=== PATIENT | male | born 1960 | race Caucasian/White ===

== ENCOUNTER 2019-11-01 11:57 | Inpatient (IN) | payer SELFPAY ==
[2019-11-01] VITALS (11 sets, daily range): BP systolic 105–132; BP diastolic 77–112
[~2019-11-01] VITALS: Ht 175.2 cm; Wt 94.8 kg
[2019-11-01] MEDS ORDERED: ASPIRIN 81 MG CHEW (CHILDREN'S ASA) ONE (12:09)
[2019-11-01] MEDS ORDERED: NS (IVPB) 0 ML ONE (12:09)
[2019-11-01] MEDS ORDERED: ENOXAPARIN 100 MG/1 ML (LOVENOX) SYR ONE (12:09)
[2019-11-01] MEDS ORDERED: DILTIAZEM 125 MG/25 ML IV (CARDIZEM) IV ONE (12:10)
[2019-11-01] MEDS ORDERED: DILTIAZEM 25 MG/5 ML INJ (CARDIZEM) VIAL ONE (12:10)
[2019-11-01] MEDS ORDERED: ENOXAPARIN 100 MG/1 ML (LOVENOX) SYR SC ONE (12:15)
[2019-11-01] MEDS ORDERED: DILTIAZEM IV FOR DRIP 125 MG in NS (IVPB) 100 ML IV SCH (12:15)
[2019-11-01] MEDS ORDERED: ASPIRIN 81 MG CHEW (CHILDREN'S ASA) PO ONE (12:15)
[2019-11-01] MEDS ORDERED: DILTIAZEM 25 MG/5 ML INJ (CARDIZEM) VIAL IVP ONE (12:15)
--- NOTE | 2019-11-01 12:16 | ED Respiratory ---
General Chief Complaint: Respiratory Problems Stated Complaint: SOA;DIZZINESS Source: patient Exam Limitations: no limitations History of Present Illness Date Seen by Provider: Nov 01, 2019 Time Seen by Provider: 12:13 Initial Comments To ER with reports of shortness of breath and dizziness. He's had a cough since [place]. He's had shortness of breath all the time worse with exertion since 1 week prior to . No fevers or chills. Was seen at [facility] today for these complaints simply because he is tired of them, not because they're any worse than they have been for the past 1.5 months. I he was noted to have tachycardia with rate of about 1:30, significant pitting edema and tachypnea. He denies any medication use, he takes an aspirin on an as-needed basis for aches and pains. 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 He is a nonsmoker, only occasionally drinks alcohol about one beer every couple weeks. [facility] did do a portable chest x-ray showing a right-sided pleural effusion, (that x- ray has been cloud to us and is viewable on Synapse). Timing/Duration: constant Severity: moderate Associated Symptoms: cough, shortness of breath Allergies and Home Medications Allergies Coded Allergies: No Known Drug Allergies (Unverified , 11/01/19) Patient Home Medication List Home Medication List Reviewed: Yes Review of Systems Review of Systems Constitutional: see HPI, malaise, weakness EENTM: see HPI Respiratory: see HPI, cough Cardiovascular: no symptoms reported Genitourinary: no symptoms reported Musculoskeletal: no symptoms reported Skin: no symptoms reported Psychiatric/Neurological: No Symptoms Reported Hematologic/Lymphatic: No Symptoms Reported Immunological/Allergic: no symptoms reported Past Cvfylpv-Bipnsc-Hxzfkg Hx Patient Social History Recent Foreign Travel: No Contact w/Someone Who Travel: No Physical Exam Vital Signs - First Documented 11/01/19 11:57 Temp 37.2 Pulse 145 Resp 11 B/P (MAP) 130/112 (118) Pulse Ox 96 O2 Delivery Room Air Capillary Refill : Height: '" Weight: lbs. oz. kg; BMI Method: General Appearance: WD/WN, mild distress (tachypnea. Speaks in full sentences.) HEENT: PERRL/EOMI, normal ENT inspection Neck: non-tender, full range of motion, other (no jugular vein distention though he does have a fairly thick neck which would make this difficult to assess) Respiratory: no respiratory distress, no accessory muscle use, other (diminished right base) Cardiovascular: tachycardia (rate of 130 to 150), irregularly irregular Gastrointestinal: normal bowel sounds, non tender, soft Extremities: other (he has 2+ to 3+ pitting edema up to the mid thighs bilatera lly) Neurologic/Psychiatric: alert, normal mood/affect, oriented x 3 Skin: normal color, warm/dry Progress/Results/Core Measures Suspected Sepsis SIRS Temperature: Pulse: Respiratory Rate: Laboratory Tests 11/01/19 12:08: White Blood Count 13.0H Blood Pressure / Mean: Laboratory Tests 11/01/19 12:08: Creatinine 0.82, INR Comment 1.3, Platelet Count 376, Total Bilirubin 2.7H Results/Orders Lab Results Laboratory Tests Test 11/01/19 12:08 11/01/19 13:25 Range/Units White Blood Count 13.0 H 4.3-11.0 10^3/uL Red Blood Count 5.42 4.35-5.85 10^6/uL Hemoglobin 16.2 13.3-17.7 G/DL Hematocrit 49 40-54 % Mean Corpuscular Volume 90 80-99 FL Mean Corpuscular Hemoglobin 30 25-34 PG Mean Corpuscular Hemoglobin Concent 33 32-36 G/DL Red Cell Distribution Width 13.7 10.0-14.5 % Platelet Count 376 130-400 10^3/uL Mean Platelet Volume 10.5 H 7.4-10.4 FL Neutrophils (%) (Auto) 81 H 42-75 % Lymphocytes (%) (Auto) 12 12-44 % Monocytes (%) (Auto) 7 0-12 % Eosinophils (%) (Auto) 1 0-10 % Basophils (%) (Auto) 0 0-10 % Neutrophils # (Auto) 10.5 H 1.8-7.8 X 10^3 Lymphocytes # (Auto) 1.5 1.0-4.0 X 10^3 Monocytes # (Auto) 0.9 0.0-1.0 X 10^3 Eosinophils # (Auto) 0.1 0.0-0.3 10^3/uL Basophils # (Auto) 0.0 0.0-0.1 10^3/uL Prothrombin Time 16.3 H 12.2-14.7 SEC INR Comment 1.3 0.8-1.4 Activated Partial Thromboplast Time 37 H 24-35 SEC Sodium Level 140 135-145 MMOL/L Potassium Level 3.3 L 3.6-5.0 MMOL/L Chloride Level 103 98-107 MMOL/L Carbon Dioxide Level 21 21-32 MMOL/L Anion Gap 16 H 5-14 MMOL/L Blood Urea Nitrogen 13 7-18 MG/DL Creatinine 0.82 0.60-1.30 MG/DL Estimat Glomerular Filtration Rate > 60 BUN/Creatinine Ratio 16 Glucose Level 139 H 70-105 MG/DL Calcium Level 8.9 8.5-10.1 MG/DL Corrected Calcium 9.5 8.5-10.1 MG/DL Magnesium Level 1.6 1.6-2.4 MG/DL Total Bilirubin 2.7 H 0.1-1.0 MG/DL Aspartate Amino Transf (AST/SGOT) 26 5-34 U/L Alanine Aminotransferase (ALT/SGPT) 32 0-55 U/L Alkaline Phosphatase 78 40-136 U/L Myoglobin 55.5 10.0-92.0 NG/ML Troponin I 0.040 H <0.028 NG/ML B-Type Natriuretic Peptide 1255.4 H <100.0 PG/ML Total Protein 6.6 6.4-8.2 GM/DL Albumin 3.3 3.2-4.5 GM/DL Thyroid Stimulating Hormone (TSH) 0.92 0.35-4.94 UIU/ML Free Thyroxine 1.27 0.70-1.48 NG/DL Urine Opiates Screen NEGATIVE NEGATIVE Urine Oxycodone Screen NEGATIVE NEGATIVE Urine Methadone Screen NEGATIVE NEGATIVE Urine Propoxyphene Screen NEGATIVE NEGATIVE Urine Barbiturates Screen NEGATIVE NEGATIVE Ur Tricyclic Antidepressants Screen NEGATIVE NEGATIVE Urine Phencyclidine Screen NEGATIVE NEGATIVE Urine Amphetamines Screen NEGATIVE NEGATIVE Urine Methamphetamines Screen NEGATIVE NEGATIVE Urine Benzodiazepines Screen NEGATIVE NEGATIVE Urine Cocaine Screen NEGATIVE NEGATIVE Urine Cannabinoids Screen NEGATIVE NEGATIVE My Orders Orders - AC AG APRN Cbc With Automated Diff (11/01/19 12:02) Magnesium (11/01/19 12:02) Ekg Tracing (11/01/19 12:02) Comprehensive Metabolic Panel (11/01/19 12:02) Myoglobin Serum (11/01/19 12:02) Protime With Inr (11/01/19 12:02) Partial Thromboplastin Time (11/01/19 12:02) O2 (11/01/19 12:02) Monitor-Rhythm Ecg Trace Only (11/01/19 12:02) Lipid Panel (11/02/19 06:00) Ed Iv/Invasive Line Start (11/01/19 12:02) BNP (11/01/19 12:02) Troponin I (11/01/19 12:02) Thyroid Stimulating Hormone (11/01/19 12:02) Free T4 (Free Thyroxine) (11/01/19 12:02) Drug Screen Stat (Urine) (11/01/19 12:02) Ct Angio Chest W (11/01/19 12:02) Aspirin Chewable Tablet (Baby Aspirin Ch (11/01/19 12:15) Enoxaparin Injection (Lovenox Injection) (11/01/19 12:15) Ns (Ivpb) (Sodium C... W/Diltiazem Iv Fo (11/01/19 12:15) Diltiazem Injection (Cardizem Injection) (11/01/19 12:15) Aspirin Chewable Tablet (Baby Aspirin Ch (11/01/19 12:09) Ns (Ivpb) (Sodium Chloride 0.9% Ivpb Bag (11/01/19 12:09) Enoxaparin Injection (Lovenox Injection) (11/01/19 12:09) Diltiazem Injection (Cardizem Injection) (11/01/19 12:10) Diltiazem Iv For Drip (Cardizem Iv For D (11/01/19 12:10) Echo W Doppler/Color Flow (11/01/19 12:16) Ns (Ivpb) (Sodium Chloride 0.9%) (11/01/19 12:45) Potassium Cl 10meq/50ml Ivpb (Kcl 10 Meq (11/01/19 12:45) Magnesium 1 Gm/100 Ml Ivpb (Magnesium Higgins (11/01/19 12:45) Furosemide Injection (Lasix Injection) (11/01/19 12:45) Iohexol Injection (Omnipaque 350 Mg/Ml 1 (11/01/19 12:45) Received Contrast (Hold Metformin- Contr (11/01/19 12:45) Ns (Ivpb) (Sodium Chloride 0.9% Ivpb Bag (11/01/19 12:45) Piperacillin Sodium/Tazobactam (Zosyn Vi (11/01/19 13:30) Medications Given in ED Current Medications Medications Dose Ordered Sig/Jamie Route Start Time Stop Time Status Last Admin Dose Admin Aspirin 324 mg ONCE ONCE PO 11/01/19 12:15 11/01/19 12:16 DC 11/01/19 12:15 324 MG Diltiazem HCl 10 mg ONCE ONCE IVP 11/01/19 12:15 11/01/19 12:16 DC 11/01/19 12:17 10 MG Enoxaparin Sodium 100 mg ONCE ONCE SC 11/01/19 12:15 11/01/19 12:16 DC 11/01/19 12:18 100 MG Iohexol 100 ml ONCE ONCE IV 11/01/19 12:45 11/01/19 12:46 DC 11/01/19 13:08 85 ML Piperacillin Sod/ Tazobactam Sod 4.5 gm/Sodium Chloride 100 ml @ 200 mls/hr ONCE ONCE IV 11/01/19 13:30 11/01/19 13:59 DC 11/01/19 13:47 200 MLS/HR Vital Signs/I&O 11/01/19 11/01/19 11:57 12:21 Temp 37.2 Pulse 145 116 Resp 11 20 B/P (MAP) 130/112 (118) 153/113 Pulse Ox 96 94 O2 Delivery Room Air Room Air Capillary Refill : Progress Note : Progress Note NAME: STEVEN LANDA [facility] REC#: [id number] PT STATUS: REG ER : 1960 PHYSICIAN: AC AG APRN ADMIT DATE: 11/01/19/ER Draft Date of Exam:11/01/19 CT ANGIO CHEST W PROCEDURE: CT angiography of the chest with contrast. TECHNIQUE: Multiple contiguous axial images were obtained through the chest after uneventful bolus administration of intravenous contrast. 3D reconstructed CTA MIP acquisitions were also performed. Auto Exposure Controls were utilized during the CT exam to meet ALARA standards for radiation dose reduction. All CT scans use one or more of the following dose optimizing techniques: automated exposure control, MA and/or KvP adjustment based on patient size and exam type or iterative reconstruction. INDICATION: Cough with dizziness and shortness of breath. COMPARISON: No prior studies are available for comparison. FINDINGS: Evaluation of pulmonary arterial system demonstrates numerous filling defects within bilateral lobar, segmental and subsegmental branches involving bilateral upper and lower lobes consistent with pulmonary emboli. No saddle embolus is identified. Heart does appear to be enlarged. There is no pericardial fluid. There is a very small left pleural effusion. There is a large right pleural effusion. There is associated extensive infiltrate throughout the right lower lobe which shows significant consolidation. There is also some moderate consolidation in right middle lobe. Lesser area of airspace infiltrate in the lingula seen. Left upper lobe is clear. There are some mildly prominent lymph nodes in the mediastinum which could be reactive. No definite mass is identified. Upper abdomen is unremarkable. IMPRESSION: Findings consistent with bilateral pulmonary emboli, as described. There is extensive infiltrate and consolidation throughout the right lower lobe and right middle lobe with some patchy lingular infiltrate. There is a large right and small left pleural effusion. No definite underlying mass is identified but follow-up after course of therapy is recommended for further evaluation. Dictated on workstation # [id number] Dict: 11/01/19 1316 Trans: 11/01/19 1336 [facility] [id number] Interpreted by: RIGOBERTO HARRISON MD Electronically signed by: Departure Communication (Admissions) Time/Spoke to Admitting Phy: 13:[address] Hightower, will admit, consult Dr. Munoz as well for the pleural effusion. Time/Spoke to Consulting Phy: 13:[address] Fine, recommends continuing the Lovenox dose at 1 mg/kg twice a day, bilateral lower extremity venous ultrasound, 2-D echocardiogram today, continue the Cardizem drip and add amiodarone drip. 1327-currently blood pressure 117/98, heart rate 104, oxygen saturation 98% 2 L. Cardizem drip infusing at 10 mg an hour. He has received Lovenox here. Impression Primary Impression: Acute cor pulmonale Additional Impression: Atrial fibrillation with rapid ventricular response Disposition: ADMITTED INPATIENT Condition: Stable Admissions Decision to Admit Reason: Admit from ER (General) Decision to Admit/Date: Nov 01, 2019 Time/Decision to Admit Time: 13:16 Departure-Patient Inst. Referrals: [facility] (PCP) Primary Care Physician AC AG APRN Nov 01, 2019 12:16
[2019-11-01 12:19] LABS: BASOPHILS % (AUTO) 0 % (0-10); EOSINOPHILS # (AUTO) 0.1 10^3/uL (0.0-0.3); EOSINOPHILS % (AUTO) 1 % (0-10); HEMATOCRIT 49 % (40-54); HEMOGLOBIN 16.2 G/DL (13.3-17.7); LYMPHOCYTES # (AUTO) 1.5 X 10^3 (1.0-4.0); LYMPHOCYTES % (AUTO) 12 % (12-44); MEAN CORPUSCULAR HEMOGLOBIN 30 PG (25-34); MEAN CORPUSCULAR HGB CONC 33 G/DL (32-36); MEAN CORPUSCULAR VOLUME 90 FL (80-99); MEAN PLATELET VOLUME 10.5 FL (7.4-10.4); MONOCYTES # (AUTO) 0.9 X 10^3 (0.0-1.0); MONOCYTES % (AUTO) 7 % (0-12); NEUTROPHILS # (AUTO) 10.5 X 10^3 (1.8-7.8); NEUTROPHILS % (AUTO) 81 % (42-75); PLATELET COUNT 376 10^3/uL (130-400); RED CELL DISTRIBUTION WIDTH 13.7 % (10.0-14.5)
[2019-11-01 12:31] LABS: INR 1.3 (0.8-1.4); PROTHROMBIN TIME PATIENT 16.3 SEC (12.2-14.7)
[2019-11-01 12:39] LABS: ALANINE AMINOTRANSFERASE 32 U/L (0-55); ALBUMIN 3.3 GM/DL (3.2-4.5); ALKALINE PHOSPHATASE 78 U/L (40-136); BILIRUBIN,TOTAL 2.7 MG/DL (0.1-1.0); BUN/CREATININE RATIO 16; CALCIUM 8.9 MG/DL (8.5-10.1); CARBON DIOXIDE 21 MMOL/L (21-32); CHLORIDE 103 MMOL/L (98-107); CREATININE SERUM 0.82 MG/DL (0.60-1.30); GFR ESTIMATED > 60; GLUCOSE 139 MG/DL (70-105); MAGNESIUM 1.6 MG/DL (1.6-2.4); POTASSIUM 3.3 MMOL/L (3.6-5.0); SODIUM 140 MMOL/L (135-145); TOTAL PROTEIN 6.6 GM/DL (6.4-8.2)
[2019-11-01] MEDS ORDERED: FUROSEMIDE 40 MG/4 ML INJ (LASIX) IVP ONE (12:45)
[2019-11-01] MEDS ORDERED: IOHEXOL 350 MG/ML 100 ML (OMNIPAQUE 350) VIAL IV ONE (12:45)
[2019-11-01] MEDS ORDERED: POTASSIUM CL 10MEQ/50ML IVPB 50 ML IV SCH (12:45)
[2019-11-01] MEDS ORDERED: NS 100 ML (IVPB) BAG IV ONE (12:45)
[2019-11-01] MEDS ORDERED: NS (IVPB) 250 ML IV ONE (12:45)
[2019-11-01] MEDS ORDERED: HOLD METFORMIN - RECEIVED CONTRAST 20 ML VIAL IV SCH (12:45)
[2019-11-01 12:59] LABS: FREE T4 (FREE THYROXINE) 1.27 NG/DL (0.70-1.48)
[2019-11-01] MEDS ORDERED: PIPERACILLIN SODIUM/TAZOBACTAM 4.5 GM in NS (IVPB) 100 ML IV ONE (13:30)
--- NOTE | 2019-11-01 13:31 | NUR ---
hold lasix at this time per Ryne Hernández
[2019-11-01] MEDS: MAGNESIUM 1 GM/100 ML IVPB 100 ML IV SCH ×2 (13:32→17:43)
--- NOTE | 2019-11-01 13:37 | Diagnostic Imaging Report ---
PROCEDURE: CT angiography of the chest with contrast. TECHNIQUE: Multiple contiguous axial images were obtained through the chest after uneventful bolus administration of intravenous contrast. 3D reconstructed CTA MIP acquisitions were also performed. Auto Exposure Controls were utilized during the CT exam to meet ALARA standards for radiation dose reduction. All CT scans use one or more of the following dose optimizing techniques: automated exposure control, MA and/or KvP adjustment based on patient size and exam type or iterative reconstruction. INDICATION: Cough with dizziness and shortness of breath. COMPARISON: No prior studies are available for comparison. FINDINGS: Evaluation of pulmonary arterial system demonstrates numerous filling defects within bilateral lobar, segmental and subsegmental branches involving bilateral upper and lower lobes consistent with pulmonary emboli. No saddle embolus is identified. Heart does appear to be enlarged. There is no pericardial fluid. There is a very small left pleural effusion. There is a large right pleural effusion. There is associated extensive infiltrate throughout the right lower lobe which shows significant consolidation. There is also some moderate consolidation in right middle lobe. Lesser area of airspace infiltrate in the lingula seen. Left upper lobe is clear. There are some mildly prominent lymph nodes in the mediastinum which could be reactive. No definite mass is identified. Upper abdomen is unremarkable. IMPRESSION: Findings consistent with bilateral pulmonary emboli, as described. There is extensive infiltrate and consolidation throughout the right lower lobe and right middle lobe with some patchy lingular infiltrate. There is a large right and small left pleural effusion. No definite underlying mass is identified but follow-up after course of therapy is recommended for further evaluation. Dictated by: Dictated on workstation # [id number]
[2019-11-01 13:45] LABS: AMPHETAMINE SCREEN, URINE NEGATIVE (NEGATIVE); BARBITURATE SCREEN URINE NEGATIVE (NEGATIVE); BENZODIAZEPINES SCREEN URINE NEGATIVE (NEGATIVE); CANNABINOID SCREEN, URINE NEGATIVE (NEGATIVE); COCAINE SCREEN URINE NEGATIVE (NEGATIVE); METHADONE STAT NEGATIVE (NEGATIVE); METHAMPHETAMINE SCREEN URINE S NEGATIVE (NEGATIVE); OPIATE SCREEN URINE NEGATIVE (NEGATIVE); OXYCODONE STAT NEGATIVE (NEGATIVE); PROPOXYPHENE STAT NEGATIVE (NEGATIVE); TRICYCLIC ANTIDEPRESSANTS SCRE NEGATIVE (NEGATIVE)
--- NOTE | 2019-11-01 14:01 | NUR ---
Babatunde in room with pt at this time
--- NOTE | 2019-11-01 15:16 | History & Physical-Hospitalist ---
History of Present Illness HPI/Chief Complaint Chief complaint: Shortness of breath with fatigue History of present illness: This is a 59-year-old male who has not seen a doctor for 5 years but saw [facility] Kaden Lawler when he was last seen who reports he's been in excellent health until Halloween of this year when he began having a cough and shortness of breath and wheezing and severe fatigue. He denied any significant other issues such as weight loss or weight gain but he does report lower extremity edema. He went to the ER was found to have hypoxia cytosis anasarca pleural effusion with bilateral pulmonary emboli and infiltrate with new onset atrial fibrillation with rapid ventricular response with elevated troponin and BNP so he was placed on Lovenox administered to the ICU for close monitoring with cardiology and general surgery consultation. He reports that he had a right lower extremity melanoma at 37 years old status post resection at [facility] but has had no other surgeries or trauma to the left leg where the ultrasound confirmed the acute left lower extremity DVT. 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 He lives alone. Source: patient, RN/MD Exam Limitations: clinical condition Date Seen 11/01/19 Time Seen by a Provider: 15:30 Attending Physician Justyna Hightower DO [facility] Referring Physician Date of Admission Nov 01, 2019 at 13:40 Home Medications & Allergies Home Medications Reviewed patient Home Medication Reconciliation performed by pharmacy medication reconciliations aircraft engine technician and/or nursing. Patients Allergies have been reviewed. 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 in [employer]) Alcohol Use: Denies Use Recreational Drug Use: No Smoking Status: Never a Smoker 2nd Hand Smoke Exposure: No Recent Foreign Travel: No Contact w/other who traveled: No Recent Hopitalizations: No Recent Infectious Disease Expo: No Past Medical History right lower leg melanoma resection 1995 from [facility] Cardiac: Hypertension Cancer: Skin Did You Recieve Any Treatments: Yes What Type of Treatment Did You: Surgical Intervention History of Blood Disorders: No Review of Systems Constitutional: see HPI, dizziness, malaise, weakness Respiratory: cough, dyspnea on exertion, short of breath, wheezing Cardiovascular: chest pain Psychiatric/Neurological: Anxiety All Other Systems Reviewed Negative Unless Noted: Yes Physical Exam Physical Exam Vital Signs Vital Signs - First Documented 11/01/19 11/01/19 11:57 14:00 Temp 37.2 Pulse 145 Resp 11 B/P (MAP) 130/112 (118) Pulse Ox 96 O2 Delivery Room Air O2 Flow Rate 2.00 Capillary Refill : Less Than 3 Seconds Height, Weight, BMI Height: '" Weight: lbs. oz. kg; 34.00 BMI Method: General Appearance: WD/WN, Anxious, Chronically ill, Mild Distress Eyes: Right Eye Normal Inspection, Right Eye PERRL HEENT: PERRL/EOMI, Normal ENT Inspection, Pharynx Normal, Moist Mucous Membranes Neck: Full Range of Motion, Normal Inspection, Non Tender Respiratory: Chest Non Tender, No Respiratory Distress, Accessory Muscle Use, Decreased Breath Sounds, Wheezing Cardiovascular: No Gallop, No JVD, No Murmur, Normal Peripheral Pulses, Irregularly Irregular Gastrointestinal: Normal Bowel Sounds, No Organomegaly, No Pulsatile Mass, Non Tender, Soft Back: Normal Inspection, No CVA Tenderness, No Vertebral Tenderness Extremity: Normal Capillary Refill, Normal Inspection, Normal Range of Motion, Non Tender, No Calf Tenderness, Pedal Edema Neurologic/Psychiatric: Alert, Oriented x3, No Motor/Sensory Deficits, Normal 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 Assessment/Plan Admission Diagnosis Assessment: Bilateral pulmonary emboli Left lower extremity DVT acute New onset atrial fibrillation with rapid ventricular response History of melanoma 1996 status post resection right lower leg at [facility] at 37 years old Hypertension Elevated troponin likely Type II NSTEMI Elevated BNP checking echocardiogram Right-sided pleural effusion consulting general surgery for possible t horacentesis Right-sided pneumonia Hypoxia Tachycardia Low albumin Hypokalemia Plan: Lovenox Supportive care IV antibiotics Oxygen Cardizem drip Cardiology consult General surgery consult Monitor closely Admission Status: Inpatient Order (span 2 midnights) Reason for Inpatient Admission: Bilateral pulmonary emboli with infiltrate and hypoxemia and tachycardia and elevated troponin Diagnosis/Problems Diagnosis/Problems (1) Bilateral pulmonary embolism (2) Acute cor pulmonale Status: Acute (3) Atrial fibrillation with rapid ventricular response Status: Acute (4) Acute CHF Status: Acute Qualifiers: Heart failure type: unspecified Qualified Codes: I50.9 - Heart failure, unspecified (5) History of melanoma (6) Left leg DVT (7) Elevated troponin (8) Elevated brain natriuretic peptide (BNP) level (9) Anxiety (10) Abnormal albumin JUSTYNA HIGHTOWER DO Nov 01, 2019 15:16
[2019-11-01 15:26] LABS: ABG BASE EXCESS -0.5 MMOL/L (-2.5-2.5); ABG OXYGEN SATURATION 98 % (94-100); ABG PCO2 29 MMHG (35-45); ABG PO2 84 MMHG (79-93); ABG TCO2 23.4 MMOL/L (21.0-31.0)
[2019-11-01 15:28] LABS: ALLENS TEST YES-POS; INSPIRED O2 2; PATIENT TEMP 36.4; VENTILATOR NO
[2019-11-01] MEDS ORDERED: VITA400C60 PO (15:43)
[2019-11-01] MEDS ORDERED: ASPI325T32 PO (15:43)
[2019-11-01] MEDS ORDERED: MULT-851 PO (15:43)
[2019-11-01] MEDS ORDERED: IBUP-30 PO (15:43)
[2019-11-01] MEDS ORDERED: CYAN-41 PO (15:43)
--- NOTE | 2019-11-01 15:44 | NUR ---
PATIENT DOES NOT TAKE ANY PRESCRIPTION MEDICATION. HE LISTS HIS OTC MEDS. OTC: ASPIRIN 325MG PRN IBU 200MG PRN VITAMIN E DAILY VITAMIN B12 DAILY MTV DAILY
--- NOTE | 2019-11-01 15:48 | Diagnostic Imaging Report ---
PROCEDURE: US Venous Lower Ext Jose. TECHNIQUE: Multiple real-time grayscale images were obtained over the lower extremities in various projections, bilaterally. Additional duplex Doppler and color Doppler images were also obtained. INDICATION: Pulmonary emboli, deep venous thrombosis, and shortness of breath COMPARISON: None available. FINDINGS: Internal echoes, lack of flow, and lack of compression are noted within the left popliteal vein. Similar findings are identified extending into the deep venous structures of the left calf region, including the left peroneal vein. Otherwise, normal flow, compression, and augmentation within the visualized deep venous structures of the bilateral lower extremities. IMPRESSION: Occlusive thrombus within the left popliteal vein extending into the deep venous structures of the left calf region. No evidence of deep venous thrombosis within the right lower extremity. Report given to Ryne Hernández APRN, at 5:04 p.m. 11/01/2018/onel Dictated by: Dictated on workstation # [id number]
--- NOTE | 2019-11-01 15:48 | Consultation-Cardiology ---
HPI-Cardiology Cardiology Consultation: Date of Consultation 11/01/19 Date of Admission Attending Physician Justyna Hightower DO Admitting Physician [place] Consulting Physician Vincent FINE MD HPI: Time Seen by a Provider: 15:00 Chief Complaint: Shortness of breath, cough This is a 59-year-old gentleman who presents to the ER with shortness of breath, cough and occasional dizziness. He is been having cough before Thanks[place] and has been getting worse. He complains of hemoptysis as well. He denies active smoking. He does drink alcohol occasionally. He denies any pertinent family history. Also complains of tachycardia and palpitations. Significant shortness of breath resulted in him coming to the ER. Review of Systems-Cardiology Review of Systems Constitutional: As described under HPI; No As described under HPI, No no symptoms reported, No chills, No fever, No lightheadedness Eyes: No As described under HPI, No no symptoms reported, No blindness, No blurred vision, No contact lenses, No drainage, No decreased acuity, No foreign body sensation, No pain, No vision change Ears/Nose/Throat: No As described under HPI, No no symptoms reported, No chronic hearing loss, No ear discharge, No ear pain, No nasal drainage, No ulcerations Respiratory: No no symptoms reported; As described under HPI; No As described under HPI; cough, orthopnea; No shortness of breath, No SOB with excertion Cardiovascular: No no symptoms reported; As described under HPI; No As described under HPI, No chest pain; edema, irregular heart rate; No lightheadedness; palpitations Gastrointestinal: No no symptoms reported, No As described under HPI, No abdomen distended, No abdominal pain, No blood streaked bowels, No constipation, No diarrhea, No nausea, No vomiting, No stool coloration changes Genitourinary: No As described under HPI, No burning, No dysuria, No discharge, No frequency, No flank pain, No hematuria, No urgency Skin: No rash, No skin related problems, No ulcerations Psychiatric/Neurological: No anxiety, No depression, No seizure, No focal weakness, No syncope Hematologic: No bleeding abnormalities DWM-Ptcfds-Sbupiz Hx Patient Social History Alcohol Use: Occasionally Uses Recreational Drug Use: No 2nd Hand Smoke Exposure: No Recent Foreign Travel: No Recent Infectious Disease Expo: No Hospitalization with Isolation: Denies Immunizations Up To Date Date of Influenza Vaccine: Nov 16, 1986 Past Medical History PMH As described under Assessment. Allergies and Home Medications Allergies Coded Allergies: No Known Drug Allergies (Unverified , 11/01/19) Patient Home Medication List Home Medication List Reviewed: Yes Physical Exam-Cardiology Physical Exam Vital Signs/I&O 11/01/19 11/01/19 11/01/19 11/01/19 11:57 12:21 14:00 14:11 Temp 37.2 37.2 Pulse 145 116 79 Resp 11 20 20 B/P (MAP) 130/112 (118) 153/113 120/90 (126) Pulse Ox 96 94 98 98 O2 Delivery Room Air Room Air Nasal Cannula Room Air O2 Flow Rate 2.00 11/01/19 11/01/19 14:50 15:24 Pulse 89 O2 Delivery Nasal Cannula O2 Flow Rate 2.00 Capillary Refill : Less Than 3 Seconds Constitutional: appears stated age, apparent distress HEENT: No PERRL, No normal ENT inspection, No TMs normal, No pharynx normal, No scleral icterus (R), No scleral icterus (L), No pale conjunctivae (R), No pale conjunctivae (L), No photophobia, No TM abnormal (R), No TM abnormal (L), No pharyngeal erythema, No tonsillar exudate, No other, No discharge, No EOMI, No hearing is well preserved, No hard of hearing, No oral hygience is good, No ulceration, No xanthelasmas are seen Neck: No non-tender, No full range of motion, No supple, No normal inspection, No carotid bruit, No limited range of motion, No lymphadenopathy (R), No lymphadenopathy (L), No tender lateral, No tender midline, No thyromegaly, No other, No carotid pulses are 2 + bilaterally, No with good upstrokes Respiratory: accessory muscle use, chest is bilaterally symmetric, other (decreased air entry bilaterally) Cardiovascular: irregularly irregular, tachycardia, S1 and S2 Gastrointestinal: soft, audible bowel sounds; No spleenomegaly Rectal: deferred Extremities: normal range of motion, non-tender, normal inspection; No clubbing, No cyanosis; no lower extremity edema bilateral; No significant edema Neurologic/Psychiatric: no motor/sensory deficits, alert, normal mood/affect, oriented x 3, power is 5/5 both on sides Skin: normal color, warm/dry; No rash, No ulcerations Data Review Labs Laboratory Tests 11/01/19 12:08: White Blood Count 13.0H, Red Blood Count 5.42, Hemoglobin 16.2, Hematocrit 49, Mean Corpuscular Volume 90, Mean Corpuscular Hemoglobin 30, Mean Corpuscular Hemoglobin Concent 33, Red Cell Distribution Width 13.7, Platelet Count 376, Mean Platelet Volume 10.5H, Neutrophils (%) (Auto) 81H, Lymphocytes (%) (Auto) 12, Monocytes (%) (Auto) 7, Eosinophils (%) (Auto) 1, Basophils (%) (Auto) 0, Neutrophils # (Auto) 10.5H, Lymphocytes # (Auto) 1.5, Monocytes # (Auto) 0.9, Eosinophils # (Auto) 0.1, Basophils # (Auto) 0.0, Prothrombin Time 16.3H, INR Comment 1.3, Activated Partial Thromboplast Time 37H, Sodium Level 140, Potassium Level 3.3L, Chloride Level 103, Carbon Dioxide Level 21, Anion Gap 16H , Blood Urea Nitrogen 13, Creatinine 0.82, Estimat Glomerular Filtration Rate > 60, BUN/Creatinine Ratio 16, Glucose Level 139H, Calcium Level 8.9, Corrected Calcium 9.5, Magnesium Level 1.6, Total Bilirubin 2.7H, Aspartate Amino Transf (AST/SGOT) 26, Alanine Aminotransferase (ALT/SGPT) 32, Alkaline Phosphatase 78, Myoglobin 55.5, Troponin I 0.040H, B-Type Natriuretic Peptide 1255.4H, Total Protein 6.6, Albumin 3.3, Thyroid Stimulating Hormone (TSH) 0.92, Free Thyroxine 1.27 11/01/19 13:25: Urine Opiates Screen NEGATIVE, Urine Oxycodone Screen NEGATIVE, Urine Methadone Screen NEGATIVE, Urine Propoxyphene Screen NEGATIVE, Urine Barbiturates Screen NEGATIVE, Ur Tricyclic Antidepressants Screen NEGATIVE, Urine Phencyclidine Screen NEGATIVE, Urine Amphetamines Screen NEGATIVE, Urine Methamphetamines Screen NEGATIVE, Urine Benzodiazepines Screen NEGATIVE, Urine Cocaine Screen NEGATIVE, Urine Cannabinoids Screen NEGATIVE 11/01/19 14:50: Lactic Acid Level 1.94 11/01/19 15:15: Blood Gas Puncture Site R RADIAL, Blood Gas Patient Temperature 36.4, Arterial Blood pH 7.50H, Arterial Blood Partial Pressure CO2 29L, Arterial Blood Partial Pressure O2 84, Arterial Blood HCO3 23, Arterial Blood Total CO2 23.4, Arterial Blood Oxygen Saturation 98, Arterial Blood Base Excess -0.5, Benjamin Test YES-POS, Blood Gas Ventilator Setting NO, Blood Gas Inspired Oxygen 2 Microbiology 11/01/19 Influenza Types A,B Antigen (JENNIFER) - Final, Complete ECG Impression ECG Initial ECG Impression: Atrial Fibrillation w/RVR A/P-Cardiology Assessment/Admission Diagnosis Bilateral PE, Severe right-sided pneumonia, Non-STEMI, Atrial fibrillation with rapid ventricular rate, Plan Bilateral PE, start PE dose enoxaparin. Plan to change to oral anticoagulation in the next 24 hours. Rule out DVT with venous ultrasounds. Severe right-sided pneumonia, broad-spectrum antibiotics. Defer to the primary team. Non-STEMI, could be type II myocardial infarction secondary to severe systemic illness including bilateral PE and severe right-sided pneumonia. Atrial fibrillation with rapid ventricular rate, anticoagulation and rate control. IV amiodarone as well. Unlikely to convert till resolution of severe systemic illness. Critically ill patient with numerous pulmonary and cardiac active medical issues as above. Thank you for your consultation. Please call me if you have any questions. Bruce Fine MD, FACP, FACC, FSCAI, FHRS, CCDS Interventional Cardiology Cardiac Electrophysiology Vascular Medicine and Endovascular Interventions Clinical Quality Measures DVT/VTE Risk/Contraindication: Risk Factor Score Per Nursin RFS Level Per Nursing on Admit: 4+=Very High Vincent FINE MD Nov 01, 2019 15:48
[2019-11-01] MEDS ORDERED: RT-ALBUTEROL/IPRATROPIUM 3 ML (DUONEB) VIAL INH PRN (16:00)
[2019-11-01] MEDS ORDERED: CATHETER FLUSH 10 ML SYR IV PRN (16:30)
--- NOTE | 2019-11-01 16:31 | Consultation - Surgery ---
DARCIEARBEN,MED STUDENT 11/01/19 1631: History of Present Illness History of Present Illness Patient Consulted On(sis/time) 11/01/19 16:28 Date Seen by Provider: Nov 01, 2019 Time Seen by Provider: 16:15 History of Present Illness HPI per IM: This is a 59-year-old male who has not seen a doctor for 5 years but saw [facility] Kaden Lawler when he was last seen who reports he's been in excellent health until of this year when he began having a cough and shortness of breath and wheezing and severe fatigue. He denied any significant other issues such as weight loss or weight gain but he does report lower extremity edema. He went to the ER was found to have hypoxia cytosis anasarca pleural effusion with bilateral pulmonary emboli and infiltrate with new onset atrial fibrillation with rapid ventricular response with elevated troponin and BNP so he was placed on Lovenox administered to the ICU for close monitoring with cardiology and general surgery consultation. He reports that he had a right lower extremity melanoma at 37 years old status post resection at [facility] but has had no other surgeries or trauma to the left leg where the ultrasound confirmed the acute left lower extremity DVT. 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 He lives alone. Patient examined at bedside this afternoon. He states he first began feeling short of breath around , and it has progressively gotten worse since then He states it feels like he cannot get air into his lungs. He also reports a cough since , and that he has been coughing up phlegm. He states hes been very fatigued and has had weight loss, but is unsure of how much. Allergies and Home Medications Allergies Coded Allergies: No Known Drug Allergies (Unverified , 11/01/19) Home Medications Aspirin 325 Mg Tablet.dr, 325 MG PO DAILY PRN for PAIN-MILD (1-4), (Reported) Cyanocobalamin (Vitamin B-12) 1,000 Mcg Tablet, 1,000 MCG PO DAILY, (Reported) Ibuprofen 200 Mg Tablet, 200 MG PO Q6H PRN for PAIN-MILD (1-4), (Reported) Multivits-Minerals/FA/Lycopene 1 Each Tablet, 1 TAB PO DAILY, (Reported) Vitamin E Acetate 400 Unit Capsule, 400 UNIT PO DAILY, (Reported) Past Hionvbo-Pniifb-Bocsfm Hx Patient Social History Alcohol Use: Denies Use Recreational Drug Use: No Smoking Status: Never a Smoker 2nd Hand Smoke Exposure: No Recent Foreign Travel: No Contact w/Someone Who Travel: No Recent Infectious Disease Expo: No Recent Hopitalizations: No Immunizations Up To Date Date of Influenza Vaccine: Nov 16, 1986 Surgeries History of Surgeries: Yes (skin cancer) Cardiovascular History of Cardiac Disorders: Yes Cardiac Disorders: Hypertension Neurological History of Neurological Disord: No Genitourinary History of Genitourinary Disor: No Gastrointestinal History of Gastrointestinal Di: No Musculoskeletal History of Musculoskeletal Dis: No Endocrine History of Endocrine Disorders: No HEENT History of HEENT Disorders: No Cancer History of Cancer: Yes Cancer: Skin Psychosocial History of Psychiatric Problem: No Integumentary History of Skin or Integumenta: Yes (skin cancer) Blood Transfusions History of Blood Disorders: No Family Medical History Significant Family History: Hypertension (Father) Review of Systems-General Constitutional: chills; No fever; weight loss EENTM: No blurred vision, No double vision, No eye pain Respiratory: cough, phlegm, short of breath, wheezing Cardiovascular: No chest pain; edema, palpitations Gastrointestinal: No abdominal pain, No constipation, No diarrhea Genitourinary: No dysuria, No frequency, No hematuria Musculoskeletal: No joint pain, No joint swelling Skin: No change in color; hx of skin cancer Psychiatric/Neurological: Denies Numbness, Denies Tingling Other Hematologic: no abnormal bleeding or bruising Physical Exam-General Problems Physical Exam Vital Signs Vital Signs - First Documented 11/01/19 11/01/19 11:57 14:00 Temp 37.2 Pulse 145 Resp 11 B/P (MAP) 130/112 (118) Pulse Ox 96 O2 Delivery Room Air O2 Flow Rate 2.00 Capillary Refill : Less Than 3 Seconds General Appearance: WD/WN, mild distress Eyes: Bilateral Eye PERRL, Bilateral Eye EOMI HEENT: No scleral icterus (R), No scleral icterus (L), No pharyngeal erythema Neck: non-tender, supple Respiratory: decreased breath sounds (right lower and middle lobes); No crackles Cardiovascular: no murmur, tachycardia, irregularly irregular Peripheral Pulses: 2+ Dorsalis Pedis (R), 2+ Left Dors-Pedis (L), 2+ Radial Pulses (R), 2+ Radial Pulses (L) Gastrointestinal: normal bowel sounds, non tender, soft, distended Extremities: normal capillary refill, pedal edema Neurologic/Psychiatric: alert, normal mood/affect, oriented x 3 Skin: normal color, warm/dry; No diaphoresis Lymphatic: no adenopathy (cervical and supraclavicular) Data Review Labs Laboratory Tests 11/01/19 12:08: White Blood Count 13.0H, Red Blood Count 5.42, Hemoglobin 16.2, Hematocrit 49, Mean Corpuscular Volume 90, Mean Corpuscular Hemoglobin 30, Mean Corpuscular Hemoglobin Concent 33, Red Cell Distribution Width 13.7, Platelet Count 376, Mean Platelet Volume 10.5H, Neutrophils (%) (Auto) 81H, Lymphocytes (%) (Auto) 12, Monocytes (%) (Auto) 7, Eosinophils (%) (Auto) 1, Basophils (%) (Auto) 0, Neutrophils # (Auto) 10.5H, Lymphocytes # (Auto) 1.5, Monocytes # (Auto) 0.9, Eosinophils # (Auto) 0.1, Basophils # (Auto) 0.0, Prothrombin Time 16.3H, INR Comment 1.3, Activated Partial Thromboplast Time 37H, Sodium Level 140, Potassium Level 3.3L, Chloride Level 103, Carbon Dioxide Level 21, Anion Gap 16H , Blood Urea Nitrogen 13, Creatinine 0.82, Estimat Glomerular Filtration Rate > 60, BUN/Creatinine Ratio 16, Glucose Level 139H, Calcium Level 8.9, Corrected Calcium 9.5, Magnesium Level 1.6, Total Bilirubin 2.7H, Aspartate Amino Transf (AST/SGOT) 26, Alanine Aminotransferase (ALT/SGPT) 32, Alkaline Phosphatase 78, Myoglobin 55.5, Troponin I 0.040H, B-Type Natriuretic Peptide 1255.4H, Total Protein 6.6, Albumin 3.3, Thyroid Stimulating Hormone (TSH) 0.92, Free Thyroxine 1.27 11/01/19 13:25: Urine Opiates Screen NEGATIVE, Urine Oxycodone Screen NEGATIVE, Urine Methadone Screen NEGATIVE, Urine Propoxyphene Screen NEGATIVE, Urine Barbiturates Screen NEGATIVE, Ur Tricyclic Antidepressants Screen NEGATIVE, Urine Phencyclidine Screen NEGATIVE, Urine Amphetamines Screen NEGATIVE, Urine Methamphetamines Screen NEGATIVE, Urine Benzodiazepines Screen NEGATIVE, Urine Cocaine Screen NEGATIVE, Urine Cannabinoids Screen NEGATIVE 11/01/19 14:50: Lactic Acid Level 1.94 11/01/19 15:15: Blood Gas Puncture Site R RADIAL, Blood Gas Patient Temperature 36.4, Arterial Blood pH 7.50H, Arterial Blood Partial Pressure CO2 29L, Arterial Blood Partial Pressure O2 84, Arterial Blood HCO3 23, Arterial Blood Total CO2 23.4, Arterial Blood Oxygen Saturation 98, Arterial Blood Base Excess -0.5, Benjamin Test YES-POS, Blood Gas Ventilator Setting NO, Blood Gas Inspired Oxygen 2 Microbiology 11/01/19 Influenza Types A,B Antigen (JENNIFER) - Final, Complete Radiology Date of Exam:11/01/19 CT ANGIO CHEST W PROCEDURE: CT angiography of the chest with contrast. TECHNIQUE: Multiple contiguous axial images were obtained through the chest after uneventful bolus administration of intravenous contrast. 3D reconstructed CTA MIP acquisitions were also performed. Auto Exposure Controls were utilized during the CT exam to meet ALARA standards for radiation dose reduction. All CT scans use one or more of the following dose optimizing techniques: automated exposure control, MA and/or KvP adjustment based on patient size and exam type or iterative reconstruction. INDICATION: Cough with dizziness and shortness of breath. COMPARISON: No prior studies are available for comparison. FINDINGS: Evaluation of pulmonary arterial system demonstrates numerous filling defects within bilateral lobar, segmental and subsegmental branches involving bilateral upper and lower lobes consistent with pulmonary emboli. No saddle embolus is identified. Heart does appear to be enlarged. There is no pericardial fluid. There is a very small left pleural effusion. There is a large right pleural effusion. There is associated extensive infiltrate throughout the right lower lobe which shows significant consolidation. There is also some moderate consolidation in right middle lobe. Lesser area of airspace infiltrate in the lingula seen. Left upper lobe is clear. There are some mildly prominent lymph nodes in the mediastinum which could be reactive. No definite mass is identified. Upper abdomen is unremarkable. IMPRESSION: Findings consistent with bilateral pulmonary emboli, as described. There is extensive infiltrate and consolidation throughout the right lower lobe and right middle lobe with some patchy lingular infiltrate. There is a large right and small left pleural effusion. No definite underlying mass is identified but follow-up after course of therapy is recommended for further evaluation. Dictated by: Dictated on workstation # [id number] Clinical Quality Measures DVT/VTE Risk/Contraindication: Risk Factor Score Per Nursin RFS Level Per Nursing on Admit: 4+=Very High MALA JENKINS DO 11/01/19 1725: History of Present Illness History of Present Illness Time Seen by Provider: 16:42 History of Present Illness Pt seen and examined, states "I just want to be able to breathe better". Feels SOB all the time. Pt denies CP with deep breaths. Allergies and Home Medications Allergies Coded Allergies: No Known Drug Allergies (Unverified , 11/01/19) Home Medications Aspirin 325 Mg Tablet.dr, 325 MG PO DAILY PRN for PAIN-MILD (1-4), (Reported) Cyanocobalamin (Vitamin B-12) 1,000 Mcg Tablet, 1,000 MCG PO DAILY, (Reported) Ibuprofen 200 Mg Tablet, 200 MG PO Q6H PRN for PAIN-MILD (1-4), (Reported) Multivits-Minerals/FA/Lycopene 1 Each Tablet, 1 TAB PO DAILY, (Reported) Vitamin E Acetate 400 Unit Capsule, 400 UNIT PO DAILY, (Reported) Patient Home Medication List Home Medication List Reviewed: Yes Past Extjqoz-Enkxow-Rbeeyk Hx Patient Social History Alcohol Use: Rarely Uses Recreational Drug Use: No Smoking Status: Never a Smoker 2nd Hand Smoke Exposure: No Recent Foreign Travel: No Contact w/Someone Who Travel: No Recent Infectious Disease Expo: No Recent Hopitalizations: No Seasonal Allergies Seasonal Allergies: No Surgeries History of Surgeries: Yes (resection of melanoma right lower leg) Respiratory History of Respiratory Disorde: Yes (SOB past 2 months, no medical diagnosis before now) Cardiovascular History of Cardiac Disorders: Yes Cardiac Disorders: Hypertension Neurological History of Neurological Disord: No Genitourinary History of Genitourinary Disor: No Gastrointestinal History of Gastrointestinal Di: No Musculoskeletal History of Musculoskeletal Dis: No Endocrine History of Endocrine Disorders: No HEENT History of HEENT Disorders: No Loss of Vision: Denies Hearing Impairment: Denies Cancer History of Cancer: Yes Cancer: Melanoma Psychosocial History of Psychiatric Problem: No Integumentary History of Skin or Integumenta: Yes (melenoma, right leg) Blood Transfusions History of Blood Disorders: No Review of Systems-General Musculoskeletal: No back pain, No muscle stiffness, No muscle cramps Skin: No change in hair/nails Psychiatric/Neurological: Denies Anxiety, Denies Depressed Physical Exam-General Problems Physical Exam HEENT: pharynx normal Gastrointestinal: normal bowel sounds, non tender, soft Rectal: deferred Back: CVA tenderness (R); No CVA tenderness (L), No vertebral tenderness Extremities: no calf tenderness, normal capillary refill Lymphatic: no adenopathy (cervical and supraclavicular, axillary or groin) Assessment/Plan Assessment/Plan Assessment/Plan Right Pleural Effusion Right Middle and Lower lobe Pneumonia B/L PE AFib with RVR SOB (because of all the above) Pt has a moderate right pleural effusion seen on chest CT; it is difficult to determine how much this is contributing to his SOB. He is on Lovenox because of the PE and Afib; which would be a relative contraindication to Thoracentesis. The Lovenox can be stopped if it becomes apparent that Thoracentesis would help his condition. Pt is on IV ABX for the pneumonia, he needs pulmonary toilet and breathing treatments per RT. I will follow along. Supervisory-Addendum Brief Verification & Attestation Participated in pt care: history, MDM, physical Personally performed: exam, history, MDM Care discussed with: Medical Student Procedures: n/a Verification and Attestation of Medical Student E/M Service A medical student performed and documented this service in my presence. I reviewed and verified all information documented by the medical student and made modifications to such information, when appropriate. I personally performed the physical exam and medical decision making. Mala Jenkins, Nov 01, 2019,17:32 ARBEN SPRAGUE,MED STUDENT Nov 01, 2019 16:31 MALA JENKINS DO Nov 01, 2019 17:25
[2019-11-01] MEDS: AMIODARONE 450 MG/250 ML D5W EXCEL IV SCH ×2 (16:33)
[2019-11-01] MEDS: DILTIAZEM 125 MG/NS 100 ML IV SCH ×2 (17:29)
[2019-11-01] MEDS: ENOXAPARIN 100 MG/1 ML (LOVENOX) SYR SC SCH (17:49)
[2019-11-01] MEDS: RT-ALBUTEROL/IPRATROPIUM 3 ML (DUONEB) VIAL INH SCH ×2 (18:58→22:51)
[2019-11-01] MEDS: inSUlin ASPART (NovoLOG) 1 UNIT/0.01 ML (CHARGE PER UNIT) SC SCH (21:05)
[2019-11-01] MEDS: PIPERACILLIN/TAZO 4.5 GM/NS 100 ML IV SCH ×2 (21:05)
[2019-11-02] VITALS (24 sets, daily range): BP systolic 100–136; BP diastolic 82–124
[2019-11-02] MEDS: AMIODARONE 450 MG/250 ML D5W EXCEL IV SCH ×4 (00:07→08:23)
[2019-11-02] MEDS: DILTIAZEM 125 MG/NS 100 ML IV SCH ×2 (01:49)
[2019-11-02 03:57] LABS: BASOPHILS % (AUTO) 0 % (0-10); EOSINOPHILS # (AUTO) 0.1 10^3/uL (0.0-0.3); EOSINOPHILS % (AUTO) 1 % (0-10); HEMATOCRIT 46 % (40-54); HEMOGLOBIN 14.8 G/DL (13.3-17.7); LYMPHOCYTES # (AUTO) 1.2 X 10^3 (1.0-4.0); LYMPHOCYTES % (AUTO) 11 % (12-44); MEAN CORPUSCULAR HEMOGLOBIN 30 PG (25-34); MEAN CORPUSCULAR HGB CONC 33 G/DL (32-36); MEAN CORPUSCULAR VOLUME 91 FL (80-99); MONOCYTES # (AUTO) 0.7 X 10^3 (0.0-1.0); MONOCYTES % (AUTO) 7 % (0-12); NEUTROPHILS % (AUTO) 82 % (42-75); PLATELET COUNT 374 10^3/uL (130-400); RED CELL DISTRIBUTION WIDTH 13.6 % (10.0-14.5)
[2019-11-02] MEDS: RT-ALBUTEROL/IPRATROPIUM 3 ML (DUONEB) VIAL INH SCH ×6 (04:15→21:38)
[2019-11-02 04:22] LABS: ALANINE AMINOTRANSFERASE 32 U/L (0-55); ALKALINE PHOSPHATASE 82 U/L (40-136); BILIRUBIN,TOTAL 1.8 MG/DL (0.1-1.0); BUN/CREATININE RATIO 20; CALCIUM 8.7 MG/DL (8.5-10.1); CARBON DIOXIDE 17 MMOL/L (21-32); CHLORIDE 107 MMOL/L (98-107); CHOLESTEROL 109 MG/DL (< 200); CREATININE SERUM 0.86 MG/DL (0.60-1.30); GFR ESTIMATED > 60; GLUCOSE 169 MG/DL (70-105); HDL CHOLESTEROL 17 MG/DL (40-60); MAGNESIUM 1.9 MG/DL (1.6-2.4); PHOSPHORUS 3.8 MG/DL (2.3-4.7); POTASSIUM 3.6 MMOL/L (3.6-5.0); SODIUM 139 MMOL/L (135-145); TOTAL PROTEIN 6.4 GM/DL (6.4-8.2); TRIGLYCERIDES 79 MG/DL (<150); VLDL CHOLESTEROL 16 MG/DL (5-40)
[2019-11-02] MEDS: ENOXAPARIN 100 MG/1 ML (LOVENOX) SYR SC SCH ×2 (04:27→17:31)
[2019-11-02] MEDS: PIPERACILLIN/TAZO 4.5 GM/NS 100 ML IV SCH ×6 (04:28→20:43)
[2019-11-02] MEDS: MAGNESIUM 1 GM/100 ML IVPB 100 ML IV SCH (06:33)
[2019-11-02] MEDS: POTASSIUM CL 10MEQ/50ML IVPB 50 ML IV SCH (06:33)
[2019-11-02] MEDS: KCL 20 MEQ TAB (K-DUR) PO SCH (06:34)
[2019-11-02] MEDS: inSUlin ASPART (NovoLOG) 1 UNIT/0.01 ML (CHARGE PER UNIT) SC SCH ×4 (06:34→20:43)
--- NOTE | 2019-11-02 07:43 | Diagnostic Imaging Report ---
INDICATION: Pulmonary embolus. TECHNIQUE: Single view chest 3:34 AM. CORRELATION STUDY: 11/01/2019 FINDINGS: Heart size remains enlarged. The pulmonary vasculature is slightly increased from prior study. Rather extensive infiltrate and consolidation throughout the right lung base is present. Suspect for small patchy area of infiltrate of the lingula and left lung base. Moderate right and small left pleural effusion. IMPRESSION: 1. Cardiac enlargement, stable vasculature slightly increased. 2. Extensive consolidation and likely effusion at the right lung base and to a lesser degree left lung base persists. Stable to perhaps minimally increased on the right. Dictated by: Dictated on workstation # [id number]
[2019-11-02] MEDS: PANTOPRAZOLE 40 MG (PROTONIX) VIAL IV SCH (08:13)
--- NOTE | 2019-11-02 10:59 | Progress Note - Hospitalist ---
Subjective HPI/CC On Admission Date Seen by Provider: Nov 02, 2019 Time Seen by Provider: 10:45 Chief complaint: Shortness of breath with fatigue History of present illness: This is a 59-year-old male who has not seen a doctor for 5 years but saw [facility] Kaden Lawler when he was last seen who reports he's been in excellent health until of this year when he began having a cough and shortness of breath and wheezing and severe fatigue. He denied any significant other issues such as weight loss or weight gain but he does report lower extremity edema. He went to the ER was found to have hypoxia cytosis anasarca pleural effusion with bilateral pulmonary emboli and infiltrate with new onset atrial fibrillation with rapid ventricular response with elevated troponin and BNP so he was placed on Lovenox administered to the ICU for close monitoring with cardiology and general surgery consultation. He reports that he had a right lower extremity melanoma at 37 years old status post resection at [facility] but has had no other surgeries or trauma to the left leg where the ultrasound confirmed the acute left lower extremity DVT. 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 He lives alone. Subjective/Events-last exam Patient doing better Still dyspneic but he has "breathed hard" since ABG reviewed Oxygen maintained Lovenox tolerated Abx maintained Reviewed labs Conferred with rn medical surgical of Systems General: Fatigue Pulmonary: Dyspnea Focused Exam Lactate Level 11/01/19 14:50: Lactic Acid Level 1.94 Objective Exam Vital Signs Vital Signs Date Time Temp Pulse Resp B/P (MAP) Pulse Ox O2 Delivery O2 Flow Rate FiO2 11/02/19 16:00 92 35 113/95 (101) 97 Nasal Cannula 2.00 11/02/19 15:30 36.2 Capillary Refill : Less Than 3 Seconds General Appearance: WD/WN, Anxious, Chronically ill, Mild Distress Respiratory: No Respiratory Distress, Accessory Muscle Use, Crackles, Decreased Breath Sounds, Wheezing Cardiovascular: Regular Rate, Rhythm Neurologic/Psychiatric: Alert, Oriented x3, No Motor/Sensory Deficits, Normal Mood/Affect Results/Procedures Lab Laboratory Tests 11/02/19 03:37 Patient resulted labs reviewed. Assessment/Plan Assessment and Plan Assess & Plan/Chief Complaint Assessment: Bilateral pulmonary emboli Left lower extremity DVT acute New onset atrial fibrillation with rapid ventricular response maintained on Cardizem drip History of melanoma 1996 status post resection right lower leg at [facility] at 37 years old Hypertension Elevated troponin likely Type II NSTEMI Elevated BNP checking echocardiogram Right-sided pleural effusion consulting general surgery for possible thoracentesis Right-sided pneumonia Hypoxia Tachycardia Low albumin Hypokalemia Plan: Lovenox therapeutic dosing Supportive care IV antibiotics Oxygen Cardizem drip Cardiology consult General surgery consult Monitor closely Diagnosis/Problems Diagnosis/Problems (1) Bilateral pulmonary embolism (2) Acute cor pulmonale Status: Acute (3) Atrial fibrillation with rapid ventricular response Status: Acute (4) Acute CHF Status: Acute Qualifiers: Heart failure type: unspecified Qualified Codes: I50.9 - Heart failure, unspecified (5) History of melanoma (6) Left leg DVT (7) Elevated troponin (8) Elevated brain natriuretic peptide (BNP) level (9) Anxiety (10) Abnormal albumin Clinical Quality Measures DVT/VTE Risk/Contraindication: Risk Factor Score Per Nursin RFS Level Per Nursing on Admit: 4+=Very High PATY MENDOZA DO Nov 02, 2019 10:59
[2019-11-02] MEDS ORDERED: FUROSEMIDE 40 MG/4 ML INJ (LASIX) IVP ONE (13:15)
[2019-11-02] MEDS: SACUBITRIL/VALSARTAN 24/26 MG (ENTRESTO) TABLET PO SCH ×2 (13:27→20:43)
--- NOTE | 2019-11-02 14:18 | Progress Note - Surgery ---
Subjective Time Seen by a Provider: 12:03 Subjective/Events-last exam Pt seen and examined, sitting up in bed eating lunch. Does not appear to be in any distress, pulse Ox is 97% on 2L. Pt states he thinks he is breathing better. Review of Systems Pulmonary: Dyspnea; No Cough, No Pleuritic Chest Pain Cardiovascular: Palpitations; No: Chest Pain Gastrointestinal: No: Nausea, Vomiting, Abdominal Pain Focused Exam Lactate Level 11/01/19 14:50: Lactic Acid Level 1.94 Objective Exam Vital Signs Date Time Temp Pulse Resp B/P (MAP) Pulse Ox O2 Delivery O2 Flow Rate FiO2 11/02/19 13:00 98 21 126/92 (103) 89 Nasal Cannula 2.00 11/02/19 12:00 96 32 108/83 (91) 90 Nasal Cannula 2.00 11/02/19 11:30 36.5 11/02/19 11:14 98 Nasal Cannula 2.00 11/02/19 11:00 101 44 118/93 (101) 98 Nasal Cannula 2.00 11/02/19 10:32 97 Nasal Cannula 1.00 11/02/19 10:00 82 35 112/99 (103) 94 Nasal Cannula 2.00 11/02/19 09:00 91 36 119/100 (106) 97 Nasal Cannula 2.00 11/02/19 08:00 95 33 131/124 (126) 98 Nasal Cannula 2.00 11/02/19 08:00 98 Nasal Cannula 2.00 11/02/19 07:24 96 Nasal Cannula 2.00 11/02/19 07:16 36.8 11/02/19 07:00 83 11/02/19 07:00 85 30 115/83 (94) 99 Nasal Cannula 2.00 11/02/19 06:00 82 29 107/94 (98) 96 Nasal Cannula 2.00 11/02/19 05:00 87 31 119/91 (100) 99 Nasal Cannula 2.00 11/02/19 04:00 87 31 100/87 (91) 97 Nasal Cannula 2.00 11/02/19 04:00 98 Nasal Cannula 2.00 11/02/19 03:00 87 17 114/82 (93) 96 Nasal Cannula 2.00 11/02/19 02:00 77 31 110/90 (97) 94 Nasal Cannula 2.00 11/02/19 01:49 86 104/91 11/02/19 01:00 82 11/02/19 01:00 84 25 103/92 (96) 90 Nasal Cannula 2.00 11/02/19 00:00 98 Nasal Cannula 2.00 11/02/19 00:00 81 18 119/82 (94) 94 Nasal Cannula 2.00 11/01/19 23:00 73 34 111/96 (101) 94 Nasal Cannula 2.00 11/01/19 22:51 92 Nasal Cannula 1.00 11/01/19 22:00 80 20 114/85 (95) 96 Nasal Cannula 2.00 11/01/19 21:00 87 30 105/77 (86) 96 Nasal Cannula 2.00 11/01/19 20:00 74 34 106/96 (99) 96 Nasal Cannula 2.00 11/01/19 20:00 98 Nasal Cannula 2.00 11/01/19 19:00 87 11/01/19 19:00 79 35 112/92 (99) 96 Nasal Cannula 2.00 11/01/19 19:00 36.6 11/01/19 18:58 83 Room Air 11/01/19 18:00 71 107/87 (94) 94 Nasal Cannula 2.00 11/01/19 17:29 82 11/01/19 17:00 97 24 132/108 (116) 96 Nasal Cannula 2.00 11/01/19 16:24 37.2 145 96 11/01/19 16:00 92 17 120/94 (103) 95 Nasal Cannula 2.00 11/01/19 16:00 98 Nasal Cannula 2.00 11/01/19 15:30 89 24 120/94 (103) 98 Nasal Cannula 11/01/19 15:24 Nasal Cannula 2.00 11/01/19 15:20 36.4 85 13 132/94 (107) 97 Nasal Cannula 2.00 11/01/19 14:50 89 l I & O 11/02/19 07:00 Intake Total 1300 ml Output Total 700 ml Balance 600 ml Capillary Refill : Less Than 3 Seconds General Appearance: WD/WN, Anxious, Chronically ill, Mild Distress HEENT: PERRL/EOMI, Moist Mucous Membranes Respiratory: Chest Non Tender, No Respiratory Distress, Accessory Muscle Use, Decreased Breath Sounds (right), Wheezing Cardiovascular: No Murmur, Normal Peripheral Pulses, Irregularly Irregular Peripheral Pulses: 2+ Dorsalis Pedis (R), 2+ Left Dors-Pedis (L), 2+ Radial Pulses (R), 2+ Radial Pulses (L) Gastrointestinal: normal bowel sounds, non tender, soft Extremity: No Calf Tenderness, Pedal Edema Neurologic/Psychiatric: Alert, Oriented x3 Skin: Normal Color, Warm/Dry Results Lab Laboratory Tests 11/01/19 14:50: Lactic Acid Level 1.94 11/01/19 15:15: Blood Gas Puncture Site R RADIAL, Blood Gas Patient Temperature 36.4, Arterial Blood pH 7.50H, Arterial Blood Partial Pressure CO2 29L, Arterial Blood Partial Pressure O2 84, Arterial Blood HCO3 23, Arterial Blood Total CO2 23.4, Arterial Blood Oxygen Saturation 98, Arterial Blood Base Excess -0.5, Benjamin Test YES-POS, Blood Gas Ventilator Setting NO, Blood Gas Inspired Oxygen 2 11/01/19 20:46: Glucometer 182H 11/02/19 03:37: White Blood Count 11.0, Red Blood Count 5.02, Hemoglobin 14.8, Hematocrit 46, Mean Corpuscular Volume 91, Mean Corpuscular Hemoglobin 30, Mean Corpuscular Hemoglobin Concent 33, Red Cell Distribution Width 13.6, Platelet Count 374, Mean Platelet Volume 11.0H, Neutrophils (%) (Auto) 82H, Lymphocytes (%) (Auto) 11L, Monocytes (%) (Auto) 7, Eosinophils (%) (Auto) 1, Basophils (%) (Auto) 0, Neutrophils # (Auto) 9.0H, Lymphocytes # (Auto) 1.2, Monocytes # (Auto) 0.7, Eosinophils # (Auto) 0.1, Basophils # (Auto) 0.0, Sodium Level 139, Potassium Level 3.6, Chloride Level 107, Carbon Dioxide Level 17L, Anion Gap 15H, Blood Urea Nitrogen 17, Creatinine 0.86, Estimat Glomerular Filtration Rate > 60, BUN/Creatinine Ratio 20, Glucose Level 169H, Calcium Level 8.7, Corrected Calcium 9.5, Phosphorus Level 3.8, Magnesium Level 1.9, Total Bilirubin 1.8H, Aspartate Amino Transf (AST/SGOT) 39H, Alanine Aminotransferase (ALT/SGPT) 32, Alkaline Phosphatase 82, Total Protein 6.4, Albumin 3.0L, Triglycerides Level 79, Cholesterol Level 109, LDL Cholesterol Direct 94, VLDL Cholesterol 16, HDL Cholesterol 17L 11/02/19 11:31: Glucometer 166H Microbiology 11/01/19 Influenza Types A,B Antigen (JENNIFER) - Final, Complete Assessment/Plan Assessment/Plan Assessment/Plan Right Pleural Effusion Right Middle and Lower lobe Pneumonia B/L PE AFib with RVR SOB (because of all the above) Pt has a moderate right pleural effusion seen on chest CT; it is difficult to determine how much this is contributing to his SOB. He is on Lovenox because of the PE and Afib; which would be a relative contraindication to Thoracentesis. The Lovenox can be stopped if it becomes apparent that Thoracentesis would help his condition. Pt is on IV ABX for the pneumonia, he needs pulmonary toilet and breathing treatments per RT. At this point his breathing is fine, would hold off on Thoracentesis. Clinical Quality Measures DVT/VTE Risk/Contraindication: Risk Factor Score Per Nursin RFS Level Per Nursing on Admit: 4+=Very High MALA REMY DO Nov 02, 2019 14:18
--- NOTE | 2019-11-02 15:47 | Cardiology Progress Note ---
Cardiology SOAP Progress Note Subjective: Some improvement in shortness of breath. Objective: I&O/Vital Signs 11/02/19 11/02/19 11/02/19 11/02/19 04:00 04:00 05:00 06:00 Pulse 87 87 82 Resp 31 31 29 B/P (MAP) 100/87 (91) 119/91 (100) 107/94 (98) Pulse Ox 98 97 99 96 O2 Delivery Nasal Cannula Nasal Cannula Nasal Cannula Nasal Cannula O2 Flow Rate 2.00 2.00 2.00 2.00 11/02/19 11/02/19 11/02/19 11/02/19 07:00 07:00 07:16 07:24 Temp 36.8 Pulse 85 83 Resp 30 B/P (MAP) 115/83 (94) Pulse Ox 99 96 O2 Delivery Nasal Cannula Nasal Cannula O2 Flow Rate 2.00 2.00 11/02/19 11/02/19 11/02/19 11/02/19 08:00 08:00 09:00 10:00 Pulse 95 91 82 Resp 33 36 35 B/P (MAP) 131/124 (126) 119/100 (106) 112/99 (103) Pulse Ox 98 98 97 94 O2 Delivery Nasal Cannula Nasal Cannula Nasal Cannula Nasal Cannula O2 Flow Rate 2.00 2.00 2.00 2.00 11/02/19 11/02/19 11/02/19 11/02/19 10:32 11:00 11:14 11:30 Temp 36.5 Pulse 101 Resp 44 B/P (MAP) 118/93 (101) Pulse Ox 97 98 98 O2 Delivery Nasal Cannula Nasal Cannula Nasal Cannula O2 Flow Rate 1.00 2.00 2.00 11/02/19 11/02/19 11/02/19 11/02/19 12:00 13:00 13:00 14:00 Pulse 96 98 97 98 Resp 32 21 30 B/P (MAP) 108/83 (91) 126/92 (103) 119/96 (104) Pulse Ox 90 89 96 O2 Delivery Nasal Cannula Nasal Cannula Nasal Cannula O2 Flow Rate 2.00 2.00 2.00 11/02/19 11/02/19 14:53 15:00 Pulse 82 Resp 39 B/P (MAP) 132/103 (113) Pulse Ox 94 94 O2 Delivery Nasal Cannula Nasal Cannula O2 Flow Rate 1.00 2.00 11/02/19 00:00 Intake Total 700 ml Output Total 250 ml Balance 450 ml Constitutional: appears stated age, apparent distress Respiratory: accessory muscle use, chest is bilaterally symmetric, other (decreased air entry bilaterally) Cardiovascular: irregularly irregular, tachycardia, S1 and S2 Gastrointestional: soft, audible bowel sounds; No spleenomegaly Extremities: normal range of motion, non-tender, normal inspection; No clubb ing, No cyanosis; no lower extremity edema bilateral; No significant edema Neurologic/Psychiatric: no motor/sensory deficits, alert, normal mood/affect, oriented x 3, power is 5/5 both on sides Skin: normal color, warm/dry; No rash, No ulcerations Results/Procedures: Labs Laboratory Tests 11/01/19 20:46: Glucometer 182H 11/02/19 03:37: White Blood Count 11.0, Red Blood Count 5.02, Hemoglobin 14.8, Hematocrit 46, Mean Corpuscular Volume 91, Mean Corpuscular Hemoglobin 30, Mean Corpuscular Hemoglobin Concent 33, Red Cell Distribution Width 13.6, Platelet Count 374, Mean Platelet Volume 11.0H, Neutrophils (%) (Auto) 82H, Lymphocytes (%) (Auto) 11L, Monocytes (%) (Auto) 7, Eosinophils (%) (Auto) 1, Basophils (%) (Auto) 0, Neutrophils # (Auto) 9.0H, Lymphocytes # (Auto) 1.2, Monocytes # (Auto) 0.7, Eosinophils # (Auto) 0.1, Basophils # (Auto) 0.0, Sodium Level 139, Potassium Level 3.6, Chloride Level 107, Carbon Dioxide Level 17L, Anion Gap 15H, Blood Urea Nitrogen 17, Creatinine 0.86, Estimat Glomerular Filtration Rate > 60, BUN/Creatinine Ratio 20, Glucose Level 169H, Calcium Level 8.7, Corrected Calcium 9.5, Phosphorus Level 3.8, Magnesium Level 1.9, Total Bilirubin 1.8H, Aspartate Amino Transf (AST/SGOT) 39H, Alanine Aminotransferase (ALT/SGPT) 32, Alkaline Phosphatase 82, Total Protein 6.4, Albumin 3.0L, Triglycerides Level 79, Cholesterol Level 109, LDL Cholesterol Direct 94, VLDL Cholesterol 16, HDL Cholesterol 17L 11/02/19 11:31: Glucometer 166H 11/02/19 15:29: Glucometer 146H Microbiology 11/01/19 Influenza Types A,B Antigen (JENNIFER) - Final, Complete A/P: Assessment/Dx: Bilateral PE, Severe right-sided pneumonia, Non-STEMI, Atrial fibrillation with rapid ventricular rate, Severe cardiomyopathy Plan: Bilateral PE, start PE dose enoxaparin. Plan to change to oral anticoagulation in the next 24 hours. Positive DVT. Severe right-sided pneumonia, broad-spectrum antibiotics. Defer to the primary team. Non-STEMI, could be type II myocardial infarction secondary to severe systemic illness including bilateral PE and severe right-sided pneumonia. Atrial fibrillation with rapid ventricular rate, anticoagulation and rate control. IV amiodarone as well. Unlikely to convert till resolution of severe systemic illness. Change Cardizem to Lopressor. Severe cardiomyopathy, new onset. Will require coronary angiography when stable. We'll start treating for severe acute congestive heart failure and cardiomyopathy with IV Lasix. Start Entresto and Lopressor. LifeVest for primary prevention of sudden cardiac . Critically ill patient with numerous pulmonary and cardiac active medical issues as above. Thank you for your consultation. Please call me if you have any questions. Bruce Fine MD, FACP, FACC, FSCAI, FHRS, CCDS Interventional Cardiology Cardiac Electrophysiology Vascular Medicine and Endovascular Interventions Focused Exam Lactate Level 11/01/19 14:50: Lactic Acid Level 1.94 Vincent FINE MD Nov 02, 2019 15:47
[2019-11-02] MEDS: FUROSEMIDE 40 MG/4 ML INJ (LASIX) IVP SCH (17:00)
[2019-11-03] VITALS (16 sets, daily range): BP systolic 100–169; BP diastolic 68–102
[2019-11-03] MEDS: RT-ALBUTEROL/IPRATROPIUM 3 ML (DUONEB) VIAL INH SCH ×6 (01:35→22:22)
[2019-11-03 03:53] LABS: BUN/CREATININE RATIO 16; CALCIUM 8.3 MG/DL (8.5-10.1); CARBON DIOXIDE 22 MMOL/L (21-32); CHLORIDE 105 MMOL/L (98-107); CREATININE SERUM 0.82 MG/DL (0.60-1.30); GFR ESTIMATED > 60; GLUCOSE 123 MG/DL (70-105); MAGNESIUM 1.5 MG/DL (1.6-2.4); PHOSPHORUS 3.3 MG/DL (2.3-4.7); POTASSIUM 3.1 MMOL/L (3.6-5.0); SODIUM 140 MMOL/L (135-145)
[2019-11-03] MEDS: POTASSIUM CL 10MEQ/50ML IVPB 50 ML IV SCH ×5 (04:53→13:27)
[2019-11-03] MEDS: MAGNESIUM 1 GM/100 ML IVPB 100 ML IV SCH ×3 (04:54→06:53)
[2019-11-03] MEDS: inSUlin ASPART (NovoLOG) 1 UNIT/0.01 ML (CHARGE PER UNIT) SC SCH ×4 (04:55→20:35)
[2019-11-03] MEDS: KCL 20 MEQ TAB (K-DUR) PO SCH (04:55)
[2019-11-03] MEDS: PIPERACILLIN/TAZO 4.5 GM/NS 100 ML IV SCH ×6 (05:36→20:46)
[2019-11-03] MEDS: FUROSEMIDE 40 MG/4 ML INJ (LASIX) IVP SCH ×2 (05:40→17:08)
[2019-11-03] MEDS: ENOXAPARIN 100 MG/1 ML (LOVENOX) SYR SC SCH (05:40)
--- NOTE | 2019-11-03 06:55 | Pulmonary Consultation ---
History of Present Illness History of Present Illness Date of Admission Allergies and Home Medications Allergies Coded Allergies: No Known Drug Allergies (Unverified , 11/01/19) Home Medications Aspirin 325 Mg Tablet.dr, 325 MG PO DAILY PRN for PAIN-MILD (1-4), (Reported) Cyanocobalamin (Vitamin B-12) 1,000 Mcg Tablet, 1,000 MCG PO DAILY, (Reported) Ibuprofen 200 Mg Tablet, 200 MG PO Q6H PRN for PAIN-MILD (1-4), (Reported) Multivits-Minerals/FA/Lycopene 1 Each Tablet, 1 TAB PO DAILY, (Reported) Vitamin E Acetate 400 Unit Capsule, 400 UNIT PO DAILY, (Reported) Past Qipeamq-Dfvzuq-Gvephk Hx Past Med/Social Hx: Reviewed Nursing Past Med/Soc Hx, Reviewed and Corrections made Patient Social History Alcohol Use: Rarely Uses Recreational Drug Use: No Smoking Status: Never a Smoker 2nd Hand Smoke Exposure: No Recent Foreign Travel: No Contact w/Someone Who Travel: No Recent Infectious Disease Expo: No Recent Hopitalizations: No Immunizations Up To Date Date of Influenza Vaccine: Nov 16, 1986 Seasonal Allergies Seasonal Allergies: No Past Medical History Surgeries: Yes (resection of melanoma right lower leg) Respiratory: Yes (SOB past 2 months, no medical diagnosis before now) Cardiac: Yes Hypertension Neurological: No Genitourinary: No Gastrointestinal: No Musculoskeletal: No Endocrine: No HEENT: No Loss of Vision: Denies Hearing Impairment: Denies Cancer: Yes Melanoma Did You Recieve Any Treatments: Yes What Type of Treatment Did You: Surgical Intervention Psychosocial: No Integumentary: Yes (melenoma, right leg) Blood Disorders: No Family Medical History Hypertension (Father) Sepsis Event Evaluation Height, Weight, BMI Height: '" Weight: lbs. oz. kg; 34.00 BMI Method: Exam Exam Vital Signs Date Time Temp Pulse Resp B/P (MAP) Pulse Ox O2 Delivery O2 Flow Rate FiO2 11/03/19 06:00 98 24 123/96 (105) 97 Nasal Cannula 2.00 11/03/19 05:00 99 20 127/102 (110) 95 Nasal Cannula 2.00 11/03/19 04:00 88 21 123/93 (103) 94 Nasal Cannula 2.00 11/03/19 04:00 97 Nasal Cannula 2.00 11/03/19 03:00 85 18 121/93 (102) 95 Nasal Cannula 2.00 11/03/19 02:00 84 28 117/81 (93) 90 Nasal Cannula 2.00 11/03/19 01:35 94 Nasal Cannula 1.00 11/03/19 01:00 95 11/03/19 01:00 80 30 118/84 (95) 93 Nasal Cannula 2.00 11/03/19 00:00 89 25 117/97 (104) 96 Nasal Cannula 2.00 11/03/19 00:00 94 Nasal Cannula 2.00 11/02/19 23:00 92 18 129/101 (110) 95 Nasal Cannula 2.00 11/02/19 22:00 98 24 121/92 (102) 91 Nasal Cannula 2.00 11/02/19 21:38 95 Nasal Cannula 1.00 11/02/19 21:00 90 21 136/103 (114) 94 Nasal Cannula 2.00 11/02/19 20:00 Nasal Cannula 2.00 11/02/19 20:00 84 30 120/90 (100) 92 Nasal Cannula 2.00 11/02/19 19:00 99 21 132/111 (118) 98 Nasal Cannula 2.00 11/02/19 19:00 99 11/02/19 18:56 94 Nasal Cannula 1.00 11/02/19 18:00 87 40 115/82 (93) 94 Nasal Cannula 2.00 11/02/19 17:00 99 53 124/98 (107) 96 Nasal Cannula 2.00 11/02/19 16:00 92 35 113/95 (101) 97 Nasal Cannula 2.00 11/02/19 15:57 98 Nasal Cannula 2.00 11/02/19 15:30 36.2 11/02/19 15:00 82 39 132/103 (113) 94 Nasal Cannula 2.00 11/02/19 14:53 94 Nasal Cannula 1.00 11/02/19 14:00 98 30 119/96 (104) 96 Nasal Cannula 2.00 11/02/19 13:00 97 11/02/19 13:00 98 21 126/92 (103) 89 Nasal Cannula 2.00 11/02/19 12:00 96 32 108/83 (91) 90 Nasal Cannula 2.00 11/02/19 11:30 36.5 11/02/19 11:14 98 Nasal Cannula 2.00 11/02/19 11:00 101 44 118/93 (101) 98 Nasal Cannula 2.00 11/02/19 10:32 97 Nasal Cannula 1.00 11/02/19 10:00 82 35 112/99 (103) 94 Nasal Cannula 2.00 11/02/19 09:00 91 36 119/100 (106) 97 Nasal Cannula 2.00 11/02/19 08:00 95 33 131/124 (126) 98 Nasal Cannula 2.00 11/02/19 08:00 98 Nasal Cannula 2.00 11/02/19 07:24 96 Nasal Cannula 2.00 11/02/19 07:16 36.8 11/02/19 07:00 83 11/02/19 07:00 85 30 115/83 (94) 99 Nasal Cannula 2.00 I & O 11/03/19 07:00 Intake Total 2420 ml Output Total 4000 ml Balance -1580 ml Height & Weight Height: '" Weight: lbs. oz. kg; 34.00 BMI Method: General Appearance: WD/WN, Anxious, Chronically ill, Mild Distress HEENT: PERRL/EOMI, Moist Mucous Membranes Respiratory: No Respiratory Distress, Accessory Muscle Use, Crackles, Decreased Breath Sounds, Wheezing Cardiovascular: Regular Rate, Rhythm Capillary Refill: Less Than 3 Seconds Peripheral Pulses: 2+ Dorsalis Pedis (R), 2+ Left Dors-Pedis (L), 2+ Radial Pulses (R), 2+ Radial Pulses (L) Gastrointestinal: normal bowel sounds, non tender, soft Extremity: No Calf Tenderness, Pedal Edema Neurologic/Psychiatric: Alert, Oriented x3, No Motor/Sensory Deficits, Normal Mood/Affect Skin: Normal Color, Warm/Dry Results Lab Laboratory Tests 11/01/19 12:08 11/02/19 03:37 11/03/19 03:13 Assessment/Plan Assessment/Plan Acute bilateral PE with right pleural effusion -I agree with holding off on thoracentesis at this time -Continue to monitor pleural effusion -Continue anticoagulation -Currently on Lovenox - consider switching to PO anticoagulation Cardiomyopathy with EF of 20% -Cardiology following LL Ext DVT New onset Afib -- now controlled -Cardizem gtt - switched to PO yesterday Hx of melanoma 1995 HTN HENRIETTA RYAN DO Nov 03, 2019 06:55
--- NOTE | 2019-11-03 07:01 | Progress Note - Surgery ---
Subjective Date Seen by a Provider: Nov 03, 2019 Time Seen by a Provider: 05:58 (I saw pt at 09:28) Subjective/Events-last exam Patient examined this morning in bed. He states he continues to feel better. His breathing feels like it has improved a great deal, and he states he is able to breathe in enough force to blow his nose. Oxygen saturations range from 92% to 97% while I am speaking with him. He is on 2L via nasal cannula. Review of Systems General: No Chills, No Night Sweats HEENT: No Visual Changes; Sinus Congestion Pulmonary: Dyspnea (improved from yesterday), Cough (improved from yesterday) Cardiovascular: Edema; No: Chest Pain Gastrointestinal: No: Nausea, Vomiting, Abdominal Pain, Diarrhea, Constipation Genitourinary: No Dysuria; Frequency; No Hematuria Focused Exam Lactate Level 11/01/19 14:50: Lactic Acid Level 1.94 Objective Exam Vital Signs Date Time Temp Pulse Resp B/P (MAP) Pulse Ox O2 Delivery O2 Flow Rate FiO2 11/03/19 06:00 98 24 123/96 (105) 97 Nasal Cannula 2.00 11/03/19 05:00 99 20 127/102 (110) 95 Nasal Cannula 2.00 11/03/19 04:00 88 21 123/93 (103) 94 Nasal Cannula 2.00 11/03/19 04:00 97 Nasal Cannula 2.00 11/03/19 03:00 85 18 121/93 (102) 95 Nasal Cannula 2.00 11/03/19 02:00 84 28 117/81 (93) 90 Nasal Cannula 2.00 11/03/19 01:35 94 Nasal Cannula 1.00 11/03/19 01:00 95 11/03/19 01:00 80 30 118/84 (95) 93 Nasal Cannula 2.00 11/03/19 00:00 89 25 117/97 (104) 96 Nasal Cannula 2.00 11/03/19 00:00 94 Nasal Cannula 2.00 11/02/19 23:00 92 18 129/101 (110) 95 Nasal Cannula 2.00 11/02/19 22:00 98 24 121/92 (102) 91 Nasal Cannula 2.00 11/02/19 21:38 95 Nasal Cannula 1.00 11/02/19 21:00 90 21 136/103 (114) 94 Nasal Cannula 2.00 11/02/19 20:00 Nasal Cannula 2.00 11/02/19 20:00 84 30 120/90 (100) 92 Nasal Cannula 2.00 11/02/19 19:00 99 21 132/111 (118) 98 Nasal Cannula 2.00 11/02/19 19:00 99 11/02/19 18:56 94 Nasal Cannula 1.00 11/02/19 18:00 87 40 115/82 (93) 94 Nasal Cannula 2.00 11/02/19 17:00 99 53 124/98 (107) 96 Nasal Cannula 2.00 11/02/19 16:00 92 35 113/95 (101) 97 Nasal Cannula 2.00 11/02/19 15:57 98 Nasal Cannula 2.00 11/02/19 15:30 36.2 11/02/19 15:00 82 39 132/103 (113) 94 Nasal Cannula 2.00 11/02/19 14:53 94 Nasal Cannula 1.00 11/02/19 14:00 98 30 119/96 (104) 96 Nasal Cannula 2.00 11/02/19 13:00 97 11/02/19 13:00 98 21 126/92 (103) 89 Nasal Cannula 2.00 11/02/19 12:00 96 32 108/83 (91) 90 Nasal Cannula 2.00 11/02/19 11:30 36.5 11/02/19 11:14 98 Nasal Cannula 2.00 11/02/19 11:00 101 44 118/93 (101) 98 Nasal Cannula 2.00 11/02/19 10:32 97 Nasal Cannula 1.00 11/02/19 10:00 82 35 112/99 (103) 94 Nasal Cannula 2.00 11/02/19 09:00 91 36 119/100 (106) 97 Nasal Cannula 2.00 11/02/19 08:00 95 33 131/124 (126) 98 Nasal Cannula 2.00 11/02/19 08:00 98 Nasal Cannula 2.00 11/02/19 07:24 96 Nasal Cannula 2.00 11/02/19 07:16 36.8 11/02/19 07:00 83 11/02/19 07:00 85 30 115/83 (94) 99 Nasal Cannula 2.00 I & O 11/03/19 07:00 Intake Total 2420 ml Output Total 4000 ml Balance -1580 ml Capillary Refill : Less Than 3 Seconds General Appearance: WD/WN HEENT: PERRL/EOMI, Pharynx Normal, Moist Mucous Membranes; No Scleral Icterus (L), No Scleral Icterus (R) Neck: Non Tender, Supple Respiratory: No Respiratory Distress, Crackles (right lower lung), Decreased Breath Sounds (right lower and middle lung) Cardiovascular: No Murmur, Irregularly Irregular Peripheral Pulses: 2+ Dorsalis Pedis (R), 2+ Left Dors-Pedis (L), 2+ Radial Pulses (R), 2+ Radial Pulses (L) Gastrointestinal: normal bowel sounds, non tender, soft Extremity: No Calf Tenderness, Pedal Edema Neurologic/Psychiatric: Alert, Oriented x3, No Motor/Sensory Deficits, Normal Mood/Affect Skin: Normal Color, Warm/Dry Results Lab Laboratory Tests 11/02/19 11:31: Glucometer 166H 11/02/19 15:29: Glucometer 146H 11/02/19 20:42: Glucometer 124H 11/03/19 03:13: Sodium Level 140, Potassium Level 3.1L, Chloride Level 105, Carbon Dioxide Level 22, Anion Gap 13, Blood Urea Nitrogen 13, Creatinine 0.82, Estimat Glomerular Filtration Rate > 60, BUN/Creatinine Ratio 16, Glucose Level 123H, Calcium Level 8.3L, Phosphorus Level 3.3, Magnesium Level 1.5L Microbiology 11/01/19 MRSA Screen - Final, Complete MRSA not isolated 11/01/19 Blood Culture - Preliminary, Resulted No growth Assessment/Plan Assessment/Plan Assessment/Plan Right Pleural Effusion Right Middle and Lower lobe Pneumonia B/L PE AFib with RVR SOB (because of all the above) Pt has a moderate right pleural effusion seen on chest CT; it is difficult to determine how much this is contributing to his SOB. He is on Lovenox because of the PE and Afib; which would be a relative contraindication to Thoracentesis. The Lovenox can be stopped if it becomes apparent that Thoracentesis would help his condition. Pt is on IV ABX or the pneumonia, he needs pulmonary toilet and breathing treatments per RT. At this point his breathing is fine, would hold off on Thoracentesis. Verification and Attestation of Medical Student E/M Service A medical student performed and documented this service in my presence. I reviewed and verified all information documented by the medical student and made modifications to such information, when appropriate. I personally performed the physical exam and medical decision making. Rocky Jenkins, Nov 03, 2019,19:56 Clinical Quality Measures DVT/VTE Risk/Contraindication: Risk Factor Score Per Nursin RFS Level Per Nursing on Admit: 4+=Very High ARBEN SPRAGUE,MED STUDENT Nov 03, 2019 07:01 ROCKY JENKINS DO Nov 03, 2019 19:56
--- NOTE | 2019-11-03 07:31 | Diagnostic Imaging Report ---
INDICATION: Dyspnea. COMPARISON: 11/02/2019 FINDINGS: Single frontal radiograph view of the chest was obtained and demonstrates persistent severe cardiomegaly. Pulmonary vasculature however is within normal limits. Lungs continue show large right-sided pleural effusion with associated right basilar airspace disease. Left lung is relatively clear. Overall, aeration is stable. There is no pneumothorax. Osseous structures are unchanged. IMPRESSION: 1. Stable exam of the chest showing severe cardiomegaly with moderate right effusion and associated right basilar atelectasis and/or infiltrate. Dictated by: Dictated on workstation # [id number]
[2019-11-03] MEDS: SACUBITRIL/VALSARTAN 24/26 MG (ENTRESTO) TABLET PO SCH ×2 (08:44→20:46)
[2019-11-03] MEDS: PANTOPRAZOLE 40 MG (PROTONIX) VIAL IV SCH (08:44)
[2019-11-03] MEDS ORDERED: KCL 20 MEQ TAB (K-DUR) PO ONE (09:00)
--- NOTE | 2019-11-03 09:39 | NUR ---
RT WAS WITH OTHER ICU PATIENTS AND BY THE TIME RT GOT TO PATIENTS ROOM IT WAS TIME FOR 1000; SO 0600 SVN BT WAS NON-ADMINISTERED
--- NOTE | 2019-11-03 11:02 | NUR ---
Pt is Confucianism. Anointed Today by Fr Abarca. provided Communion.
--- NOTE | 2019-11-03 12:18 | Occupational Therapy Eval ---
OT Evaluation-General/PLF Medical Diagnosis Admission Date Nov 01, 2019 at 13:40 Medical Diagnosis: Right pleural effusion/pneumonia Onset Date: Nov 01, 2019 Therapy Diagnosis Therapy Diagnosis: Weakness Precautions Precautions/Isolations: Fall Prevention, Standard Precautions Safety Interventions: None Weight Bear Status Weight Bearing Restriction: Weight Bearing/Tolerated Referral Physician: Dr. Hightower Referral Reason: Activity Tolerance, Self Care, Evaluation/Treatment, Strengthening/ROM Medical History Additional Medical History Resection of melanoma of right LE Current History Pt. states that he has been feeling "not well" for several months now. Went to walk in clinic and it was found that he had pneumonia, and was in A-fib. Reviewed History: Yes Social History Home: Single Level Current Living Status: Alone Entry Into Home: Stairs With Railing Steps Into Home: 3 ADL-Prior Level of Function SCALE: Activities may be completed with or without assistive devices. 5-Yzosfebxxr-jatcsdd completes the activity by him/herself with no assistance from a helper. 5-Set-up or Clean-up Assistance-helper sets up or cleans up; patient completes activity. [place] assists only prior to or following the activity. 4-Supervision or Touching Assistance-helper provides verbal cues and/or touching/steadying and/or contact guard assistance as patient completes activity. Assistance may be provided throughout the activity or intermittently. 3-Partial/Moderate Assistance-helper does LESS THAN HALF the effort. [place] lifts, holds or supports trunk or limbs, but provides less than half the effort. 2-Substantial/Maximal Assistance-helper does MORE THAN HALF the effort. [place] lifts or holds trunk or limbs and provides more than half the effort. 5-Vcsswftcv-fmrjbq does ALL the effort. Patient does none of the effort to complete the activity. Or, the assistance of 2 or more helpers is required for the patient to complete the activity. If activity was not attempted, code reason: 7-Patient Refused. 9-Not Applicable-not attempted and the patient did not perform the activity before the current illness, exacerbation or injury. 10-Not Attempted due to Environmental Limitations-(lack of equipment, weather restraints, etc.). 88-Not Attempted due to Medical Conditions or Safety Concerns. ADL PLOF Comments Pt. states that previous to this hospitalization, he was independent with all ADL skills. Does not have a car, so has friends that take him to grocery shop, and to work. 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 Does not use any equipment for mobility or oxygen. Self Care: Independent Functional Cognition: Independent OT Current Status Subjective No pain reported. Appearance Pt. in bed in ICU unit. Multiple lines and monitors. Agrees to work with therapy. Mental Status/Objective Patient Orientation: Person, Place, Time, Situation Attachments: IV, Telemetry Current Upper Extremity ROM WFL ADL-Treatment On/Off Footwear (QC): 6 (Slipper socks.) Pt. participated in partial co-treatment with PT/OT due to fatigue and line placement. OT addressed UE movement/placement with transfers, as well as ADL skills. PT addressed mobility. Pt. transferred supine-sit with SBA, and assist for line management. Pt. not wearing oxygen, and sats monitored to stay at approximately 93%. Pt. sat on side of bed and took deep breaths. Pt. stood with SBA and no equipment. Able to stand with good balance approximately 5 minutes. Due to multiple lines and monitors, pt. not able to ambulate at this time. Transferred to chair and all needs met. Education OT Patient Education: Correct positioning, Modified ADL techniques, Progress toward Goal/Update tx plan, Purpose of tx/functional activities, Reviewed p recautions, Rehab process, Transfer techniques Teaching Recipient: Patient Teaching Methods: Demonstration, Discussion Response to Teaching: Verbalize Understanding, Return Demonstration OT Desktop Publishing Associate Goals Desktop Publishing Associate Goals Time Frame: Nov 10, 2019 Eating (QC): 6 Oral Hygiene (QC): 6 Toileting Hygiene (QC): 6 Shower/Bathe Self (QC): 6 Upper Body Dressing (QC): 6 Lower Body Dressing (QC): 6 On/Off Footwear (QC): 6 Additional Goals: 1-Demonstrate ADL Tasks, 2-Verbalize Understanding, 3- ImproveStrength/Jagruti 1=Demonstrate adherence to instructed precautions during ADL tasks. 2=Patient will verbalize/demonstrate understanding of assistive devices/modifications for ADL. 3=Patient will improve strength/tolerance for activity to enable patient to perform ADL's. OT Education/Plan Problem List/Assessment Assessment: Decreased Activ Tolerance, Impaired I ADL's, Impaired Self-Care Skills Due to weakness and SOA, pt. would benefit from skilled OT to continue addressing strength and independence for daily tasks. Discharge Recommendations Plan/Recommendations: Continue POC Therapy Discharge Recommendati: Home & Family Treatment Plan/Plan of Care Treatment,Training & Education: Yes Patient would benefit from OT for education, treatment and training to promote independence in ADL's, mobility, safety and/or upper extremity function for ADL's. Plan of Care: ADL Retraining, Functional Mobility, UE Funct Exercise/Act Treatment Duration: Nov 10, 2019 Frequency: 5 times per week Estimated Hrs Per Day: .25 hour per day Agreement: Yes Rehab Potential: Good Time/GCodes Start Time: 11:15 Stop Time: 11:35 Total Time Billed (hr/min): 20 Billed Treatment Time 1, TY NORRIS OT Nov 03, 2019 12:18
--- NOTE | 2019-11-03 12:20 | NUR ---
THIS NURSE RECEIVED VERBALS ORDERS FROM DR MOSELEY. WRITTEN DOWN AND REPEATED BACK.
--- NOTE | 2019-11-03 13:27 | Physical Therapy Evaluation ---
PT Evaluation-General Medical Diagnosis Admission Date Nov 01, 2019 at 13:40 Medical Diagnosis: Right pleural effusion/pneumonia Onset Date: Nov 01, 2019 Therapy Diagnosis Therapy Diagnosis: abn gait Precautions Precautions/Isolations: Fall Prevention, Standard Precautions Referral Physician: Dr. Hightower Reason for Referral: Evaluation/Treatment Medical History Pertinent Medical History: Atrial Fib, HTN Additional Medical History CHF Current History admitted with B PE Reviewed History: Yes Social History Home: Single Level Current Living Status: Alone Entry Into Home: Stairs With Railing PT Steps Into Home: 3 Prior Prior Level of Function SCALE: Activities may be completed with or without assistive devices. 7-Mghytlokdm-yhvzjxr completes the activity by him/herself with no assistance from a helper. 5-Set-up or Clean-up Assistance-helper sets up or cleans up; patient completes activity. [place] assists only prior to or following the activity. 4-Supervision or Touching Assistance-helper provides verbal cues and/or touching/steadying and/or contact guard assistance as patient completes activity. Assistance may be provided throughout the activity or intermittently. 3-Partial/Moderate Assistance-helper does LESS THAN HALF the effort. [place] lifts, holds or supports trunk or limbs, but provides less than half the effort. 2-Substantial/Maximal Assistance-helper does MORE THAN HALF the effort. [place] lifts or holds trunk or limbs and provides more than half the effort. 9-Eoatguolp-qiflcf does ALL the effort. Patient does none of the effort to complete the activity. Or, the assistance of 2 or more helpers is required for the patient to complete the activity. If activity was not attempted, code reason: 7-Patient Refused. 9-Not Applicable-not attempted and the patient did not perform the activity before the current illness, exacerbation or injury. 10-Not Attempted due to Environmental Limitations-(lack of equipment, weather restraints, etc.). 88-Not Attempted due to Medical Conditions or Safety Concerns. 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 No complaints of pain, Pt/Family Goals His goal is to begin moving more Objective Patient Orientation: Person, Place, Time, Situation Attachments: IV mulitple monitors ROM/Strength ROM Lower Extremities WNL Strength Lower Extremities WFL Integumentary/Posture Integumentary intact Bowel Incontinence: No Bladder Incontinence: No Posture normal and symmetrical Neuromuscular (Tone, Coordination, Reflexes) intact and functional Sensory Vision: Functional Hearing: Functional Hand Dominance: Right Sensation Right Lower Extremit: Intact Sensation Left Lower Extremity: Intact Transfers Lying to Sitting/Side of Bed(Q: 5 Sit to Stand (QC): 4 (SBA for safety; 1 LOB with initial standing with ability to self recover. ) Chair/Hnw-pv-Tjlgc Xfer(QC): 4 (SBA without AD. ) Pt transferred to the chair with SBA. Assist only to manage attachments. Gait Comments/Gait Description Pt attached to many monitors that limits gait this visit. However, he is able to stand, take a few steps to the chair and sit all with SBA. Balance Sitting Static: Good Sitting Dynamic: Good Standing Static: Good Standing Dynamic: Good Treatment Up to chair post treatmnent with needs met. Assessment/Needs Pt presents with acute hospital stay, mobility is limited due to attachments. He will benefit from short term PT treatment to progress gait to longer distances without assist. Rehab Potential: Good PT Refrigeration Supervisor Goals Refrigeration Supervisor Goals PT Nursing Home Goals Time Frame: Nov 11, 2019 Sit to Lying (QC): 6 Lying-Sitting on Side/Bed(QC): 6 Sit to Stand (QC): 6 Walk 150 ft (QC): 6 PT Plan Problem List Problem List: Activity Tolerance, Functional Strength, Safety, Balance, Gait, Transfer Treatment/Plan Treatment Plan: Continue Plan of Care Treatment Plan: Bed Mobility, Education, Functional Activity Jagruti, Functional Strength, Gait, Safety, Therapeutic Exercise, Transfers Treatment Duration: Nov 11, 2019 Frequency: 6 times per week Estimated Hrs Per Day: .25 hour per day Safety Risks/Education Patient Education: Safety Issues Teaching Recipient: Patient Teaching Methods: Discussion Response to Teaching: Verbalize Understanding Time/GCodes Time In: 1125 Time Out: 1140 Total Billed Treatment Time: 15 Total Billed Treatment visit EVM 15 KAE PENN PT Nov 03, 2019 13:27
--- NOTE | 2019-11-03 13:34 | Progress Note - Hospitalist ---
LEDY SINCLAIR,MED STUDENT 11/03/19 1334: Subjective HPI/CC On Admission Date Seen by Provider: Nov 03, 2019 Time Seen by Provider: 07:51 Chief complaint: Shortness of breath with fatigue History of present illness: This is a 59-year-old male who has not seen a doctor for 5 years but saw [facility] when he was last seen who reports he's been in excellent health until Halloween of this year when he began having a cough and shortness of breath and wheezing and severe fatigue. He denied any significant other issues such as weight loss or weight gain but he does report lower extremity edema. He went to the ER was found to have hypoxia cytosis anasarca pleural effusion with bilateral pulmonary emboli and infiltrate with new onset atrial fibrillation with rapid ventricular response with elevated troponin and BNP so he was placed on Lovenox administered to the ICU for close monitoring with cardiology and general surgery consultation. He reports that he had a right lower extremity melanoma at 37 years old status post resection at [facility] but has had no other surgeries or trauma to the left leg where the ultrasound confirmed the acute left lower extremity DVT. 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 He lives alone. Subjective/Events-last exam Pt states his SOB is markedly improved. Denies leg pain, fever, chills, headache, chest pain, abdominal pain. Denies syncope/lightheadedness but is on bed restriction d/t DVT. Accompanied by brother and friend in room. No complaints at this time. States he wishes he didnt let his health get away from him but cannot quantify what precipitated his decline. Focused Exam Lactate Level 11/01/19 14:50: Lactic Acid Level 1.94 Objective Exam Vital Signs Vital Signs Date Time Temp Pulse Resp B/P (MAP) Pulse Ox O2 Delivery O2 Flow Rate FiO2 11/03/19 13:00 92 35 91 Nasal Cannula 2.00 11/03/19 12:00 36.0 Capillary Refill : Less Than 3 Seconds General Appearance: No Apparent Distress, WD/WN HEENT: Pharynx Normal, Moist Mucous Membranes Neck: Non Tender, Supple Respiratory: Chest Non Tender, No Accessory Muscle Use, No Respiratory Distress, Crackles, Decreased Breath Sounds Cardiovascular: No Gallop, No Murmur, Irregularly Irregular Gastrointestinal: Non Tender, Soft Extremity: No Calf Tenderness, Pedal Edema (+4 pitting), Swelling Neurologic/Psychiatric: Alert, Oriented x3 Skin: Normal Color, Warm/Dry Results/Procedures Lab Laboratory Tests 11/03/19 03:13 Patient resulted labs reviewed. Assessment/Plan Assessment and Plan Assess & Plan/Chief Complaint Assessment: Bilateral pulmonary emboli Acute cor pulmonale Atrial fibrillation Hx melanoma 1995 HTN Right sided PNA, pleural effusion Hypokalemia elevated BNP Metabolic acidosis Plan: Lovenox Cont. IV Abx Cardio adding enoxaparin, changing cardizem drip to lopressor Surg/pulm rec. holding thoracentesis while on anticoag. Pt SOB has improved markedly so this is reasonable plan Oncology consulted due to precipitous manifestation of hypercoagulable state Clinical Quality Measures DVT/VTE Risk/Contraindication: Risk Factor Score Per Nursin RFS Level Per Nursing on Admit: 4+=Very High JUSTYNA MENDOZA DO 11/03/19 1617: Subjective Subjective/Events-last exam Ejection fraction 20% on echo. Transfer into cardiac stepdown unit today. Edema is still present. Holding thoracentesis right now since he is on therapeutic Lovenox. BNP 608. ABG reviewed. Lopressor maintained. On oral anticoagulation and oral Amiodarone now. Review of Systems Pulmonary: Dyspnea Objective Exam General Appearance: No Apparent Distress, WD/WN, Anxious, Chronically ill Respiratory: Chest Non Tender, No Accessory Muscle Use, No Respiratory Distress, Crackles, Decreased Breath Sounds, Wheezing Cardiovascular: Regular Rate, Rhythm, No Edema, No Gallop, No JVD, No Murmur, Normal Peripheral Pulses, Tachycardia Assessment/Plan Assessment and Plan Assess & Plan/Chief Complaint Plan: Transfer to Cardiac step-down IV Lasix Amiodarone Anticoagulation Dr. Winston consult Diagnosis/Problems Diagnosis/Problems (1) Bilateral pulmonary embolism (2) Acute CHF Status: Acute Qualifiers: Qualified Codes: I50.9 - Heart failure, unspecified (3) Atrial fibrillation with rapid ventricular response Status: Acute (4) Acute cor pulmonale Status: Acute (5) Anxiety (6) Abnormal albumin (7) Elevated troponin (8) History of melanoma (9) Left leg DVT (10) Elevated brain natriuretic peptide (BNP) level Supervisory-Addendum Brief Verification & Attestation Participated in pt care: history, MDM, physical Personally performed: exam, history, MDM, supervision of care Care discussed with: Medical Student Procedures: n/a Results interpretation: Verified all documentation Verification and Attestation of Medical Student E/M Service A medical student performed and documented this service in my presence. I reviewed and verified all information documented by the medical student and made modifications to such information, when appropriate. I personally performed the physical exam and medical decision making. Justyna Mendoza, Nov 03, 2019,20:43 LEDY SINCLAIR,MED STUDENT Nov 03, 2019 13:34 JUSTYNA MENDOZA DO Nov 03, 2019 16:17
--- NOTE | 2019-11-03 15:27 | NUR ---
JANIE/KACEY visited with patient for the need of a Life Vest. 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 JANIE/KACEY explained to the patient that a copy of his [place]elos[place] stub needed to be obtained by the Life Vest company to qualify for susan. JANIE/KACEY contacted Jojo from Financial services and she stated the patient did not want to apply for Medicaid but a partial application had at least been started. JANIE/KACEY will continue to follow to help set up the Life Vest for the patient. No other needs at this time.
--- NOTE | 2019-11-03 16:48 | Cardiology Progress Note ---
Cardiology SOAP Progress Note Subjective: Significantly improved shortness of breath. Objective: I&O/Vital Signs 11/03/19 11/03/19 11/03/19 11/03/19 05:00 06:00 07:00 07:00 Pulse 99 98 96 89 Resp 20 24 14 B/P (MAP) 127/102 (110) 123/96 (105) 121/91 (101) Pulse Ox 95 97 92 O2 Delivery Nasal Cannula Nasal Cannula Nasal Cannula O2 Flow Rate 2.00 2.00 2.00 11/03/19 11/03/19 11/03/19 11/03/19 08:00 08:00 08:00 09:00 Temp 36.0 Pulse 98 98 Resp 35 24 B/P (MAP) 136/100 (112) 120/90 (100) Pulse Ox 94 93 93 O2 Delivery Nasal Cannula Room Air Nasal Cannula O2 Flow Rate 2.00 2.00 11/03/19 11/03/19 11/03/19 11/03/19 09:36 10:00 12:00 12:00 Pulse 116 112 Resp 31 39 B/P (MAP) 118/85 (96) 108/85 (93) Pulse Ox 94 93 94 94 O2 Delivery Nasal Cannula Nasal Cannula Nasal Cannula Room Air O2 Flow Rate 1.00 2.00 2.00 11/03/19 11/03/19 11/03/19 11/03/19 12:00 12:30 13:00 14:00 Temp 36.0 Pulse 109 92 103 Resp 35 39 B/P (MAP) 106/89 (95) Pulse Ox 91 92 O2 Delivery Nasal Cannula Nasal Cannula O2 Flow Rate 2.00 2.00 11/03/19 11/03/19 14:55 16:00 Temp 36.0 Pulse 60 Resp 21 B/P (MAP) 106/76 (86) Pulse Ox 94 97 O2 Delivery Room Air Room Air 11/03/19 00:00 Intake Total 1350 ml Output Total 3100 ml Balance -1750 ml Constitutional: appears stated age, AAO x 3 Respiratory: chest is bilaterally symmetric, other (decreased air entry bilaterally) Cardiovascular: irregularly irregular, tachycardia, S1 and S2 Gastrointestional: soft, audible bowel sounds; No spleenomegaly Extremities: normal range of motion, non-tender, normal inspection; No clubbing, No cyanosis; no lower extremity edema bilateral; No significant edema Neurologic/Psychiatric: no motor/sensory deficits, alert, normal mood/affect, oriented x 3, power is 5/5 both on sides Skin: normal color, warm/dry; No rash, No ulcerations Results/Procedures: Labs Laboratory Tests 11/02/19 20:42: Glucometer 124H 11/03/19 03:13: Sodium Level 140, Potassium Level 3.1L, Chloride Level 105, Carbon Dioxide Level 22, Anion Gap 13, Blood Urea Nitrogen 13, Creatinine 0.82, Estimat Glomerular Filtration Rate > 60, BUN/Creatinine Ratio 16, Glucose Level 123H, Calcium Level 8.3L, Phosphorus Level 3.3, Magnesium Level 1.5L 11/03/19 11:09: Glucometer 144H 11/03/19 15:36: Glucometer 139H 11/03/19 16:37: Microbiology 11/01/19 MRSA Screen - Final, Complete MRSA not isolated 11/01/19 Blood Culture - Preliminary, Resulted No growth A/P: Assessment/Dx: Bilateral PE, Severe right-sided pneumonia, Non-STEMI, Atrial fibrillation with rapid ventricular rate, Severe cardiomyopathy Plan: Bilateral PE, start PE dose enoxaparin. Plan to change to oral anticoagulation after re-angiography. Positive DVT. Severe right-sided pneumonia, broad-spectrum antibiotics. Defer to the primary team. Non-STEMI, could be type II myocardial infarction secondary to severe systemic illness including bilateral PE and severe right-sided pneumonia. Atrial fibrillation with rapid ventricular rate, anticoagulation and rate control. IV amiodarone as well. Unlikely to convert till resolution of severe systemic illness. Change Cardizem to Lopressor. Severe cardiomyopathy, new onset. Coronary angiography tomorrow. We'll start treating for severe acute congestive heart failure and cardiomyopathy with IV Lasix. On Entresto and Lopressor. LifeVest for primary prevention of sudden cardiac . Thank you for your consultation. Please call me if you have any questions. Bruce Fine MD, FACP, FACC, FSCAI, FHRS, CCDS Interventional Cardiology Cardiac Electrophysiology Vascular Medicine and Endovascular Interventions Focused Exam Lactate Level 11/01/19 14:50: Lactic Acid Level 1.94 Vincent FINE MD Nov 03, 2019 16:48
[2019-11-03 17:04] LABS: BUN/CREATININE RATIO 13; CALCIUM 8.3 MG/DL (8.5-10.1); CARBON DIOXIDE 27 MMOL/L (21-32); CHLORIDE 103 MMOL/L (98-107); CREATININE SERUM 1.03 MG/DL (0.60-1.30); GFR ESTIMATED > 60; GLUCOSE 112 MG/DL (70-105); MAGNESIUM 1.6 MG/DL (1.6-2.4); PHOSPHORUS 2.1 MG/DL (2.3-4.7); POTASSIUM 3.5 MMOL/L (3.6-5.0); SODIUM 142 MMOL/L (135-145)
--- NOTE | 2019-11-03 18:43 | Consultation ---
History of Present Illness History of Present Illness Patient Consulted On(sis/time) 11/03/19 18:38 Date Seen by Provider: Nov 03, 2019 Time Seen by Provider: 18:38 History of Present Illness Mr. Montesinos is a 59 yo male with h/o a resected right lower leg melanoma >20 years ago. He was admitted on 11/01/19 with DVT and bilateral PEs, an extensive right sided pneumonia, and a fib with RVR with symptoms of heart failure. He started to develop symptoms around the end of August, manifested as dizziness and shortness of breath, particularly with exertion. The symptoms gradually worsened over the last couple months until his friends told him to go the doctor for evaluation. He denied any fevers, chills or night sweats. He also denied any leg swelling or pain. He has no known history of clotting disorder or malignancy in his family. His parents are 91 and 89 with only hypertension and possibly some other unrelated illnesses. Allergies and Home Medications Allergies Coded Allergies: No Known Drug Allergies (Unverified , 11/01/19) Home Medications Aspirin 325 Mg Tablet.dr, 325 MG PO DAILY PRN for PAIN-MILD (1-4), (Reported) Cyanocobalamin (Vitamin B-12) 1,000 Mcg Tablet, 1,000 MCG PO DAILY, (Reported) Ibuprofen 200 Mg Tablet, 200 MG PO Q6H PRN for PAIN-MILD (1-4), (Reported) Multivits-Minerals/FA/Lycopene 1 Each Tablet, 1 TAB PO DAILY, (Reported) Vitamin E Acetate 400 Unit Capsule, 400 UNIT PO DAILY, (Reported) Patient Home Medication List Home Medication List Reviewed: Yes Past Zpnoycz-[id number]-Tvfipg Hx Past Med/Social Hx: Reviewed Nursing Past Med/Soc Hx, Reviewed and Corrections made Patient Social History Alcohol Use: Rarely Uses Recreational Drug Use: No Smoking Status: Never a Smoker 2nd Hand Smoke Exposure: No Recent Foreign Travel: No Contact w/Someone Who Travel: No Recent Infectious Disease Expo: No Recent Hopitalizations: No Immunizations Up To Date Date of Influenza Vaccine: Nov 16, 1986 Seasonal Allergies Seasonal Allergies: No Past Medical History Surgeries: Yes (resection of melanoma right lower leg) Respiratory: Yes (SOB past 2 months, no medical diagnosis before now) Cardiac: Yes Hypertension Neurological: No Genitourinary: No Gastrointestinal: No Musculoskeletal: No Endocrine: No HEENT: No Loss of Vision: Denies Hearing Impairment: Denies Cancer: Yes Melanoma Did You Recieve Any Treatments: Yes What Type of Treatment Did You: Surgical Intervention Psychosocial: No Integumentary: Yes (melenoma, right leg) Blood Disorders: No Family Medical History Hypertension (Father) Review of Systems-General Constitutional: no symptoms reported EENTM: no symptoms reported Respiratory: short of breath Cardiovascular: no symptoms reported Gastrointestinal: no symptoms reported Genitourinary: no symptoms reported Musculoskeletal: no symptoms reported Skin: no symptoms reported Psychiatric/Neurological: Other (dizziness) Physical Exam-General Problems Physical Exam Vital Signs Vital Signs - First Documented 11/01/19 11/01/19 11:57 14:00 Temp 37.2 Pulse 145 Resp 11 B/P (MAP) 130/112 (118) Pulse Ox 96 O2 Delivery Room Air O2 Flow Rate 2.00 Capillary Refill : Less Than 3 Seconds General Appearance: WD/WN, no apparent distress Eyes: Bilateral Eye Normal Inspection, Bilateral Eye EOMI HEENT: normal ENT inspection Neck: normal inspection Respiratory: chest non-tender, no respiratory distress, no accessory muscle use, decreased breath sounds (RLL), crackles (RLL) Cardiovascular: tachycardia, irregularly irregular Gastrointestinal: normal bowel sounds, non tender, soft Extremities: normal range of motion, non-tender, normal inspection Neurologic/Psychiatric: no motor/sensory deficits, alert, normal mood/affect, oriented x 3 Skin: normal color, warm/dry Lymphatic: no adenopathy Assessment/Plan Assessment/Plan Admission Diagnosis/Plan 59 yo male with remote h/o melanoma admitted with extensive bilateral PEs and pneumonia. Although there do not seem to be rigorous studies, some show that infection increases rate of VTE by twofold. Therefore, it is not unreasonable to believe that a patient who had pneumonia for over a month could develop extensive PEs from an undiscovered DVT. I would classify this event as a provoked event. In terms of other thrombophilic workup, classically involving inherited thrombophilias like Factor V Leiden and prothrombin gene mutation, they are usually unnecessary for a variety of reasons. A patient > 45 yo without a family history of hypercoagulability and with a first time provoked event has a fairly low pretest probability of testing positive. In addition, most inherited thrombophilias (e.g. Factor V Leiden, especially heterozygous) may predict initial episodes but rarely recurrent episodes of VTE. It is often reasonable to give a one time 3-month treatment of anticoagulation even in the presence of these inherited diseases. Therefore, there is often little benefit to ordering a complete hypercoagulable workup. Tests for thrombophilia that I may consider reasonable are: 1) Antiphospholipid antibody syndrome. Because it would change the type of anticoagulation recommended (warfarin) and because it take at least 3 months to diagnose. Aside from antibody testing, however, tests cannot be considered accurate in the setting of an acute clot on anticoagulation. 2) Age appropriate cancer screening (prostate and colon cancer and CT chest for smokers). 3) Workup for melanoma given his history. I have ordered lupus anticoagulant testing for the AM. For age appropriate cancer screening, that may be deferred to primary care outpatient. In regards to melanoma screening, when I addressed the matter, patient became extremely upset and insisted that thrombosis had nothing to do with his h/o melanoma. Despite explaining that malignancy increases risk for thrombosis, he did not wish to discuss further. I will defer to the inpatient primary team to decide whether or not to complete workup for recurrent melanoma (full body skin exam and completion CT abd/pelvis). After patient is discharged with anticoagulation (DOAC, LMWH, or warfarin), please set up an appointment to see me in clinic in 3 months. Thank you for allowing me to participate in the care of Mr. Montesinos. Clinical Quality Measures DVT/VTE Risk/Contraindication: Risk Factor Score Per Nursin RFS Level Per Nursing on Admit: 4+=Very High MARILU HOFFMANN MD Nov 03, 2019 18:43
--- NOTE | 2019-11-03 20:00 | NUR ---
DISCUSSED THE NEED FOR PATIENT TO SIGN CONSENT FOR HEART CATH AND TO COMPLETE LIFE VEST PAPERWORK WITH PATIENT. PATIENT VERY SHORT AND RUDE WITH HIS RESPONSES AND STATES THAT HE HAS BEEN "TOO BUSY" TO LOOK AT THE LIFE VEST PAPERWORK AT BEDSIDE. ASKED PATIENT IF HE COULD SIGN CONSENT AT THIS TIME. PATIENT STATES "FINE! GET ME A PEN NOW!". WITNESSED PATIENT SIGN HEART CONSENT, PERFORMED PHYSICAL ASSESSMENT, AND ASKED IF PATIENT HAD ANY OTHER NEEDS AT THIS TIME. PATIENT DENIED ADDITIONAL NEEDS. UPON LEAVING THE ROOM, ACKNOWLEDGED TO PATIENT THAT IT IS UNDERSTANDABLE THAT HE HAS HAD A DIFFICULT DAY BUT THAT THIS NURSE INTENDS TO TREAT HIM WITH KINDNESS AND RESPECT AND WOULD APPRECIATE THE SAME. REMINDED PATIENT THAT "PLEASE AND THANK YOU GO A LONG WAY".
[2019-11-03] MEDS ORDERED: NON-FORMULARY MEDICATION 1 EA EA PO SCH (21:00)
--- NOTE | 2019-11-03 23:00 | NUR ---
CALLED DR. MOSELEY AND INFORMED HIM THAT PATIENT'S BLOOD PRESSURE WAS RUNNING 100'S/68'S AND HEART RATE 58-60. RECEIVED ORDER TO CONTINUE TO HOLD EVENING DOSE OF METOPROLOL.
[2019-11-04] VITALS (12 sets, daily range): BP systolic 94–146; BP diastolic 69–94
[2019-11-04] MEDS: RT-ALBUTEROL/IPRATROPIUM 3 ML (DUONEB) VIAL INH SCH ×6 (02:13→21:39)
[2019-11-04] MEDS: PIPERACILLIN/TAZO 4.5 GM/NS 100 ML IV SCH ×6 (03:57→21:51)
[2019-11-04 04:12] LABS: BASOPHILS % (AUTO) 0 % (0-10); EOSINOPHILS # (AUTO) 0.3 10^3/uL (0.0-0.3); EOSINOPHILS % (AUTO) 2 % (0-10); HEMATOCRIT 48 % (40-54); HEMOGLOBIN 15.7 G/DL (13.3-17.7); LYMPHOCYTES # (AUTO) 1.6 X 10^3 (1.0-4.0); LYMPHOCYTES % (AUTO) 14 % (12-44); MEAN CORPUSCULAR HEMOGLOBIN 30 PG (25-34); MEAN CORPUSCULAR HGB CONC 33 G/DL (32-36); MEAN CORPUSCULAR VOLUME 90 FL (80-99); MEAN PLATELET VOLUME 10.3 FL (7.4-10.4); MONOCYTES # (AUTO) 0.9 X 10^3 (0.0-1.0); MONOCYTES % (AUTO) 8 % (0-12); NEUTROPHILS % (AUTO) 76 % (42-75); PLATELET COUNT 367 10^3/uL (130-400); RED CELL DISTRIBUTION WIDTH 13.9 % (10.0-14.5); WHITE BLOOD COUNT 11.8 10^3/uL (4.3-11.0)
[2019-11-04 04:35] LABS: ALANINE AMINOTRANSFERASE 58 U/L (0-55); ALBUMIN 2.8 GM/DL (3.2-4.5); ALKALINE PHOSPHATASE 71 U/L (40-136); BILIRUBIN,TOTAL 1.6 MG/DL (0.1-1.0); BUN/CREATININE RATIO 16; CALCIUM 8.4 MG/DL (8.5-10.1); CARBON DIOXIDE 24 MMOL/L (21-32); CHLORIDE 103 MMOL/L (98-107); CREATININE SERUM 0.92 MG/DL (0.60-1.30); GFR ESTIMATED > 60; GLUCOSE 123 MG/DL (70-105); POTASSIUM 3.3 MMOL/L (3.6-5.0); SODIUM 141 MMOL/L (135-145); TOTAL PROTEIN 6.1 GM/DL (6.4-8.2)
[2019-11-04] MEDS: inSUlin ASPART (NovoLOG) 1 UNIT/0.01 ML (CHARGE PER UNIT) SC SCH ×4 (04:44→21:34)
[2019-11-04] MEDS ORDERED: HEParin 1000 UNIT/ML (10ML VIAL) FOR BOLUS ONE (06:45)
[2019-11-04] MEDS ORDERED: NS IV 1000 ML 2,000 ML ONE (06:46)
[2019-11-04] MEDS ORDERED: LIDOCAINE 1% INJ 20 ML 20 ML VIAL ONE (06:46)
--- NOTE | 2019-11-04 07:06 | Progress Note - Surgery ---
ARBEN SPRAGUE,MED STUDENT 11/04/19 0706: Subjective Date Seen by a Provider: Nov 04, 2019 Time Seen by a Provider: 06:23 Subjective/Events-last exam Patient seen and examined in bed this morning. He states his breathing is improving each day, and he has been able to walk around his room without feeling short of breath. He states he has his angiography today at noon and is very nervous about it. Review of Systems General: No Chills, No Night Sweats, No Fatigue HEENT: No Head Aches, No Visual Changes; Sinus Congestion Pulmonary: No Dyspnea; Cough Cardiovascular: Edema; No: Chest Pain, Palpitations Gastrointestinal: No: Nausea, Vomiting, Abdominal Pain, Diarrhea, Constipation Neurological: Other (Anxiety); No: Weakness Focused Exam Lactate Level 11/01/19 14:50: Lactic Acid Level 1.94 Objective Exam Vital Signs Date Time Temp Pulse Resp B/P (MAP) Pulse Ox O2 Delivery O2 Flow Rate FiO2 11/04/19 04:00 36.5 99 22 146/88 (107) 94 Room Air 11/04/19 04:00 94 Room Air 11/04/19 02:11 93 Room Air 11/04/19 01:00 101 11/04/19 00:00 96 Room Air 11/03/19 23:59 36.5 61 20 100/68 (79) 96 Room Air 11/03/19 22:22 92 Room Air 11/03/19 20:00 36.6 58 17 106/73 (84) 97 Room Air 11/03/19 20:00 95 Room Air 11/03/19 19:00 101 11/03/19 16:00 36.0 60 21 106/76 (86) 97 Room Air 11/03/19 16:00 95 Room Air 11/03/19 14:55 94 Room Air 11/03/19 14:00 103 39 106/89 (95) 92 Nasal Cannula 2.00 11/03/19 13:00 92 35 91 Nasal Cannula 2.00 11/03/19 12:30 109 11/03/19 12:00 36.0 11/03/19 12:00 94 Room Air 11/03/19 12:00 112 39 108/85 (93) 94 Nasal Cannula 2.00 11/03/19 10:00 116 31 118/85 (96) 93 Nasal Cannula 2.00 11/03/19 09:36 94 Nasal Cannula 1.00 11/03/19 09:00 98 24 120/90 (100) 93 Nasal Cannula 2.00 11/03/19 08:00 36.0 11/03/19 08:00 93 Room Air 11/03/19 08:00 98 35 136/100 (112) 94 Nasal Cannula 2.00 I & O 11/04/19 07:00 Intake Total 1075 ml Output Total 2150 ml Balance -1075 ml Capillary Refill : Less Than 3 Seconds General Appearance: No Apparent Distress, WD/WN, Anxious HEENT: PERRL/EOMI, Moist Mucous Membranes; No Pharyngeal Erythema, No Scleral Icterus (L), No Scleral Icterus (R) Neck: Non Tender, Supple; No Lymphadenopathy (L), No Lymphadenopathy (R) Respiratory: Chest Non Tender, No Accessory Muscle Use, No Respiratory Distr ess, Crackles (right lower), Decreased Breath Sounds (right lower) Cardiovascular: Regular Rate, Rhythm, No Murmur, Irregularly Irregular, Tachycardia Peripheral Pulses: 2+ Dorsalis Pedis (R), 2+ Left Dors-Pedis (L), 2+ Radial Pulses (R), 2+ Radial Pulses (L) Gastrointestinal: normal bowel sounds, non tender, soft; No distended Extremity: No Calf Tenderness, Pedal Edema Neurologic/Psychiatric: Alert, Oriented x3, No Motor/Sensory Deficits, Depressed Affect Skin: Normal Color, Warm/Dry Results Lab Laboratory Tests 11/03/19 11:09: Glucometer 144H 11/03/19 15:36: Glucometer 139H 11/03/19 16:37: Sodium Level 142, Potassium Level 3.5L, Chloride Level 103, Carbon Dioxide Level 27, Anion Gap 12, Blood Urea Nitrogen 13, Creatinine 1.03, Estimat Glomerular Filtration Rate > 60, BUN/Creatinine Ratio 13, Glucose Level 112H, Calcium Level 8.3L, Phosphorus Level 2.1L, Magnesium Level 1.6 11/03/19 20:27: Glucometer 133H 11/04/19 03:58: White Blood Count 11.8H, Red Blood Count 5.31, Hemoglobin 15.7, Hematocrit 48, Mean Corpuscular Volume 90, Mean Corpuscular Hemoglobin 30, Mean Corpuscular Hemoglobin Concent 33, Red Cell Distribution Width 13.9, Platelet Count 367, Mean Platelet Volume 10.3, Neutrophils (%) (Auto) 76H, Lymphocytes (%) (Auto) 14, Monocytes (%) (Auto) 8, Eosinophils (%) (Auto) 2, Basophils (%) (Auto) 0, Neutrophils # (Auto) 9.0H, Lymphocytes # (Auto) 1.6, Monocytes # (Auto) 0.9, Eosinophils # (Auto) 0.3, Basophils # (Auto) 0.0, Sodium Level 141, Potassium Level 3.3L, Chloride Level 103, Carbon Dioxide Level 24, Anion Gap 14, Blood Urea Nitrogen 15, Creatinine 0.92, Estimat Glomerular Filtration Rate > 60, BUN/Creatinine Ratio 16, Glucose Level 123H, Calcium Level 8.4L, Corrected Calcium 9.4, Total Bilirubin 1.6H, Aspartate Amino Transf (AST/SGOT) 42H, Alanine Aminotransferase (ALT/SGPT) 58H, Alkaline Phosphatase 71, Total Protein 6.1L, Albumin 2.8L Microbiology 11/01/19 MRSA Screen - Final, Complete MRSA not isolated 11/01/19 Blood Culture - Preliminary, Resulted No growth Assessment/Plan Assessment/Plan Assessment/Plan Right Pleural Effusion Right Middle and Lower lobe Pneumonia B/L PE AFib with RVR SOB (because of all the above) Pt has a moderate right pleural effusion seen on chest CT; it is difficult to determine how much this is contributing to his SOB. He is on Lovenox because of the PE and Afib; which would be a relative contraindication to Thoracentesis. The Lovenox can be stopped if it becomes apparent that Thoracentesis would help his condition. Pt is on IV ABX or the pneumonia, he needs pulmonary toilet and breathing treatments per RT. At this point his breathing is fine, would hold off on Thoracentesis. Verification and Attestation of Medical Student E/M Service A medical student performed and documented this service in my presence. I reviewed and verified all information documented by the medical student and made modifications to such information, when appropriate. I personally performed the physical exam and medical decision making. Rocky Jenkins, Nov 03, 2019,19:56 Clinical Quality Measures DVT/VTE Risk/Contraindication: Risk Factor Score Per Nursin RFS Level Per Nursing on Admit: 4+=Very High ROCKY JENKINS DO 1/01/19 2217: Subjective Time Seen by a Provider: 11:16 Subjective/Events-last exam Pt seen and examined, just before his cath. Breathing is ok. Review of Systems Pulmonary: No Dyspnea; Cough; No Pleuritic Chest Pain Cardiovascular: Palpitations; No: Chest Pain Gastrointestinal: No: Nausea, Vomiting, Abdominal Pain Objective Exam General Appearance: No Apparent Distress, Anxious HEENT: Moist Mucous Membranes; No Scleral Icterus (L), No Scleral Icterus (R) Respiratory: Chest Non Tender, No Accessory Muscle Use, No Respiratory Distress, Crackles (right lower), Decreased Breath Sounds (right lower) Gastrointestinal: non tender, soft; No distended Assessment/Plan Assessment/Plan Assessment/Plan Right Pleural Effusion B/L PE Hold off on thoracentesis for now. Supervisory-Addendum Brief Verification & Attestation Participated in pt care: history, MDM, physical Personally performed: exam, history, MDM Care discussed with: Medical Student Procedures: n/a Verification and Attestation of Medical Student E/M Service A medical student performed and documented this service in my presence. I reviewed and verified all information documented by the medical student and made modifications to such information, when appropriate. I personally performed the physical exam and medical decision making. Rocky Jenkins, Nov 04, 2019,22:17 ARBEN SPRAGUE,MED STUDENT Nov 04, 2019 07:06 ROCKY JENKINS DO Nov 04, 2019 22:17
[2019-11-04] MEDS: FUROSEMIDE 40 MG/4 ML INJ (LASIX) IVP SCH ×2 (07:54→17:31)
[2019-11-04 08:06] LABS: INR 1.3 (0.8-1.4); PROTHROMBIN TIME PATIENT 16.5 SEC (12.2-14.7)
[2019-11-04] MEDS ORDERED: NS IV 500 ML 500 ML IV ONE (08:15)
--- NOTE | 2019-11-04 08:39 | Physician Query Clarification ---
PQ-Further Specificity Admission/Discharge Admission Date: Nov 01, 2019 at 13:40 Discharge Date: The medical record reflects the following clinical scenario: History/Risk Factors: HTN, CHF, PE, pneumonia, DVT, cardiomyopathy Clinical Findings: EF 20%, BNP 1255.4 Treatment: 40 mg IVP Lasix Question: Can you further specify acute CHF per the clinical indicators above? Please document a response in the Progress Notes or Discharge Summary. 1. Acute systolic CHF 2. Acute CHF can not be further specified 3. Other, with explanation of the clinical findings. 4. Clinically undetermined, no explanation for the clinical findings. PHYSICIAN RESPONSE Can you specify per above: 1 Please remember a lack of response to the above will prompt a phone page by CDI /Coding staff. In responding to this query, please exercise your independent professional judgment. The purpose of this communication is to more accurately reflect the complexity of your patients condition. The fact that a question is asked does not imply that any particular answer is desired or expected. Thank you for your timely response to this clarification. Requestors name: Quinten THIS PHYSICIAN QUERY FORM IS A PERMANENT PART OF THE MEDICAL RECORD QUINTEN SCHULZ Nov 04, 2019 08:39 Vincent MOSELEY MD Nov 04, 2019 10:43
[2019-11-04] MEDS: PANTOPRAZOLE 40 MG (PROTONIX) TAB PO SCH (09:00)
[2019-11-04] MEDS: POTASSIUM CL 10MEQ/50ML IVPB 50 ML IV SCH ×8 (09:09→20:40)
--- NOTE | 2019-11-04 09:19 | Pulmonary Progress Note ---
Subjective Time Seen by a Provider: 10:11 Subjective/Events-last exam PT is doing better. Sepsis Event Evaluation Height, Weight, BMI Height: '" Weight: lbs. oz. kg; 34.00 BMI Method: Focused Exam Lactate Level 11/01/19 14:50: Lactic Acid Level 1.94 Exam Exam Vital Signs Date Time Temp Pulse Resp B/P (MAP) Pulse Ox O2 Delivery O2 Flow Rate FiO2 11/04/19 07:00 99 11/04/19 04:00 36.5 99 22 146/88 (107) 94 Room Air 11/04/19 04:00 94 Room Air 11/04/19 02:11 93 Room Air 11/04/19 01:00 101 11/04/19 00:00 96 Room Air 11/03/19 23:59 36.5 61 20 100/68 (79) 96 Room Air 11/03/19 22:22 92 Room Air 11/03/19 20:00 36.6 58 17 106/73 (84) 97 Room Air 11/03/19 20:00 95 Room Air 11/03/19 19:00 101 11/03/19 16:00 36.0 60 21 106/76 (86) 97 Room Air 11/03/19 16:00 95 Room Air 11/03/19 14:55 94 Room Air 11/03/19 14:00 103 39 106/89 (95) 92 Nasal Cannula 2.00 11/03/19 13:00 92 35 91 Nasal Cannula 2.00 11/03/19 12:30 109 11/03/19 12:00 36.0 11/03/19 12:00 94 Room Air 11/03/19 12:00 112 39 108/85 (93) 94 Nasal Cannula 2.00 11/03/19 10:00 116 31 118/85 (96) 93 Nasal Cannula 2.00 11/03/19 09:36 94 Nasal Cannula 1.00 I & O 11/04/19 07:00 Intake Total 1075 ml Output Total 2150 ml Balance -1075 ml Height & Weight Height: '" Weight: lbs. oz. kg; 34.00 BMI Method: General Appearance: No Apparent Distress, WD/WN, Anxious HEENT: PERRL/EOMI, Moist Mucous Membranes; No Pharyngeal Erythema, No Scleral Icterus (L), No Scleral Icterus (R) Neck: Non Tender, Supple; No Lymphadenopathy (L), No Lymphadenopathy (R) Respiratory: Chest Non Tender, No Accessory Muscle Use, No Respiratory Distress, Crackles (right lower), Decreased Breath Sounds (right lower) Cardiovascular: Regular Rate, Rhythm, No Murmur, Irregularly Irregular, Tachycardia Capillary Refill: Less Than 3 Seconds Peripheral Pulses: 2+ Dorsalis Pedis (R), 2+ Left Dors-Pedis (L), 2+ Radial Pulses (R), 2+ Radial Pulses (L) Gastrointestinal: normal bowel sounds, non tender, soft; No distended Extremity: No Calf Tenderness, Pedal Edema Neurologic/Psychiatric: Alert, Oriented x3, No Motor/Sensory Deficits, Depressed Affect Skin: Normal Color, Warm/Dry Results Lab Laboratory Tests 11/03/19 03:13 11/03/19 16:37 11/04/19 03:58 Assessment/Plan Assessment/Plan Acute bilateral provoked PE with right pleural effusion -I agree with holding off on thoracentesis at this time -Continue to monitor pleural effusion -Continue anticoagulation - currently on hold for cardiac cath -Start PO anticoagulation when ok with cardiology Cardiomyopathy with EF of 20% -Cardiology following LL Ext DVT Afib Hx of melanoma 1995 HTN HENRIETTA RYAN DO Nov 04, 2019 09:19
--- NOTE | 2019-11-04 09:20 | Progress Note - Hospitalist ---
LEDY SINCLAIR,MED STUDENT 11/04/19 0919: Subjective HPI/CC On Admission Date Seen by Provider: Nov 04, 2019 Time Seen by Provider: 07:08 Chief complaint: Shortness of breath with fatigue History of present illness: This is a 59-year-old male who has not seen a doctor for 5 years but saw [facility] Kaden Lawler when he was last seen who reports he's been in excellent health until Halloween of this year when he began having a cough and shortness of breath and wheezing and severe fatigue. He denied any significant other issues such as weight loss or weight gain but he does report lower extremity edema. He went to the ER was found to have hypoxia cytosis anasarca pleural effusion with bilateral pulmonary emboli and infiltrate with new onset atrial fibrillation with rapid ventricular response with elevated troponin and BNP so he was placed on Lovenox administered to the ICU for close monitoring with cardiology and general surgery consultation. He reports that he had a right lower extremity melanoma at 37 years old status post resection at [facility] but has had no other surgeries or trauma to the left leg where the ultrasound confirmed the acute left lower extremity DVT. 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 He lives alone. 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 but denies any other exposures Denies chest pain, headache, abdominal pain, const/diarrhea Not accompanied by family in room No other complaints Focused Exam Lactate Level 11/01/19 14:50: Lactic Acid Level 1.94 Objective Exam Vital Signs Vital Signs Date Time Temp Pulse Resp B/P (MAP) Pulse Ox O2 Delivery O2 Flow Rate FiO2 11/04/19 07:00 99 11/04/19 04:00 36.5 22 146/88 (107) 94 Room Air 11/03/19 14:00 2.00 Capillary Refill : Less Than 3 Seconds General Appearance: No Apparent Distress, WD/WN HEENT: Pharynx Normal, Moist Mucous Membranes Neck: Non Tender, Supple Respiratory: Chest Non Tender, No Accessory Muscle Use, No Respiratory Distress, Crackles, Decreased Breath Sounds Cardiovascular: No Gallop, No Murmur, Irregularly Irregular, Tachycardia Gastrointestinal: Non Tender, Soft Extremity: No Calf Tenderness, Pedal Edema (+4 pitting ), Slow Capillary Refill Neurologic/Psychiatric: Alert, Oriented x3 Skin: Normal Color, Warm/Dry Results/Procedures Lab Laboratory Tests 11/03/19 16:37 11/04/19 03:58 Patient resulted labs reviewed. Assessment/Plan Assessment and Plan Assess & Plan/Chief Complaint Assessment: Bilateral pulmonary emboli Acute cor pulmonale Atrial fibrillation Hx melanoma 1995 HTN Right sided PNA, pleural effusion Hypokalemia elevated BNP Metabolic acidosis Plan: Cardiac cath at noon today Lovenox Cont. IV Abx Cardio adding enoxaparin, changing cardizem drip to lopressor Surg/pulm rec. holding thoracentesis while on anticoag. Pt SOB has improved markedly so this is reasonable plan Oncology consulted due to precipitous manifestation of hypercoagulable state Clinical Quality Measures DVT/VTE Risk/Contraindication: Risk Factor Score Per Nursin RFS Level Per Nursing on Admit: 4+=Very High JUSTYNA MENDOZA DO 11/04/19 1503: Subjective Subjective/Events-last exam Cardiac cath scheduled for today at noon Bowel moved times 2 today Walked around the unit Improved breathing Oxygen improved requirement Ejection fraction 20% Reviewed labs Potassium 3.3 supplementing and he is complaining about the burning IV Review of Systems Pulmonary: Dyspnea Objective Exam General Appearance: No Apparent Distress, WD/WN, Chronically ill Respiratory: Crackles, Wheezing Cardiovascular: Regular Rate, Rhythm, No Edema, No Gallop, No JVD, No Murmur, Normal Peripheral Pulses Neurologic/Psychiatric: Alert, Oriented x3, No Motor/Sensory Deficits, Normal Mood/Affect Assessment/Plan Assessment and Plan Assess & Plan/Chief Complaint Cardiac cath today Entresto Oxygen wean Appreciate Dr. Winston Diagnosis/Problems Diagnosis/Problems (1) Bilateral pulmonary embolism (2) Acute CHF Status: Acute Qualifiers: Qualified Codes: I50.9 - Heart failure, unspecified (3) Atrial fibrillation with rapid ventricular response Status: Acute (4) Acute cor pulmonale Status: Acute (5) Anxiety (6) Abnormal albumin (7) Elevated troponin (8) History of melanoma (9) Left leg DVT (10) Elevated brain natriuretic peptide (BNP) level Supervisory-Addendum Brief Verification & Attestation Participated in pt care: history, MDM, physical Personally performed: exam, history, MDM, supervision of care Care discussed with: Medical Student Procedures: n/a Results interpretation: Verified all documentation Verification and Attestation of Medical Student E/M Service A medical student performed and documented this service in my presence. I reviewed and verified all information documented by the medical student and made modifications to such information, when appropriate. I personally performed the physical exam and medical decision making. Justyna Mendoza, Nov 04, 2019,21:11 LEDY SINCLAIR,MED STUDENT Nov 04, 2019 09:19 JUSTYNA MENDOZA DO Nov 04, 2019 15:03
--- NOTE | 2019-11-04 09:58 | Physical Therapy Daily Note ---
PT Daily Note-Current Subjective Patient sitting EOB with no c/o. Agrees to PT. Per patient, he has been up in his room independently without difficulty. Mental Status Patient Orientation: Normal For Age Attachments: IV Transfers SCALE: Activities may be completed with or without assistive devices. 4-Vcaitszneh-jmeqlzh completes the activity by him/herself with no assistance from a helper. 5-Set-up or Clean-up Assistance-helper sets up or cleans up; patient completes activity. Layton assists only prior to or following the activity. 4-Supervision or Touching Assistance-helper provides verbal cues and/or touching/steadying and/or contact guard assistance as patient completes activity. Assistance may be provided throughout the activity or intermittently. 3-Partial/Moderate Assistance-helper does LESS THAN HALF the effort. Layton lifts, holds or supports trunk or limbs, but provides less than half the effort. 2-Substantial/Maximal Assistance-helper does MORE THAN HALF the effort. Layton lifts or holds trunk or limbs and provides more than half the effort. 2-Jpqugzdwd-gstvxn does ALL the effort. Patient does none of the effort to complete the activity. Or, the assistance of 2 or more helpers is required for the patient to complete the activity. If activity was not attempted, code reason: 7-Patient Refused. 9-Not Applicable-not attempted and the patient did not perform the activity before the current illness, exacerbation or injury. 10-Not Attempted due to Environmental Limitations-(lack of equipment, weather restraints, etc.). 88-Not Attempted due to Medical Conditions or Safety Concerns. Sit to Stand (QC): 6 Gait Training Does the Patient Walk?: Yes Distance: 500' Walk 10 feet (QC): 6 Walk 50 ft with 2 Turns(QC): 6 Walk 150 ft (QC): 6 Gait Assistive Device: None safe and functional with no deviation Assessment Patient is currently at independent PLOF with all gross motor skills and does no require skilled therapy intervention PT Jail Goals Saddle Tree Stitcher Goals PT Saddle Tree Stitcher Goals Time Frame: Nov 11, 2019 Sit to Lying (QC): 6 Lying-Sitting on Side/Bed(QC): 6 Sit to Stand (QC): 6 Walk 150 ft (QC): 6 PT Plan Treatment/Plan Treatment Plan: Discontinue PT, goals met Treatment Plan: Bed Mobility, Education, Functional Activity Jagruti, Functional Strength, Gait, Safety, Therapeutic Exercise, Transfers Treatment Duration: Nov 11, 2019 Frequency: 6 times per week Estimated Hrs Per Day: .25 hour per day Time/GCodes Time In: 830 Time Out: 841 Total Billed Treatment Time: 11 Total Billed Treatment 1 visit FA 11 min BROOK PATRICK PT Nov 04, 2019 09:58
[2019-11-04] MEDS ORDERED: MIDAZOLAM 5 MG/5 ML (VERSED) VIAL ONE (10:43)
[2019-11-04] MEDS ORDERED: fentaNYL INJECTION 100 MCG/2 ML AMP ONE (10:43)
[2019-11-04] MEDS ORDERED: NS IV 1000 ML 1,000 ML ONE (11:05)
--- NOTE | 2019-11-04 11:56 | Cardiology Progress Note ---
Cardiology SOAP Progress Note Subjective: Significantly improved shortness of breath. Objective: I&O/Vital Signs 11/03/19 11/04/19 11/04/19 11/04/19 23:59 00:00 01:00 02:11 Temp 36.5 Pulse 61 101 Resp 20 B/P (MAP) 100/68 (79) Pulse Ox 96 96 93 O2 Delivery Room Air Room Air Room Air 11/04/19 11/04/19 11/04/19 11/04/19 04:00 04:00 07:00 09:40 Temp 36.5 36.5 Pulse 99 99 85 Resp 22 B/P (MAP) 146/88 (107) Pulse Ox 94 94 93 O2 Delivery Room Air Room Air FiO2 21 11/04/19 09:40 Pulse Ox 93 O2 Delivery Room Air 11/04/19 00:00 Intake Total 775 ml Output Total 750 ml Balance 25 ml Constitutional: appears stated age, AAO x 3 Respiratory: chest is bilaterally symmetric, other (decreased air entry bilaterally) Cardiovascular: irregularly irregular, tachycardia, S1 and S2 Gastrointestional: soft, audible bowel sounds; No spleenomegaly Extremities: normal range of motion, non-tender, normal inspection; No clubbing, No cyanosis; no lower extremity edema bilateral; No significant edema Neurologic/Psychiatric: no motor/sensory deficits, alert, normal mood/affect, oriented x 3, power is 5/5 both on sides Skin: normal color, warm/dry; No rash, No ulcerations Results/Procedures: Labs Laboratory Tests 11/03/19 15:36: Glucometer 139H 11/03/19 16:37: Sodium Level 142, Potassium Level 3.5L, Chloride Level 103, Carbon Dioxide Level 27, Anion Gap 12, Blood Urea Nitrogen 13, Creatinine 1.03, Estimat Glomerular Filtration Rate > 60, BUN/Creatinine Ratio 13, Glucose Level 112H, Calcium Level 8.3L, Phosphorus Level 2.1L, Magnesium Level 1.6 11/03/19 20:27: Glucometer 133H 11/04/19 03:58: Sodium Level 141, Potassium Level 3.3L, Chloride Level 103, Carbon Dioxide Level 24, Anion Gap 14, Blood Urea Nitrogen 15, Creatinine 0.92, Estimat Glomerular Filtration Rate > 60, BUN/Creatinine Ratio 16, Glucose Level 123H, Calcium Level 8.4L, White Blood Count 11.8H, Red Blood Count 5.31, Hemoglobin 15.7, Hematocrit 48, Mean Corpuscular Volume 90, Mean Corpuscular Hemoglobin 30, Mean Corpuscular Hemoglobin Concent 33, Red Cell Distribution Width 13.9, Platelet Count 367, Mean Platelet Volume 10.3, Neutrophils (%) (Auto) 76H, Lymphocytes (%) (Auto) 14, Monocytes (%) (Auto) 8, Eosinophils (%) (Auto) 2, Basophils (%) (Auto) 0, Neutrophils # (Auto) 9.0H, Lymphocytes # (Auto) 1.6, Monocytes # (Auto) 0.9, Eosinophils # (Auto) 0.3, Basophils # (Auto) 0.0, Corrected Calcium 9.4, Total Bilirubin 1.6H, Aspartate Amino Transf (AST/SGOT) 42H, Alanine Aminotransferase (ALT/SGPT) 58H, Alkaline Phosphatase 71, Total Protein 6.1L, Albumin 2.8L 11/04/19 07:45: Prothrombin Time 16.5H, INR Comment 1.3 Microbiology 11/01/19 MRSA Screen - Final, Complete MRSA not isolated 11/01/19 Blood Culture - Preliminary, Resulted No growth A/P: Assessment/Dx: Bilateral PE, Severe right-sided pneumonia, Non-STEMI, Atrial fibrillation with rapid ventricular rate, Severe cardiomyopathy Plan: Bilateral PE, start PE dose enoxaparin. Plan to change to oral anticoagulation after coronary angiography. Positive DVT. Severe right-sided pneumonia, broad-spectrum antibiotics. Defer to the primary team. Non-STEMI, could be type II myocardial infarction secondary to severe systemic illness including bilateral PE and severe right-sided pneumonia. Atrial fibrillation with rapid ventricular rate, anticoagulation and rate control. IV amiodarone as well. Unlikely to convert till resolution of severe systemic illness. Change Cardizem to Lopressor. Severe cardiomyopathy, new onset. Coronary angiography 11/04/2019. treat for severe acute congestive heart failure and cardiomyopathy with IV Lasix. On Entresto and Lopressor. LifeVest for primary prevention of sudden cardiac . Thank you for your consultation. Please call me if you have any questions. Bruce Fine MD, FACP, FACC, FSCAI, FHRS, CCDS Interventional Cardiology Cardiac Electrophysiology Vascular Medicine and Endovascular Interventions Focused Exam Lactate Level 11/01/19 14:50: Lactic Acid Level 1.94 Vincent FINE MD Nov 04, 2019 11:56
--- NOTE | 2019-11-04 11:56 | Coronary Angiography Report ---
Coronary Angiography Report DATE OF PROCEDURE: 11/04/19 INDICATION: New onset cardiomyopathy, positive cardiac enzymes, congestive heart failure. PREOPERATIVE DIAGNOSIS: New onset cardiomyopathy, positive cardiac enzymes, c ongestive heart failure. POSTOPERATIVE DIAGNOSIS: Patent epicardial coronary arteries. HISTORY: This is a 59-year-old gentleman that has bilateral pulmonary embolism, pneumonia, atrial fibrillation with RVR. New-onset cardiomyopathy with an EF of 20-25 percent. Therefore, the patient was scheduled for coronary angiography. PROCEDURES PERFORMED: 1.Coronary angiography. 2.Left heart catheterization. COMPLICATIONS: None. SPECIMENS: None. ESTIMATED BLOOD LOSS: 10 mL ANESTHESIA: Conscious sedation ANTICOAGULATION: None. CONTRAST: 64 mL. FLUOROSCOPY: 4.3 minutes. FLOUROSCOPY DOSE: 735 mgy. PROCEDURE DETAILS: The patient is a 59 male and was brought to the labor specialist after informed consent was taken. All the risks and complications were explained in detail; this included the risk of bleeding, vascular damage, stroke, WA and even . The patient was draped and prepped in the usual sterile fashion. Access was gained in the right femoral artery with a 6 Burmese sheath. Coronary angiography and left heart catheterization was performed with a JR4 and JL4 catheter. FINDINGS: 1.Left main: Patent. 2.LAD: Patent. 3.Left circumflex artery: Patent. 4.RCA: Patent. 5.Left heart catheterization: Aortic pressure 97/67 mmHg, LV pressure 103/2 mmHg. LVEDP 14 mmHg. Significantly reduced LV systolic function with global hypokinesis. No gradient across the aortic valve. CONCLUSIONS: 1. Nonischemic dilated cardiomyopathy. 2. Continue aggressive medical therapy for congestive heart failure and cardiomyopathy. 3. LifeVest for sudden cardiac prevention. Bruce Fine MD, FACP, FACC, [facility] Interventional Cardiology Vincent FINE MD Nov 04, 2019 11:56
--- NOTE | 2019-11-04 11:56 | Cardiac Procedure Note-CS/ASA ---
Pre-Procedure Note Pre-Op Procedure Note H&P Reviewed The H&P was reviewed, patient examined and no changes noted. Date H&P Reviewed: Nov 04, 2019 Time H&P Reviewed: 10:00 Conscious Sedation Pre-Proced Time 10:00 ASA Score 3 For ASA 3 and 4: Consider anesthesia and medical clearance. Also, for patients with a history of failed moderate sedation consider anesthesia. Airway Lungs Heart ASA score ASA 1: a normal healthy patient ASA 2: a patient with a mild systemic disease (mid diabetes, controlled hypertension, obesity ASA 3: a patient with a severe systemic disease that limits activity (angina, COPD, prior Myocardial infarction) ASA 4: a patient with an incapacitating disease that is a constant threat to life (CHF, renal failure) ASA 5: a moribund patient not expected to survive 24 hrs. (ruptured aneurysm) ASA 6: a declared brain- patient whose organs are being harvested. For emergent operations, add the letter E after the classification Mallampati Classification Grade 1 Sedation Plan Analgesia, Amnesia, Plan communicated to team members, Discussed options with patient/fam, Discussed risks with patient/fam The patient is an appropriate candidate to undergo the planned procedure, sedation, and anesthesia. The patient immediately re-assessed prior to indication. Vincent MOSELEY MD Nov 04, 2019 11:56
[2019-11-04] MEDS ORDERED: PATIENT MAY USE OWN MEDS, ALL PO SCH (12:00)
--- NOTE | 2019-11-04 13:54 | Occ Therapy Progress Note ---
Therapy Progress Note Pt attempted to be seen at 1105 and 1309. Pt's nurse states therapy hold for rest of day as pt is recovering from heart cath. OT to treat following day. ARLET CORDERO OTR Nov 04, 2019 13:54
--- NOTE | 2019-11-04 13:59 | NUR ---
CM/SS attempted to get a hold of Boo from the [employer]. A voice mail was left in regards to the status. CM/SS waiting for a call back. CM/SS went to talk to patient and the nurse was in the room and patient recovering from Heart Catheter today.
[2019-11-04] MEDS: NS IV 1000 ML 1,000 ML IV SCH ×2 (14:00→22:04)
[2019-11-04] MEDS: SACUBITRIL/VALSARTAN 24/26 MG (ENTRESTO) TABLET PO SCH ×2 (14:45→21:51)
[2019-11-04] MEDS ORDERED: POTASSIUM CL 10MEQ/50ML IVPB 50 ML IV SCH (16:00)
[2019-11-04] MEDS ORDERED: POTASSIUM CL 10MEQ/50ML IVPB 50 ML IV ONE (17:25)
[2019-11-04] MEDS ORDERED: POTASSIUM CL 10MEQ/50ML IVPB 150 ML IV ONE (18:25)
[2019-11-05] VITALS: BP 102/70
[2019-11-05] MEDS: RT-ALBUTEROL/IPRATROPIUM 3 ML (DUONEB) VIAL INH SCH ×2 (03:38→09:18)
[2019-11-05 03:56] LABS: BASOPHILS % (AUTO) 0 % (0-10); EOSINOPHILS # (AUTO) 0.3 10^3/uL (0.0-0.3); EOSINOPHILS % (AUTO) 3 % (0-10); HEMATOCRIT 49 % (40-54); HEMOGLOBIN 15.9 G/DL (13.3-17.7); LYMPHOCYTES # (AUTO) 2.2 X 10^3 (1.0-4.0); LYMPHOCYTES % (AUTO) 20 % (12-44); MEAN CORPUSCULAR HEMOGLOBIN 29 PG (25-34); MEAN CORPUSCULAR HGB CONC 32 G/DL (32-36); MEAN CORPUSCULAR VOLUME 91 FL (80-99); MEAN PLATELET VOLUME 10.1 FL (7.4-10.4); MONOCYTES # (AUTO) 0.7 X 10^3 (0.0-1.0); MONOCYTES % (AUTO) 6 % (0-12); NEUTROPHILS # (AUTO) 7.8 X 10^3 (1.8-7.8); NEUTROPHILS % (AUTO) 71 % (42-75); PLATELET COUNT 443 10^3/uL (130-400); RED CELL DISTRIBUTION WIDTH 14.1 % (10.0-14.5); WHITE BLOOD COUNT 11.1 10^3/uL (4.3-11.0)
[2019-11-05 04:00] VITALS: BP 113/78
[2019-11-05 04:11] LABS: ALANINE AMINOTRANSFERASE 55 U/L (0-55); ALKALINE PHOSPHATASE 82 U/L (40-136); BILIRUBIN,TOTAL 1.5 MG/DL (0.1-1.0); BUN/CREATININE RATIO 15; CALCIUM 8.5 MG/DL (8.5-10.1); CARBON DIOXIDE 25 MMOL/L (21-32); CHLORIDE 102 MMOL/L (98-107); CREATININE SERUM 1.01 MG/DL (0.60-1.30); GFR ESTIMATED > 60; GLUCOSE 118 MG/DL (70-105); POTASSIUM 3.7 MMOL/L (3.6-5.0); SODIUM 142 MMOL/L (135-145); TOTAL PROTEIN 6.3 GM/DL (6.4-8.2)
[2019-11-05] MEDS: PIPERACILLIN/TAZO 4.5 GM/NS 100 ML IV SCH ×6 (04:37→20:13)
[2019-11-05] MEDS: inSUlin ASPART (NovoLOG) 1 UNIT/0.01 ML (CHARGE PER UNIT) SC SCH ×4 (05:09→20:12)
[2019-11-05] MEDS: FUROSEMIDE 40 MG/4 ML INJ (LASIX) IVP SCH ×2 (06:43→17:49)
[2019-11-05] MEDS ORDERED: POTASSIUM CL 10MEQ/50ML IVPB 300 ML IV ONE (06:54)
[2019-11-05] MEDS: POTASSIUM CL 10MEQ/50ML IVPB 50 ML IV SCH ×4 (06:59→10:16)
--- NOTE | 2019-11-05 06:59 | Pulmonary Progress Note ---
Subjective Time Seen by a Provider: 06:58 Subjective/Events-last exam No complications noted. Sepsis Event Evaluation Height, Weight, BMI Height: '" Weight: lbs. oz. kg; 34.00 BMI Method: Exam Exam Vital Signs Date Time Temp Pulse Resp B/P (MAP) Pulse Ox O2 Delivery O2 Flow Rate FiO2 11/05/19 04:00 36.4 98 18 113/78 (90) 92 Room Air 11/05/19 03:35 90 Room Air 11/05/19 01:00 91 11/05/19 00:00 36.3 90 16 102/70 (81) 94 Room Air 11/04/19 21:36 97 Room Air 11/04/19 20:00 97 Room Air 11/04/19 20:00 36.3 108 18 94/69 (77) 98 Room Air 11/04/19 19:00 109 11/04/19 18:01 36.5 103 18 107/79 (88) 94 Room Air 11/04/19 16:00 97 Room Air 11/04/19 16:00 116 25 118/87 (97) 95 Room Air 11/04/19 15:00 105 32 114/87 (96) Room Air 11/04/19 14:00 95 110/82 (91) Room Air 11/04/19 13:30 96 20 107/94 (98) Room Air 11/04/19 13:00 102 32 116/69 (85) Room Air 11/04/19 12:45 96 15 103/89 (94) Room Air 11/04/19 12:30 101 21 109/90 (96) Room Air 11/04/19 12:24 119 11/04/19 12:15 101 14 108/89 (95) Room Air 11/04/19 12:00 97 Room Air 11/04/19 09:40 93 Room Air 11/04/19 09:40 36.5 85 93 21 11/04/19 08:00 97 Room Air 11/04/19 07:00 99 l I & O 11/05/19 07:00 Intake Total 440 ml Output Total 2100 ml Balance -1660 ml Height & Weight Height: '" Weight: lbs. oz. kg; 34.00 BMI Method: General Appearance: No Apparent Distress, Anxious HEENT: Moist Mucous Membranes; No Scleral Icterus (L), No Scleral Icterus (R) Neck: Non Tender, Supple; No Lymphadenopathy (L), No Lymphadenopathy (R) Respiratory: Chest Non Tender, No Accessory Muscle Use, No Respiratory Distress, Crackles (right lower), Decreased Breath Sounds (right lower) Cardiovascular: Regular Rate, Rhythm, No Edema, No Gallop, No JVD, No Murmur, Normal Peripheral Pulses Capillary Refill: Less Than 3 Seconds Peripheral Pulses: 2+ Dorsalis Pedis (R), 2+ Left Dors-Pedis (L), 2+ Radial Pulses (R), 2+ Radial Pulses (L) Gastrointestinal: non tender, soft; No distended Extremity: No Calf Tenderness, Pedal Edema Neurologic/Psychiatric: Alert, Oriented x3, No Motor/Sensory Deficits, Normal Mood/Affect Skin: Normal Color, Warm/Dry Results Lab Laboratory Tests 11/03/19 16:37 11/04/19 03:58 11/05/19 03:25 Assessment/Plan Assessment/Plan Acute bilateral provoked PE with right pleural effusion -I agree with holding off on thoracentesis at this time -Continue to monitor pleural effusion -Continue anticoagulation - currently on hold for cardiac cath -Start PO anticoagulation when ok with cardiology Cardiomyopathy with EF of 20% -Cardiology following LL Ext DVT Afib Hx of melanoma 1995 HTN HENRIETTA RYAN DO Nov 05, 2019 06:58
[2019-11-05] MEDS: NS IV 1000 ML 1,000 ML IV SCH (07:39)
[2019-11-05 08:00] VITALS: BP 101/66
[2019-11-05] MEDS: PANTOPRAZOLE 40 MG (PROTONIX) TAB PO SCH (09:32)
[2019-11-05] MEDS: SACUBITRIL/VALSARTAN 24/26 MG (ENTRESTO) TABLET PO SCH ×2 (09:32→20:31)
[2019-11-05 12:00] VITALS: BP 116/78
[2019-11-05] MEDS ORDERED: POTASSIUM CL 10MEQ/50ML IVPB 50 ML IV SCH (12:00)
--- NOTE | 2019-11-05 12:08 | Progress Note - Hospitalist ---
Subjective HPI/CC On Admission Date Seen by Provider: Nov 05, 2019 Time Seen by Provider: 11:30 Subjective/Events-last exam Patient much improved Cardiac cath was negative for coronary stenosis as cause for cardiomyopathy EF 20% Edema of the legs improved so will initiate wide SONNY wraps to help with that BM x 2 this morning Zosyn maintained for PNA Lovenox therapeutic dose maintained without bleeding DC likely Thursday depending on Lifevest and rest of clinical status issues Transferring to [facility] and I reviewed all meds and orders RN has no concerns Review of Systems Pulmonary: Dyspnea, Cough Cardiovascular: Edema Objective Exam Vital Signs Vital Signs Date Time Temp Pulse Resp B/P (MAP) Pulse Ox O2 Delivery O2 Flow Rate FiO2 11/05/19 09:18 93 Room Air 11/05/19 08:00 36.6 68 18 101/66 (78) 11/04/19 09:40 21 11/03/19 14:00 2.00 Capillary Refill : Less Than 3 Seconds General Appearance: No Apparent Distress, WD/WN, Chronically ill Respiratory: Chest Non Tender, Lungs Clear, Normal Breath Sounds, No Accessory Muscle Use, No Respiratory Distress, Crackles (subtle much improved) Cardiovascular: Regular Rate, Rhythm, No Edema, No Gallop, No JVD, No Murmur, Normal Peripheral Pulses Extremity: Pedal Edema Neurologic/Psychiatric: Alert, Oriented x3, No Motor/Sensory Deficits, Normal Mood/Affect Results/Procedures Lab Laboratory Tests 11/05/19 03:25 Patient resulted labs reviewed. Assessment/Plan Assessment and Plan Assess & Plan/Chief Complaint Assessment: Bilateral pulmonary emboli Left lower extremity DVT acute New onset atrial fibrillation with rapid ventricular response s/p Cardizem drip History of melanoma 1996 status post resection right lower leg at [facility] at 37 years old Hypertension Elevated troponin due to Type II NSTEMI Elevated BNP Cardiomyopathy EF 20% with normal cath no ischemic cause Right-sided pleural effusion Right-sided pneumonia on Zosyn Hypoxia Tachycardia Low albumin Hypokalemia Edema Plan: Lovenox therapeutic dosing Supportive care IV antibiotics Oxygen wean Lifevest at DC Cardiology consult General surgery consult Monitor closely Entresto Oxygen wean Appreciate Dr. Winston Diagnosis/Problems Diagnosis/Problems (1) Bilateral pulmonary embolism (2) Acute CHF Status: Acute Qualifiers: Heart failure type: unspecified Qualified Codes: I50.9 - Heart failure, unspecified (3) Atrial fibrillation with rapid ventricular response Status: Acute (4) Acute cor pulmonale Status: Acute (5) Anxiety (6) Abnormal albumin (7) Elevated troponin (8) History of melanoma (9) Left leg DVT (10) Elevated brain natriuretic peptide (BNP) level (11) Cardiomyopathy (12) S/P cardiac cath Clinical Quality Measures DVT/VTE Risk/Contraindication: Risk Factor Score Per Nursin RFS Level Per Nursing on Admit: 4+=Very High PATY MENDOZA DO Nov 05, 2019 12:08
--- NOTE | 2019-11-05 12:43 | Progress Note ---
Subjective Date Seen by a Provider: Nov 05, 2019 Time Seen by a Provider: 12:00 Subjective/Events-last exam doing well otherwise. appears very frustrated. states no SOB. CXR unchanged with no increase right pleural effusion. Objective Exam Vital Signs Date Time Temp Pulse Resp B/P (MAP) Pulse Ox O2 Delivery O2 Flow Rate FiO2 11/05/19 09:18 93 Room Air 11/05/19 09:00 94 Room Air 11/05/19 08:00 36.6 68 18 101/66 (78) 94 11/05/19 07:00 118 11/05/19 04:00 36.4 98 18 113/78 (90) 92 Room Air 11/05/19 03:35 90 Room Air 11/05/19 01:00 91 11/05/19 00:00 36.3 90 16 102/70 (81) 94 Room Air 11/04/19 21:36 97 Room Air 11/04/19 20:00 97 Room Air 11/04/19 20:00 36.3 108 18 94/69 (77) 98 Room Air 11/04/19 19:00 109 11/04/19 18:01 36.5 103 18 107/79 (88) 94 Room Air 11/04/19 16:00 97 Room Air 11/04/19 16:00 116 25 118/87 (97) 95 Room Air 11/04/19 15:00 105 32 114/87 (96) Room Air 11/04/19 14:00 95 110/82 (91) Room Air 11/04/19 13:30 96 20 107/94 (98) Room Air 11/04/19 13:00 102 32 116/69 (85) Room Air 11/04/19 12:45 96 15 103/89 (94) Room Air I & O 11/05/19 07:00 Intake Total 440 ml Output Total 2350 ml Balance -1910 ml Capillary Refill : Less Than 3 Seconds General Appearance: No Apparent Distress HEENT: PERRL/EOMI Neck: Full Range of Motion Respiratory: Decreased Breath Sounds Cardiovascular: Regular Rate, Rhythm Gastrointestinal: normal bowel sounds, non tender, soft Extremity: Normal Capillary Refill Neurologic/Psychiatric: Alert, Oriented x3 Skin: Normal Color Lymphatic: No Adenopathy Results Lab Laboratory Tests 11/04/19 13:56: Glucometer 102 11/04/19 16:36: Glucometer 125H 11/05/19 03:25: White Blood Count 11.1H, Red Blood Count 5.43, Hemoglobin 15.9, Hematocrit 49, Mean Corpuscular Volume 91, Mean Corpuscular Hemoglobin 29, Mean Corpuscular Hemoglobin Concent 32, Red Cell Distribution Width 14.1, Platelet Count 443H, Mean Platelet Volume 10.1, Neutrophils (%) (Auto) 71, Lymphocytes (%) (Auto) 20, Monocytes (%) (Auto) 6, Eosinophils (%) (Auto) 3, Basophils (%) (Auto) 0, Neutrophils # (Auto) 7.8, Lymphocytes # (Auto) 2.2, Monocytes # (Auto) 0.7, Eosinophils # (Auto) 0.3, Basophils # (Auto) 0.0, Sodium Level 142, Potassium Level 3.7, Chloride Level 102, Carbon Dioxide Level 25, Anion Gap 15H, Blood Urea Nitrogen 15, Creatinine 1.01, Estimat Glomerular Filtration Rate > 60, BUN/Creatinine Ratio 15, Glucose Level 118H, Calcium Level 8.5, Corrected Calcium 9.3, Total Bilirubin 1.5H, Aspartate Amino Transf (AST/SGOT) 48H, Alanine Aminotransferase (ALT/SGPT) 55, Alkaline Phosphatase 82, Total Protein 6.3L, Albumin 3.0L 11/05/19 11:21: Glucometer 111H Microbiology 11/01/19 MRSA Screen - Final, Complete MRSA not isolated 11/01/19 Blood Culture - Preliminary, Resulted No growth Assessment/Plan Assessment/Plan Assess & Plan/Chief Complaint CHF and right pleural eff. states asx. no change on CXR. will recommend continued medical management for now. Clinical Quality Measures DVT/VTE Risk/Contraindication: Risk Factor Score Per Nursin RFS Level Per Nursing on Admit: 4+=Very High JOVANNY FAITH MD Nov 05, 2019 12:43
--- NOTE | 2019-11-05 13:02 | Physical Therapy Evaluation ---
PT Evaluation-General Medical Diagnosis Admission Date Nov 01, 2019 at 13:40 Medical Diagnosis: Right pleural effusion/pneumonia Onset Date: Nov 01, 2019 Therapy Diagnosis Therapy Diagnosis: UNSTEADY GAIT Precautions Precautions/Isolations: Standard Precautions Weight Bear Status Full Weight Bearing Full Weight Bearing Referral Physician: Dr. Hightower Reason for Referral: Evaluation/Treatment Medical History Pertinent Medical History: Atrial Fib, HTN Reviewed History: Yes Social History Home: Single Level Current Living Status: Alone Entry Into Home: Stairs With Railing PT Steps Into Home: 3 Prior Prior Level of Function SCALE: Activities may be completed with or without assistive devices. 8-Zhgxznikwk-witpzvz completes the activity by him/herself with no assistance from a helper. 5-Set-up or Clean-up Assistance-helper sets up or cleans up; patient completes activity. [place] assists only prior to or following the activity. 4-Supervision or Touching Assistance-helper provides verbal cues and/or touching/steadying and/or contact guard assistance as patient completes activity. Assistance may be provided throughout the activity or intermittently. 3-Partial/Moderate Assistance-helper does LESS THAN HALF the effort. [place] lifts, holds or supports trunk or limbs, but provides less than half the effort. 2-Substantial/Maximal Assistance-helper does MORE THAN HALF the effort. [place] lifts or holds trunk or limbs and provides more than half the effort. 7-Thbuepqsj-eejcxm does ALL the effort. Patient does none of the effort to complete the activity. Or, the assistance of 2 or more helpers is required for the patient to complete the activity. If activity was not attempted, code reason: 7-Patient Refused. 9-Not Applicable-not attempted and the patient did not perform the activity before the current illness, exacerbation or injury. 10-Not Attempted due to Environmental Limitations-(lack of equipment, weather restraints, etc.). 88-Not Attempted due to Medical Conditions or Safety Concerns. Bed Mobility: 6 Transfers (B,C,W/C): 6 Stairs: 6 Indoor Mobility (Ambulation): Independent Stairs: Independent Prior Devices Use: None PT Evaluation-Current Subjective Pt admitted to the ER on 11/01 with SOB. Found to have (B) pulmonary emboli. Underwent Cardiac Cath procedure 11/04/19. Objective Patient Orientation: Normal For Age ROM/Strength ROM Lower Extremities WFL Strength Lower Extremities WFL Integumentary/Posture Bowel Incontinence: No Bladder Incontinence: No Sensory Vision: Functional Hearing: Functional Hand Dominance: Right Sensation Right Lower Extremit: Intact Sensation Left Lower Extremity: Intact Transfers Roll Left to Right (QC): 6 Sit to Lying (QC): 6 Lying to Sitting/Side of Bed(Q: 6 Sit to Stand (QC): 6 Chair/Rrg-wc-Qnbye Xfer(QC): 6 Toilet Transfer: 6 Pt able to move about the room independent with exception of management of lines when IV is attached. Gait Comments/Gait Description Amb 1000ft I with assist for IV pole only. Pt is stable and does not need assist for gait. Assessment/Needs Rehab Potential: Good PT Custodial Goals Unemployment Benefits Claims Taker Goals PT Custodial Goals Time Frame: Nov 05, 2019 Sit to Lying (QC): 6 Lying-Sitting on Side/Bed(QC): 6 Sit to Stand (QC): 6 Walk 150 ft (QC): 6 PT Plan Treatment/Plan Treatment Plan: Discontinue PT, goals met Treatment Plan: Bed Mobility, Education, Functional Activity Jagruti, Functional Strength, Gait, Safety, Therapeutic Exercise, Transfers Treatment Duration: Nov 05, 2019 Frequency: 6 times per week Estimated Hrs Per Day: .25 hour per day Discharge Recommendations Plan Pt demonstrated (I) mobility in the room. He has stable gait and was advised to walk ad alma when he is disconnected from his IV. Until that time, nursing can provide assist for IV pole. Barriers to Progress none Target Placement home Time/GCodes Time In: 1245 Time Out: 1300 Total Billed Treatment Time: 15 Total Billed Treatment visit, sohail low complexity 15 minutes NERISSA POE PT Nov 05, 2019 13:02
[2019-11-05 16:20] VITALS: BP 110/77
--- NOTE | 2019-11-05 16:28 | NUR ---
PT REPORT GIVEN TO JAMMIE RICARDO. PT TRANSPORTED VIA BED TO ROOM 412 WITH BELONGINGS.
--- NOTE | 2019-11-05 16:30 | NUR ---
RECEIVED FROM CARDIAC STEPDOWN, ALERT AND ORIENTED, IV SITE WITHOUT REDNESS OR SWELLING, CALL LIGHT WITHIN REACH, LOWER LEGS EDEMATOUS, RIGHT GROIN HEART CATH SITE WITHOUT BLEEDING OR HEMATOMA, BUTTOCKS RED, ALLEVYN DRESSING APPLIED, DENIES SOB, ON ROOM AIR, O2 SAT 97 PERCENT, PRODUCTIVE COUGH OF BROWNISH SPUTUM.
--- NOTE | 2019-11-05 16:32 | Cardiology Progress Note ---
Cardiology SOAP Progress Note Subjective: Significantly improved shortness of breath. Objective: I&O/Vital Signs 11/05/19 11/05/19 11/05/19 11/05/19 07:00 08:00 09:00 09:18 Temp 36.6 Pulse 118 68 Resp 18 B/P (MAP) 101/66 (78) Pulse Ox 94 94 93 O2 Delivery Room Air Room Air 11/05/19 11/05/19 12:00 13:00 Temp 36.3 Pulse 104 115 Resp 14 B/P (MAP) 116/78 (91) Pulse Ox 96 O2 Delivery Room Air 11/05/19 00:00 Intake Total 440 ml Output Total 2100 ml Balance -1660 ml Constitutional: appears stated age, AAO x 3 Respiratory: chest is bilaterally symmetric, other (decreased air entry b ilaterally) Cardiovascular: irregularly irregular, tachycardia, S1 and S2 Gastrointestional: soft, audible bowel sounds; No spleenomegaly Extremities: normal range of motion, non-tender, normal inspection; No clubbing, No cyanosis; no lower extremity edema bilateral; No significant edema Neurologic/Psychiatric: no motor/sensory deficits, alert, normal mood/affect, oriented x 3, power is 5/5 both on sides Skin: normal color, warm/dry; No rash, No ulcerations Results/Procedures: Labs Laboratory Tests 11/04/19 16:36: Glucometer 125H 11/05/19 03:25: White Blood Count 11.1H, Red Blood Count 5.43, Hemoglobin 15.9, Hematocrit 49, Mean Corpuscular Volume 91, Mean Corpuscular Hemoglobin 29, Mean Corpuscular Hemoglobin Concent 32, Red Cell Distribution Width 14.1, Platelet Count 443H, Mean Platelet Volume 10.1, Neutrophils (%) (Auto) 71, Lymphocytes (%) (Auto) 20, Monocytes (%) (Auto) 6, Eosinophils (%) (Auto) 3, Basophils (%) (Auto) 0, Neutrophils # (Auto) 7.8, Lymphocytes # (Auto) 2.2, Monocytes # (Auto) 0.7, Eosinophils # (Auto) 0.3, Basophils # (Auto) 0.0, Sodium Level 142, Potassium Level 3.7, Chloride Level 102, Carbon Dioxide Level 25, Anion Gap 15H, Blood Urea Nitrogen 15, Creatinine 1.01, Estimat Glomerular Filtration Rate > 60, BUN/Creatinine Ratio 15, Glucose Level 118H, Calcium Level 8.5, Corrected Calcium 9.3, Total Bilirubin 1.5H, Aspartate Amino Transf (AST/SGOT) 48H, Alanine Aminotransferase (ALT/SGPT) 55, Alkaline Phosphatase 82, Total Protein 6.3L, Albumin 3.0L 11/05/19 11:21: Glucometer 111H Microbiology 11/01/19 MRSA Screen - Final, Complete MRSA not isolated 11/01/19 Blood Culture - Preliminary, Resulted No growth A/P: Assessment/Dx: Bilateral PE, Severe right-sided pneumonia, Non-STEMI, Atrial fibrillation with rapid ventricular rate, Severe cardiomyopathy Plan: Bilateral PE, ,Eliquis Positive DVT. Severe right-sided pneumonia, broad-spectrum antibiotics. Defer to the primary team. Non-STEMI, could be type II myocardial infarction secondary to severe systemic illness including bilateral PE and severe right-sided pneumonia. Coronary angiography done 11/04/2019 showed no CAD. Atrial fibrillation with rapid ventricular rate, anticoagulation and rate control. IV amiodarone as well. Unlikely to convert till resolution of severe systemic illness. Change Cardizem to Lopressor. I spoke to him today about transesophageal echocardiogram assisted cardioversion. Patient was very h esitant to undergo cardioversion. Severe dilated nonischemic cardiomyopathy, new onset. Coronary angiography 11/04/2019 showed normal coronaries. treat for severe acute congestive heart failure and cardiomyopathy with IV Lasix. On Entresto and Lopressor. LifeVest for primary prevention of sudden cardiac . Thank you for your consultation. Please call me if you have any questions. Bruce Fine MD, FACP, FACC, FSCAI, FHRS, CCDS Interventional Cardiology Cardiac Electrophysiology Vascular Medicine and Endovascular Interventions Vincent FINE MD Nov 05, 2019 16:32
[2019-11-05] MEDS ORDERED: CATHETER FLUSH 10 ML SYR IV PRN (17:00)
[2019-11-05] MEDS: ENOXAPARIN 100 MG/1 ML (LOVENOX) SYR SC SCH (18:05)
[2019-11-05 20:34] VITALS: BP 101/72
[2019-11-06 00:10] VITALS: BP 113/80
[2019-11-06 04:05] VITALS: BP 102/82
[2019-11-06] MEDS: PIPERACILLIN/TAZO 4.5 GM/NS 100 ML IV SCH ×4 (04:14→12:49)
[2019-11-06 05:14] LABS: BASOPHILS % (AUTO) 0 % (0-10); EOSINOPHILS # (AUTO) 0.4 10^3/uL (0.0-0.3); EOSINOPHILS % (AUTO) 4 % (0-10); HEMATOCRIT 50 % (40-54); HEMOGLOBIN 16.2 G/DL (13.3-17.7); LYMPHOCYTES # (AUTO) 2.1 X 10^3 (1.0-4.0); LYMPHOCYTES % (AUTO) 19 % (12-44); MEAN CORPUSCULAR HEMOGLOBIN 30 PG (25-34); MEAN CORPUSCULAR HGB CONC 33 G/DL (32-36); MEAN CORPUSCULAR VOLUME 92 FL (80-99); MEAN PLATELET VOLUME 10.4 FL (7.4-10.4); MONOCYTES # (AUTO) 0.6 X 10^3 (0.0-1.0); MONOCYTES % (AUTO) 6 % (0-12); NEUTROPHILS # (AUTO) 7.6 X 10^3 (1.8-7.8); NEUTROPHILS % (AUTO) 71 % (42-75); PLATELET COUNT 319 10^3/uL (130-400); RED CELL DISTRIBUTION WIDTH 14.7 % (10.0-14.5); WHITE BLOOD COUNT 10.8 10^3/uL (4.3-11.0)
[2019-11-06 05:39] LABS: ALANINE AMINOTRANSFERASE 48 U/L (0-55); ALBUMIN 2.9 GM/DL (3.2-4.5); ALKALINE PHOSPHATASE 61 U/L (40-136); BILIRUBIN,TOTAL 1.3 MG/DL (0.1-1.0); BUN/CREATININE RATIO 19; CALCIUM 8.6 MG/DL (8.5-10.1); CARBON DIOXIDE 25 MMOL/L (21-32); CHLORIDE 102 MMOL/L (98-107); CREATININE SERUM 1.02 MG/DL (0.60-1.30); GFR ESTIMATED > 60; GLUCOSE 117 MG/DL (70-105); POTASSIUM 3.6 MMOL/L (3.6-5.0); SODIUM 141 MMOL/L (135-145); TOTAL PROTEIN 6.3 GM/DL (6.4-8.2)
[2019-11-06] MEDS: inSUlin ASPART (NovoLOG) 1 UNIT/0.01 ML (CHARGE PER UNIT) SC SCH (05:45)
[2019-11-06] MEDS: ENOXAPARIN 100 MG/1 ML (LOVENOX) SYR SC SCH ×2 (05:51→16:38)
[2019-11-06] MEDS: FUROSEMIDE 40 MG/4 ML INJ (LASIX) IVP SCH ×2 (06:59→16:37)
--- NOTE | 2019-11-06 07:45 | Pulmonary Progress Note ---
Subjective Time Seen by a Provider: 07:41 Subjective/Events-last exam No complications noted. Sepsis Event Evaluation Height, Weight, BMI Height: '" Weight: lbs. oz. kg; 34.00 BMI Method: Exam Exam Vital Signs Date Time Temp Pulse Resp B/P (MAP) Pulse Ox O2 Delivery O2 Flow Rate FiO2 11/06/19 07:00 107 11/06/19 04:05 36.6 78 18 102/82 (89) 96 Room Air 11/06/19 01:00 85 11/06/19 00:10 36.6 82 28 113/80 (91) 95 Room Air 11/05/19 21:00 97 Room Air 11/05/19 20:34 36.4 93 18 101/72 (82) 95 Room Air 11/05/19 19:00 111 11/05/19 17:00 97 Room Air 11/05/19 16:20 36.6 108 16 110/77 (88) 96 Room Air 11/05/19 13:00 115 11/05/19 12:00 36.3 104 14 116/78 (91) 96 Room Air 11/05/19 09:18 93 Room Air 11/05/19 09:00 94 Room Air 11/05/19 08:00 36.6 68 18 101/66 (78) 94 I & O 11/06/19 07:00 Intake Total 1690 ml Output Total 1950 ml Balance -260 ml Height & Weight Height: '" Weight: lbs. oz. kg; 34.00 BMI Method: General Appearance: No Apparent Distress, WD/WN, Anxious HEENT: PERRL/EOMI, Moist Mucous Membranes; No Pharyngeal Erythema, No Scleral Icterus (L), No Scleral Icterus (R) Neck: Non Tender, Supple; No Lymphadenopathy (L), No Lymphadenopathy (R) Respiratory: Chest Non Tender, No Accessory Muscle Use, No Respiratory Distress, Crackles (right lower), Decreased Breath Sounds (right lower) Cardiovascular: Regular Rate, Rhythm, No Murmur, Irregularly Irregular, Tachycardia Capillary Refill: Less Than 3 Seconds Peripheral Pulses: 2+ Dorsalis Pedis (R), 2+ Left Dors-Pedis (L), 2+ Radial Pulses (R), 2+ Radial Pulses (L) Gastrointestinal: normal bowel sounds, non tender, soft; No distended Extremity: No Calf Tenderness, Pedal Edema Neurologic/Psychiatric: Alert, Oriented x3, No Motor/Sensory Deficits, Depressed Affect Skin: Normal Color, Warm/Dry Lymphatic: No Adenopathy Results Lab Laboratory Tests 11/05/19 03:25 11/06/19 04:45 Assessment/Plan Assessment/Plan Acute bilateral provoked PE with right pleural effusion -Sp02 is 96% on RA -Continue to monitor pleural effusion -Change to PO anticoagulation when ok with cardiology Cardiomyopathy with EF of 20% -Cardiology following -Lasix LL Ext DVT Afib Hx of melanoma 1995 HTN HENRIETTA RYAN DO Nov 06, 2019 07:45
[2019-11-06 08:00] VITALS: BP 101/70
[2019-11-06] MEDS: PANTOPRAZOLE 40 MG (PROTONIX) TAB PO SCH (08:19)
[2019-11-06] MEDS: SACUBITRIL/VALSARTAN 24/26 MG (ENTRESTO) TABLET PO SCH ×2 (08:20→20:23)
--- NOTE | 2019-11-06 10:00 | NUR ---
patient refused to have legs wrapped as ordered, Dr Hightower notified
[2019-11-06 12:00] VITALS: BP 115/75
--- NOTE | 2019-11-06 12:57 | Progress Note - Hospitalist ---
Subjective HPI/CC On Admission Date Seen by Provider: Nov 06, 2019 Time Seen by Provider: 11:00 Subjective/Events-last exam Just took a quick shower and feels great DC SSI and accuchecks and he is pleased about that Breating better Weaned off O2 Edema of legs is improved and refuses the chandra wraps No pain is reported Overall much improved status Review of Systems General: Fatigue Pulmonary: Dyspnea Objective Exam Vital Signs Vital Signs Date Time Temp Pulse Resp B/P (MAP) Pulse Ox O2 Delivery O2 Flow Rate FiO2 11/06/19 19:00 95 11/06/19 16:57 36.5 18 100/75 (83) 95 Room Air 11/04/19 09:40 21 11/03/19 14:00 2.00 Capillary Refill : Less Than 3 Seconds General Appearance: No Apparent Distress, WD/WN, Chronically ill Respiratory: Chest Non Tender, No Accessory Muscle Use, No Respiratory Distress, Decreased Breath Sounds (RLL) Cardiovascular: Regular Rate, Rhythm, No Gallop, No JVD, No Murmur, Normal Peripheral Pulses Extremity: Pedal Edema Neurologic/Psychiatric: Alert, Oriented x3, No Motor/Sensory Deficits, Normal Mood/Affect Results/Procedures Lab Laboratory Tests 11/06/19 04:45 Patient resulted labs reviewed. Assessment/Plan Assessment and Plan Assess & Plan/Chief Complaint Assessment: Bilateral pulmonary emboli Left lower extremity DVT acute New onset atrial fibrillation with rapid ventricular response s/p Cardizem drip History of melanoma 1996 status post resection right lower leg at [facility] at 37 years old Hypertension Elevated troponin due to Type II NSTEMI Elevated BNP Cardiomyopathy EF 20% with normal cath no ischemic cause Right-sided pleural effusion Right-sided pneumonia on Zosyn Hypoxia Tachycardia Low albumin Hypokalemia Edema Plan: Lovenox therapeutic dosing Supportive care IV antibiotics Oxygen wean Lifevest at DC Cardiology consult General surgery consult Monitor closely Entresto Oxygen wean Appreciate Dr. Winston Diagnosis/Problems Diagnosis/Problems (1) Bilateral pulmonary embolism (2) Acute CHF Status: Acute Qualifiers: Heart failure type: unspecified Qualified Codes: I50.9 - Heart failure, unspecified (3) Atrial fibrillation with rapid ventricular response Status: Acute (4) Acute cor pulmonale Status: Acute (5) Anxiety (6) Abnormal albumin (7) Elevated troponin (8) History of melanoma (9) Left leg DVT (10) Elevated brain natriuretic peptide (BNP) level (11) Cardiomyopathy (12) S/P cardiac cath Clinical Quality Measures DVT/VTE Risk/Contraindication: Risk Factor Score Per Nursin RFS Level Per Nursing on Admit: 4+=Very High PATY MENDOZA DO Nov 06, 2019 12:57
--- NOTE | 2019-11-06 15:46 | Cardiology Progress Note ---
Cardiology SOAP Progress Note Subjective: Significantly improved shortness of breath. Objective: I&O/Vital Signs 11/06/19 11/06/19 11/06/19 11/06/19 04:05 07:00 08:00 09:00 Temp 36.6 36.5 Pulse 78 107 70 Resp 18 20 B/P (MAP) 102/82 (89) 101/70 (80) Pulse Ox 96 96 96 O2 Delivery Room Air Room Air 11/06/19 11/06/19 12:00 13:00 Temp 36.4 Pulse 91 96 Resp 20 B/P (MAP) 115/75 (88) Pulse Ox 96 O2 Delivery Room Air 11/06/19 00:00 Intake Total 1290 ml Output Total 1950 ml Balance -660 ml Constitutional: appears stated age, AAO x 3 Respiratory: chest is bilaterally symmetric, other (decreased air entry bilaterally) Cardiovascular: irregularly irregular, S1 and S2 Gastrointestional: soft, audible bowel sounds; No spleenomegaly Extremities: normal range of motion, non-tender, normal inspection; No clubbing, No cyanosis; no lower extremity edema bilateral; No significant edema Neurologic/Psychiatric: no motor/sensory deficits, alert, normal mood/affect, oriented x 3, power is 5/5 both on sides Skin: normal color, warm/dry; No rash, No ulcerations Results/Procedures: Labs Laboratory Tests 11/05/19 16:34: Glucometer 119H 11/05/19 20:12: Glucometer 136H 11/06/19 04:45: White Blood Count 10.8, Red Blood Count 5.44, Hemoglobin 16.2, Hematocrit 50, Mean Corpuscular Volume 92, Mean Corpuscular Hemoglobin 30, Mean Corpuscular Hemoglobin Concent 33, Red Cell Distribution Width 14.7H, Platelet Count 319, Mean Platelet Volume 10.4, Neutrophils (%) (Auto) 71, Lymphocytes (%) (Auto) 19, Monocytes (%) (Auto) 6, Eosinophils (%) (Auto) 4, Basophils (%) (Auto) 0, Neutrophils # (Auto) 7.6, Lymphocytes # (Auto) 2.1, Monocytes # (Auto) 0.6, Eosinophils # (Auto) 0.4H, Basophils # (Auto) 0.0, Sodium Level 141, Potassium Level 3.6, Chloride Level 102, Carbon Dioxide Level 25, Anion Gap 14, Blood Urea Nitrogen 19H, Creatinine 1.02, Estimat Glomerular Filtration Rate > 60, BUN/Creatinine Ratio 19, Glucose Level 117H, Calcium Level 8.6, Corrected Calcium 9.5, Total Bilirubin 1.3H, Aspartate Amino Transf (AST/SGOT) 44H, Alanine Aminotransferase (ALT/SGPT) 48, Alkaline Phosphatase 61, Total Protein 6.3L, Albumin 2.9L 11/06/19 05:46: Glucometer 113H Microbiology 11/01/19 MRSA Screen - Final, Complete MRSA not isolated 11/01/19 Blood Culture - Preliminary, Resulted No growth A/P: Assessment/Dx: Bilateral PE, Severe right-sided pneumonia, Non-STEMI, Atrial fibrillation with rapid ventricular rate, Severe cardiomyopathy Plan: Bilateral PE, ,Eliquis Positive DVT. Severe right-sided pneumonia, broad-spectrum antibiotics. Defer to the primary team. Non-STEMI, could be type II myocardial infarction secondary to severe systemic illness including bilateral PE and severe right-sided pneumonia. Coronary angiography done 11/04/2019 showed no CAD. Atrial fibrillation with more controlled ventricular rate., anticoagulation and rate control. IV amiodarone as well. Unlikely to convert till resolution of severe systemic illness. Change Cardizem to Lopressor. I spoke to him today about transesophageal echocardiogram assisted cardioversion. Patient was very hesitant to undergo cardioversion. Severe dilated nonischemic cardiomyopathy, new onset. Coronary angiography 11/04/2019 showed normal coronaries. treat for severe acute congestive heart lee lure and cardiomyopathy with IV Lasix. On Entresto and Lopressor. LifeVest for primary prevention of sudden cardiac . Still waiting for the LifeVest. Thank you for your consultation. Please call me if you have any questions. Bruce Fine MD, FACP, FACC, FSCAI, FHRS, CCDS Interventional Cardiology Cardiac Electrophysiology Vascular Medicine and Endovascular Interventions Vincent FINE MD Nov 06, 2019 15:46
[2019-11-06 16:57] VITALS: BP 100/75
[2019-11-06 20:12] VITALS: BP 107/73
[2019-11-07] VITALS (7 sets, daily range): BP systolic 92–115; BP diastolic 62–75
[2019-11-07 05:08] LABS: BASOPHILS % (AUTO) 0 % (0-10); EOSINOPHILS # (AUTO) 0.4 10^3/uL (0.0-0.3); EOSINOPHILS % (AUTO) 4 % (0-10); HEMATOCRIT 49 % (40-54); LYMPHOCYTES % (AUTO) 19 % (12-44); MEAN CORPUSCULAR HEMOGLOBIN 29 PG (25-34); MEAN CORPUSCULAR HGB CONC 33 G/DL (32-36); MEAN CORPUSCULAR VOLUME 90 FL (80-99); MEAN PLATELET VOLUME 9.9 FL (7.4-10.4); MONOCYTES # (AUTO) 0.7 X 10^3 (0.0-1.0); MONOCYTES % (AUTO) 7 % (0-12); NEUTROPHILS # (AUTO) 7.4 X 10^3 (1.8-7.8); NEUTROPHILS % (AUTO) 70 % (42-75); PLATELET COUNT 413 10^3/uL (130-400); RED CELL DISTRIBUTION WIDTH 14.1 % (10.0-14.5); WHITE BLOOD COUNT 10.5 10^3/uL (4.3-11.0)
[2019-11-07 05:33] LABS: ALANINE AMINOTRANSFERASE 40 U/L (0-55); ALBUMIN 2.9 GM/DL (3.2-4.5); ALKALINE PHOSPHATASE 61 U/L (40-136); BILIRUBIN,TOTAL 1.1 MG/DL (0.1-1.0); BUN/CREATININE RATIO 24; CALCIUM 8.6 MG/DL (8.5-10.1); CARBON DIOXIDE 25 MMOL/L (21-32); CHLORIDE 102 MMOL/L (98-107); CREATININE SERUM 0.89 MG/DL (0.60-1.30); GFR ESTIMATED > 60; GLUCOSE 114 MG/DL (70-105); MAGNESIUM 1.4 MG/DL (1.6-2.4); POTASSIUM 3.3 MMOL/L (3.6-5.0); SODIUM 140 MMOL/L (135-145); TOTAL PROTEIN 6.2 GM/DL (6.4-8.2)
[2019-11-07] MEDS: FUROSEMIDE 40 MG/4 ML INJ (LASIX) IVP SCH ×2 (06:00→16:26)
[2019-11-07] MEDS: ENOXAPARIN 100 MG/1 ML (LOVENOX) SYR SC SCH (06:00)
--- NOTE | 2019-11-07 07:17 | Progress Note - Surgery ---
ARBEN SPRAGUE,MED STUDENT 11/07/19 0717: Subjective Date Seen by a Provider: Nov 07, 2019 Time Seen by a Provider: 06:37 Subjective/Events-last exam Patient seen and examined this morning. States he is breathing well and has been getting out of bed and moving more. He still has a productive cough. He states the edema in his legs is improving. Review of Systems General: No Chills, No Night Sweats, No Fatigue HEENT: No Head Aches, No Visual Changes; Sinus Congestion Pulmonary: No Dyspnea; Cough, Other (denies hemoptysis) Cardiovascular: Edema; No: Chest Pain, Palpitations Gastrointestinal: No: Nausea, Vomiting, Abdominal Pain, Diarrhea, Constipation Genitourinary: Frequency Objective Exam Vital Signs Date Time Temp Pulse Resp B/P (MAP) Pulse Ox O2 Delivery O2 Flow Rate FiO2 11/07/19 03:47 36.5 85 16 110/75 (87) 96 Room Air 11/07/19 00:43 94 11/07/19 00:05 36.5 70 24 103/64 (77) 93 Room Air 11/06/19 21:00 96 Room Air 11/06/19 20:12 36.4 62 18 107/73 (84) 95 Room Air 11/06/19 19:00 95 11/06/19 16:57 36.5 66 18 100/75 (83) 95 Room Air 11/06/19 13:00 96 11/06/19 12:00 36.4 91 20 115/75 (88) 96 Room Air 11/06/19 09:00 96 Room Air 11/06/19 08:00 36.5 70 20 101/70 (80) 96 I & O 11/07/19 07:00 Intake Total 1610 ml Output Total 550 ml Balance 1060 ml Capillary Refill : Less Than 3 Seconds General Appearance: No Apparent Distress, WD/WN HEENT: PERRL/EOMI, Moist Mucous Membranes; No Pharyngeal Erythema, No Scleral Icterus (L), No Scleral Icterus (R) Neck: Non Tender, Supple; No Lymphadenopathy (L), No Lymphadenopathy (R) Respiratory: Chest Non Tender, No Accessory Muscle Use, No Respiratory Distress, Crackles (Right lower lung) Cardiovascular: No Murmur, Irregularly Irregular Peripheral Pulses: 2+ Dorsalis Pedis (R), 2+ Left Dors-Pedis (L), 2+ Radial Pulses (R), 2+ Radial Pulses (L) Gastrointestinal: normal bowel sounds, non tender, soft; No distended Extremity: Pedal Edema Neurologic/Psychiatric: Alert, Oriented x3, No Motor/Sensory Deficits, Normal Mood/Affect Skin: Normal Color, Warm/Dry Results Lab Laboratory Tests 11/07/19 04:45: White Blood Count 10.5, Red Blood Count 5.46, Hemoglobin 16.0, Hematocrit 49, Mean Corpuscular Volume 90, Mean Corpuscular Hemoglobin 29, Mean Corpuscular Hemoglobin Concent 33, Red Cell Distribution Width 14.1, Platelet Count 413H, Mean Platelet Volume 9.9, Neutrophils (%) (Auto) 70, Lymphocytes (%) (Auto) 19, Monocytes (%) (Auto) 7, Eosinophils (%) (Auto) 4, Basophils (%) (Auto) 0, Neutrophils # (Auto) 7.4, Lymphocytes # (Auto) 2.0, Monocytes # (Auto) 0.7, Eosinophils # (Auto) 0.4H, Basophils # (Auto) 0.0, Sodium Level 140, Potassium Level 3.3L, Chloride Level 102, Carbon Dioxide Level 25, Anion Gap 13, Blood Urea Nitrogen 21H, Creatinine 0.89, Estimat Glomerular Filtration Rate > 60, BUN/Creatinine Ratio 24, Glucose Level 114H, Calcium Level 8.6, Corrected Calcium 9.5, Magnesium Level 1.4L, Total Bilirubin 1.1H, Aspartate Amino Transf (AST/SGOT) 31, Alanine Aminotransferase (ALT/SGPT) 40, Alkaline Phosphatase 61, Total Protein 6.2L, Albumin 2.9L Microbiology 11/01/19 MRSA Screen - Final, Complete MRSA not isolated 11/01/19 Blood Culture - Final, Complete No growth Assessment/Plan Assessment/Plan Assessment/Plan Assessment: Bilateral PE Right pleural effusion Pneumonia of right lung Dilated Cardiomyopathy Plan: -Continue with medical management -We will continue to follow patients respiratory status, it appears stable for now Clinical Quality Measures DVT/VTE Risk/Contraindication: Risk Factor Score Per Nursin RFS Level Per Nursing on Admit: 4+=Very High ROCKY JENKINS DO 11/07/19 1302: Subjective Time Seen by a Provider: 12:46 Subjective/Events-last exam Pt seen and examined, sitting in chair eating lunch in no acute distress. Objective Exam Respiratory: No Accessory Muscle Use, No Respiratory Distress, Crackles (Right lower lung), Decreased Breath Sounds (right compared to left) Cardiovascular: No Murmur, Irregularly Irregular Gastrointestinal: non tender, soft; No distended Assessment/Plan Assessment/Plan Assessment/Plan Right Pleural Effusion - it appears pt is doing fine and will not need Thoracentesis. I will sign off and can reconsult if needed. Supervisory-Addendum Brief Verification & Attestation Participated in pt care: history, MDM, physical Personally performed: exam, history, MDM Care discussed with: Medical Student Procedures: n/a Verification and Attestation of Medical Student E/M Service A medical student performed and documented this service in my presence. I reviewed and verified all information documented by the medical student and made modifications to such information, when appropriate. I personally performed the physical exam and medical decision making. Rocky Jenkins, Nov 07, 2019,13:02 ARBEN SPRAGUE,MED STUDENT Nov 07, 2019 07:17 ROCKY JENKINS DO Nov 07, 2019 13:02
--- NOTE | 2019-11-07 09:13 | Diagnostic Imaging Report ---
INDICATION: Effusion. TIME OF EXAMINATION: 9:11 AM. COMPARISON: 11/03/2019. FINDINGS: The heart is enlarged. There has been improved aeration to the right base since the prior study. There continues to be a small to moderate right effusion with some associated atelectasis in the right base. Otherwise, the lungs are clear. The pulmonary vascularity is normal. There is no pneumothorax. IMPRESSION: Overall improved aeration to the right base when compared with the exam of 4 days earlier. There continues to be some right basilar atelectasis and a small to moderate right effusion. Dictated by: Dictated on workstation # [id number]
--- NOTE | 2019-11-07 09:26 | Progress Note ---
Subjective Date Seen by a Provider: Nov 07, 2019 Time Seen by a Provider: 09:15 Subjective/Events-last exam Pt doing a lot better. Weaned completely off oxygen now. Conferred with Dr. Carney and Dr. Winston and we will stop the Lovenox and start Eliquis of 10 Mg today at 5 PM. Low potassium at 3.3 but he really does not want to take the supplement. Lower extremity edema is much improved. Life vest has yet to arrive. Appreciate cardiology, pulmonology and hematology. I will see him in follow-up because of the extensiveness of his critical illness recently. BP is a bit low so will evaluate whether or not we will give the diuretics or not. Review of Systems General: Fatigue Pulmonary: Dyspnea Cardiovascular: Edema Objective Exam Last Set of Vital Signs Vital Signs Date Time Temp Pulse Resp B/P (MAP) Pulse Ox O2 Delivery O2 Flow Rate FiO2 11/07/19 07:00 115 11/07/19 03:47 36.5 16 110/75 (87) 96 Room Air 11/04/19 09:40 21 11/03/19 14:00 2.00 Capillary Refill : Less Than 3 Seconds I&O Intake and Output 11/07/19 00:00 Intake Total 1660 ml Output Total 550 ml Balance 1110 ml Intake Oral 1420 ml IV Total 240 ml Output Urine Total 550 ml # Voids 7 # Bowel Movements 8 General: Alert, Oriented X3, Cooperative, No Acute Distress Lungs: Clear to Auscultation, Normal Air Movement, Other (decreased RLL) Heart: Regular Rate, Normal S1, Normal S2, No Murmurs Neuro: Normal Gait, Normal Speech, Strength at 5/5 X4 Ext, Normal Tone Results Lab Laboratory Tests 11/07/19 04:45: White Blood Count 10.5, Red Blood Count 5.46, Hemoglobin 16.0, Hematocrit 49, Mean Corpuscular Volume 90, Mean Corpuscular Hemoglobin 29, Mean Corpuscular Hemoglobin Concent 33, Red Cell Distribution Width 14.1, Platelet Count 413H, Me an Platelet Volume 9.9, Neutrophils (%) (Auto) 70, Lymphocytes (%) (Auto) 19, Monocytes (%) (Auto) 7, Eosinophils (%) (Auto) 4, Basophils (%) (Auto) 0, Neutrophils # (Auto) 7.4, Lymphocytes # (Auto) 2.0, Monocytes # (Auto) 0.7, Eosinophils # (Auto) 0.4H, Basophils # (Auto) 0.0, Sodium Level 140, Potassium Level 3.3L, Chloride Level 102, Carbon Dioxide Level 25, Anion Gap 13, Blood Urea Nitrogen 21H, Creatinine 0.89, Estimat Glomerular Filtration Rate > 60, BUN/Creatinine Ratio 24, Glucose Level 114H, Calcium Level 8.6, Corrected Calcium 9.5, Magnesium Level 1.4L, Total Bilirubin 1.1H, Aspartate Amino Transf (AST/SGOT) 31, Alanine Aminotransferase (ALT/SGPT) 40, Alkaline Phosphatase 61, Total Protein 6.2L, Albumin 2.9L Microbiology 11/01/19 MRSA Screen - Final, Complete MRSA not isolated 11/01/19 Blood Culture - Final, Complete No growth Assessment/Plan Assessment/Plan Assess & Plan/Chief Complaint Assessment: Bilateral pulmonary emboli Left lower extremity DVT acute New onset atrial fibrillation with rapid ventricular response s/p Cardizem drip History of melanoma 1995 status post resection right lower leg at [facility] at 37 years old Hypertension Elevated troponin due to Type II NSTEMI Elevated BNP Cardiomyopathy EF 20% with normal cath no ischemic cause Right-sided pleural effusion Right-sided pneumonia on Zosyn Hypoxia Tachycardia Low albumin Hypokalemia Edema Plan: Lovenox therapeutic dosing transition to Eliquis Supportive care IV antibiotics completed Oxygen weaned Lifevest at DC Cardiology consult General surgery consult Monitor closely Entresto Oxygen wean Appreciate Dr. Winston Diagnosis/Problems Diagnosis/Problems (1) Bilateral pulmonary embolism (2) Acute CHF Status: Acute Qualifiers: Qualified Codes: I50.9 - Heart failure, unspecified (3) Atrial fibrillation with rapid ventricular response Status: Acute (4) Acute cor pulmonale Status: Acute (5) Anxiety (6) Abnormal albumin (7) Elevated troponin (8) History of melanoma (9) Left leg DVT (10) Elevated brain natriuretic peptide (BNP) level (11) Cardiomyopathy (12) S/P cardiac cath Clinical Quality Measures DVT/VTE Risk/Contraindication: Risk Factor Score Per Nursin RFS Level Per Nursing on Admit: 4+=Very High PATY MENDOZA DO Nov 07, 2019 09:26
--- NOTE | 2019-11-07 09:39 | NUR ---
Dr. Fine contacted about morning medications, VS given. Instructed to give 1/2 (25mg) dose of metoprolol this AM.
[2019-11-07] MEDS: SACUBITRIL/VALSARTAN 24/26 MG (ENTRESTO) TABLET PO SCH ×2 (09:48→20:45)
[2019-11-07] MEDS: PANTOPRAZOLE 40 MG (PROTONIX) TAB PO SCH (09:48)
[2019-11-07] MEDS: RT-ALBUTEROL/IPRATROPIUM 3 ML (DUONEB) VIAL INH SCH (09:48)
[2019-11-07] MEDS: KCL 20 MEQ TAB (K-DUR) PO NR ×2 (10:02→10:11)
--- NOTE | 2019-11-07 10:02 | NUR ---
Pharmacy consulted per Dr. Hightower's request for explanation of PO potassium administration. Pt is refusing PO K+ because he is afraid it will burn. Sadi is going to speak to the pt
--- NOTE | 2019-11-07 12:22 | Cardiology Progress Note ---
Cardiology SOAP Progress Note Subjective: Significantly improved shortness of breath. Objective: I&O/Vital Signs 11/07/19 11/07/19 11/07/19 11/07/19 00:43 03:47 07:00 09:48 Temp 36.5 Pulse 94 85 115 Resp 16 B/P (MAP) 110/75 (87) Pulse Ox 96 98 O2 Delivery Room Air Room Air 11/07/19 12:16 Pulse 104 11/07/19 00:00 Intake Total 1140 ml Output Total 550 ml Balance 590 ml Constitutional: appears stated age, AAO x 3 Respiratory: chest is bilaterally symmetric, other (decreased air entry bilaterally) Cardiovascular: irregularly irregular, S1 and S2 Gastrointestional: soft, audible bowel sounds; No spleenomegaly Extremities: normal range of motion, non-tender, normal inspection; No clubbing, No cyanosis; no lower extremity edema bilateral; No significant edema Neurologic/Psychiatric: no motor/sensory deficits, alert, normal mood/affect, oriented x 3, power is 5/5 both on sides Skin: normal color, warm/dry; No rash, No ulcerations Results/Procedures: Labs Laboratory Tests 11/07/19 04:45: White Blood Count 10.5, Red Blood Count 5.46, Hemoglobin 16.0, Hematocrit 49, Mean Corpuscular Volume 90, Mean Corpuscular Hemoglobin 29, Mean Corpuscular Hemoglobin Concent 33, Red Cell Distribution Width 14.1, Platelet Count 413H, Mean Platelet Volume 9.9, Neutrophils (%) (Auto) 70, Lymphocytes (%) (Auto) 19, Monocytes (%) (Auto) 7, Eosinophils (%) (Auto) 4, Basophils (%) (Auto) 0, Neutrophils # (Auto) 7.4, Lymphocytes # (Auto) 2.0, Monocytes # (Auto) 0.7, Eosinophils # (Auto) 0.4H, Basophils # (Auto) 0.0, Sodium Level 140, Potassium Level 3.3L, Chloride Level 102, Carbon Dioxide Level 25, Anion Gap 13, Blood Urea Nitrogen 21H, Creatinine 0.89, Estimat Glomerular Filtration Rate > 60, BUN/Creatinine Ratio 24, Glucose Level 114H, Calcium Level 8.6, Corrected Calcium 9.5, Magnesium Level 1.4L, Total Bilirubin 1.1H, Aspartate Amino Transf (AST/SGOT) 31, Alanine Aminotransferase (ALT/SGPT) 40, Alkaline Phosphatase 61, Total Protein 6.2L, Albumin 2.9L 11/07/19 11:32: Glucometer 105 Microbiology 11/01/19 MRSA Screen - Final, Complete MRSA not isolated 11/01/19 Blood Culture - Final, Complete No growth A/P: Assessment/Dx: Bilateral PE, Severe right-sided pneumonia, Non-STEMI, Atrial fibrillation with rapid ventricular rate, Severe cardiomyopathy Plan: Bilateral PE, ,Eliquis Positive DVT. Severe right-sided pneumonia, broad-spectrum antibiotics. Defer to the primary team. Non-STEMI, could be type II myocardial infarction secondary to severe systemic illness including bilateral PE and severe right-sided pneumonia. Coronary angiography done 11/04/2019 showed no CAD. Atrial fibrillation with more controlled ventricular rate., anticoagulation and rate control. IV amiodarone as well. Unlikely to convert till resolution of severe systemic illness. Change Cardizem to Lopressor. I spoke to him today about transesophageal echocardiogram assisted cardioversion. Patient was very hesitant to undergo cardioversion. I asked the patient again today and he is refusing cardioversion. Severe dilated nonischemic cardiomyopathy, new onset. Coronary angiography 11/04/2019 showed normal coronaries. treat for severe acute congestive heart failure and cardiomyopathy with IV Lasix. On Entresto and Lopressor. LifeVest for primary prevention of sudden cardiac . Still waiting for the LifeVest. Thank you for your consultation. Please call me if you have any questions. Bruce Fine MD, FACP, FACC, FSCAI, FHRS, CCDS Interventional Cardiology Cardiac Electrophysiology Vascular Medicine and Endovascular Interventions Vincent FINE MD Nov 07, 2019 12:22
--- NOTE | 2019-11-07 13:06 | NUR ---
provided prayer and Communion.
--- NOTE | 2019-11-07 13:30 | NUR ---
JANIE/KACEY spoke with Bonifacio with the [employer] this a.m. 11/07/19. He states that the patient filled out the application for assistance over the weekend and they should contact the patient today. The patient states that he believes the company tried to call him but he was busy with other calls. JANIE/SS gave the patient ss email to collect pay stubs to send to Bonifacio. JANIE/SS will follow up with the patient later this afternoon to check on status.
--- NOTE | 2019-11-07 13:42 | Occupational Ther Daily Note ---
OT Current Status-Daily Note Subjective Pt alert, sitting in recliner. Pt agrees to therapy. SW states that pt is waiting on Life Vest prior to discharge. Pt stated that he will not be discharging until tomorrow. Mental Status/Objective Patient Orientation: Person, Place, Time, Situation Attachments: Telemetry ADL-Treatment Therapy Code Descriptions/Definitions Functional Prentiss Measure: 0=Not Assessed/NA 4=Minimal Assistance 1=Total Assistance 5=Supervision or Setup 2=Maximal Assistance 6=Modified Prentiss 3=Moderate Assistance 7=Complete IndependenceSCALE: Activities may be completed with or without assistive devices. 9-Xnjggifcnu-kkmsuzf completes the activity by him/herself with no assistance from a helper. 5-Set-up or Clean-up Assistance-helper sets up or cleans up; patient completes activity. Noti assists only prior to or following the activity. 4-Supervision or Touching Assistance-helper provides verbal cues and/or touching/steadying and/or contact guard assistance as patient completes activity. Assistance may be provided throughout the activity or intermittently. 3-Partial/Moderate Assistance-helper does LESS THAN HALF the effort. Noti lifts, holds or supports trunk or limbs, but provides less than half the effort. 2-Substantial/Maximal Assistance-helper does MORE THAN HALF the effort. Noti lifts or holds trunk or limbs and provides more than half the effort. 8-Tkjefpajl-kwhgrq does ALL the effort. Patient does none of the effort to complete the activity. Or, the assistance of 2 or more helpers is required for the patient to complete the activity. If activity was not attempted, code reason: 7-Patient Refused. 9-Not Applicable-not attempted and the patient did not perform the activity before the current illness, exacerbation or injury. 10-Not Attempted due to Environmental Limitations-(lack of equipment, weather restraints, etc.). 88-Not Attempted due to Medical Conditions or Safety Concerns. Other Treatment Pt completed 3 UE exercises against gravity to increase strength and activity tolerance for daily functional activities. Attempted to get pt to complete 3 sets of exercises, pt stated that it was too much. Pt completed shldr flexion, shldr elevation and bicep curls 2 sets 15 reps. After therapy, pt sitting in recliner with call light/phone in reach. All needs met in room. OT Driller Helper Goals Mcc Goals Time Frame: Nov 10, 2019 Eating (QC): 6 Oral Hygiene (QC): 6 Toileting Hygiene (QC): 6 Shower/Bathe Self (QC): 6 Upper Body Dressing (QC): 6 Lower Body Dressing (QC): 6 On/Off Footwear (QC): 6 Additional Goals: 1-Demonstrate ADL Tasks, 2-Verbalize Understanding, 3- ImproveStrength/Jagruti 1=Demonstrate adherence to instructed precautions during ADL tasks. 2=Patient will verbalize/demonstrate understanding of assistive devices/modifications for ADL. 3=Patient will improve strength/tolerance for activity to enable patient to perform ADL's. OT Education/Plan Problem List/Assessment Assessment: Decreased Activ Tolerance, Decreased UE Strength Due to weakness and SOA, pt. would benefit from skilled OT to continue addressing strength and independence for daily tasks. Discharge Recommendations Plan/Recommendations: Continue POC Treatment Plan/Plan of Care Patient would benefit from OT for education, treatment and training to promote independence in ADL's, mobility, safety and/or upper extremity function for ADL's. Plan of Care: ADL Retraining, Functional Mobility, UE Funct Exercise/Act Treatment Duration: Nov 10, 2019 Frequency: 5 times per week Estimated Hrs Per Day: .25 hour per day Agreement: Yes Rehab Potential: Good Time/GCodes Start Time: 13:27 Stop Time: 13:37 Total Time Billed (hr/min): 10 Billed Treatment Time 1 visit-EX 1 (10 min) KAE FUNEZ Nov 07, 2019 13:42
--- NOTE | 2019-11-07 15:35 | Pulmonary Progress Note ---
Subjective Time Seen by a Provider: 15:35 Subjective/Events-last exam NO complications noted. Sepsis Event Evaluation Height, Weight, BMI Height: '" Weight: lbs. oz. kg; 34.00 BMI Method: Exam Exam Vital Signs Date Time Temp Pulse Resp B/P (MAP) Pulse Ox O2 Delivery O2 Flow Rate FiO2 11/07/19 12:16 104 11/07/19 12:00 36.5 82 20 104/62 (76) 93 Room Air 11/07/19 09:48 98 Room Air 11/07/19 09:00 Room Air 11/07/19 08:00 36.5 65 20 97/67 (77) 96 Room Air 11/07/19 07:00 115 11/07/19 03:47 36.5 85 16 110/75 (87) 96 Room Air 11/07/19 00:43 94 11/07/19 00:05 36.5 70 24 103/64 (77) 93 Room Air 11/06/19 21:00 96 Room Air 11/06/19 20:12 36.4 62 18 107/73 (84) 95 Room Air 11/06/19 19:00 95 11/06/19 16:57 36.5 66 18 100/75 (83) 95 Room Air I & O 11/07/19 07:00 Intake Total 1610 ml Output Total 550 ml Balance 1060 ml Height & Weight Height: '" Weight: lbs. oz. kg; 34.00 BMI Method: General Appearance: No Apparent Distress, WD/WN HEENT: PERRL/EOMI, Moist Mucous Membranes; No Pharyngeal Erythema, No Scleral Icterus (L), No Scleral Icterus (R) Neck: Non Tender, Supple; No Lymphadenopathy (L), No Lymphadenopathy (R) Respiratory: No Accessory Muscle Use, No Respiratory Distress, Crackles (Right lower lung), Decreased Breath Sounds (right compared to left) Cardiovascular: No Murmur, Irregularly Irregular Capillary Refill: Less Than 3 Seconds Peripheral Pulses: 2+ Dorsalis Pedis (R), 2+ Left Dors-Pedis (L), 2+ Radial Pulses (R), 2+ Radial Pulses (L) Gastrointestinal: non tender, soft; No distended Extremity: Pedal Edema Neurologic/Psychiatric: Alert, Oriented x3, No Motor/Sensory Deficits, Normal Mood/Affect Skin: Normal Color, Warm/Dry Results Lab Laboratory Tests 11/06/19 04:45 11/07/19 04:45 Assessment/Plan Assessment/Plan Acute bilateral provoked PE with right pleural effusion -Sp02 is 96% on RA -Eliquis started -CXR shows improvement. -Pt is doing well from pulmonary standpoint. I am going to sign off. Please call with any questions or concerns. Cardiomyopathy with EF of 20% -Cardiology following -Lasix LL Ext DVT Afib Hx of melanoma 1995 HTN HENRIETTA RYAN DO Nov 07, 2019 15:35
[2019-11-07] MEDS ORDERED: KCL 20 MEQ TAB (K-DUR) PO NR (15:45)
--- NOTE | 2019-11-07 16:23 | NUR ---
CM/SS visit with patient and sat in the room while he made the call to the [employer]. The [employer] stated the only thing they needed for the application was the patients pay check stubs. CM/SS faxed the pay check stub that was received through email. The patient reports he sent two pay check stubs but only one is found. CM/SS will send Bonifacio the pay check stub as well. Will continue to follow.
[2019-11-07] MEDS: APIXABAN 5 MG (ELIQUIS) TABLET PO SCH (16:26)
[2019-11-07] MEDS: MAGNESIUM 1 GM/100 ML IVPB 100 ML IV SCH ×2 (16:26→17:57)
[2019-11-08 04:35] VITALS: BP 107/76
[2019-11-08 05:23] LABS: BASOPHILS % (AUTO) 0 % (0-10); EOSINOPHILS # (AUTO) 0.3 10^3/uL (0.0-0.3); EOSINOPHILS % (AUTO) 3 % (0-10); HEMATOCRIT 49 % (40-54); HEMOGLOBIN 15.6 G/DL (13.3-17.7); LYMPHOCYTES # (AUTO) 2.1 X 10^3 (1.0-4.0); LYMPHOCYTES % (AUTO) 20 % (12-44); MEAN CORPUSCULAR HEMOGLOBIN 29 PG (25-34); MEAN CORPUSCULAR HGB CONC 32 G/DL (32-36); MEAN CORPUSCULAR VOLUME 91 FL (80-99); MEAN PLATELET VOLUME 10.1 FL (7.4-10.4); MONOCYTES # (AUTO) 0.7 X 10^3 (0.0-1.0); MONOCYTES % (AUTO) 6 % (0-12); NEUTROPHILS # (AUTO) 7.6 X 10^3 (1.8-7.8); NEUTROPHILS % (AUTO) 71 % (42-75); PLATELET COUNT 412 10^3/uL (130-400); WHITE BLOOD COUNT 10.8 10^3/uL (4.3-11.0)
[2019-11-08 05:47] LABS: ALANINE AMINOTRANSFERASE 35 U/L (0-55); ALKALINE PHOSPHATASE 66 U/L (40-136); BILIRUBIN,TOTAL 0.9 MG/DL (0.1-1.0); BUN/CREATININE RATIO 29; CALCIUM 8.7 MG/DL (8.5-10.1); CARBON DIOXIDE 24 MMOL/L (21-32); CHLORIDE 103 MMOL/L (98-107); CREATININE SERUM 0.96 MG/DL (0.60-1.30); GFR ESTIMATED > 60; GLUCOSE 103 MG/DL (70-105); POTASSIUM 3.8 MMOL/L (3.6-5.0); SODIUM 140 MMOL/L (135-145); TOTAL PROTEIN 6.5 GM/DL (6.4-8.2)
[2019-11-08] MEDS: FUROSEMIDE 40 MG/4 ML INJ (LASIX) IVP SCH ×2 (06:09→17:50)
[2019-11-08] MEDS ORDERED: FURO-124 PO (08:23)
[2019-11-08] MEDS ORDERED: METO-387 PO (08:23)
[2019-11-08] MEDS ORDERED: SACU1TAB7 PO (08:23)
[2019-11-08] MEDS ORDERED: APIX5TAB PO (08:23)
--- NOTE | 2019-11-08 08:24 | Discharge Summary ---
Diagnosis/Chief Complaint Date of Admission Nov 01, 2019 at 13:40 Date of Discharge Discharge Diagnosis Assessment: Bilateral pulmonary emboli Left lower extremity DVT acute New onset atrial fibrillation with rapid ventricular response s/p Cardizem drip History of melanoma 1996 status post resection right lower leg at [facility] at 37 years old Hypertension Elevated troponin due to Type II NSTEMI Elevated BNP Cardiomyopathy EF 20% with normal cath no ischemic cause Right-sided pleural effusion Right-sided pneumonia on Zosyn Hypoxia Tachycardia Low albumin Hypokalemia Edema Plan: Lovenox therapeutic dosing transition to Eliquis Supportive care IV antibiotics completed Oxygen weaned [facility] at [place] Cardiology consult General surgery consult Monitor closely Entresto Oxygen wean Appreciate Dr. Winston Discharge Summary Discharge Physical Examination Allergies: Coded Allergies: No Known Drug Allergies (Unverified , 11/01/19) Vitals & I&Os Vital Signs Date Time Temp Pulse Resp B/P (MAP) Pulse Ox O2 Delivery O2 Flow Rate FiO2 11/08/19 15:44 11/08/19 12:45 36.4 86 20 97 Room Air 11/04/19 09:40 21 11/03/19 14:00 2.00 General Appearance: Alert, Oriented X3, Cooperative Respiratory: Clear to Auscultation, Other (decreased BS RLL) Cardiovascular: Regular Rate Abdominal: Normal Bowel Sounds Psych/Mental Status: Mental Status NL Hospital Course Was the Problem List Reviewed?: Yes Hospital Course: Pt had a lengthy hospital course for one week after her presented with hypoxia and SOB with anasarca and pleural effusion found to have B/L pulmonary emboli, ultrasound showed left lower extremity DVT along with pneumonia and.acute exacerbation of new onset heart failure with elevated BNP. He was seen by cardiology, new onset AF was managed with Cardizem. Pt was placed on Lovenox therapeutic dose, and underwent cardiac cath revealed no evidence of the source of the cardiomyopathy ejection fraction of 20%. Life vest was placed, Eliquis maintained, Entresto was also prescribed at [place] with close follow up with me on Thursday. Labs (last 24 hrs) Laboratory Tests 11/01/19 12:08: White Blood Count 13.0H, Red Blood Count 5.42, Hemoglobin 16.2, Hematocrit 49, Mean Corpuscular Volume 90, Mean Corpuscular Hemoglobin 30, Mean Corpuscular Hemoglobin Concent 33, Red Cell Distribution Width 13.7, Platelet Count 376, Mean Platelet Volume 10.5H, Neutrophils (%) (Auto) 81H, Lymphocytes (%) (Auto) 12, Monocytes (%) (Auto) 7, Eosinophils (%) (Auto) 1, Basophils (%) (Auto) 0, Neutrophils # (Auto) 10.5H, Lymphocytes # (Auto) 1.5, Monocytes # (Auto) 0.9, Eosinophils # (Auto) 0.1, Basophils # (Auto) 0.0, Prothrombin Time 16.3H, INR Comment 1.3, Activated Partial Thromboplast Time 37H, Sodium Level 140, Potassium Level 3.3L, Chloride Level 103, Carbon Dioxide Level 21, Anion Gap 16H , Blood Urea Nitrogen 13, Creatinine 0.82, Estimat Glomerular Filtration Rate > 60, BUN/Creatinine Ratio 16, Glucose Level 139H, Calcium Level 8.9, Corrected Calcium 9.5, Magnesium Level 1.6, Total Bilirubin 2.7H, Aspartate Amino Transf (AST/SGOT) 26, Alanine Aminotransferase (ALT/SGPT) 32, Alkaline Phosphatase 78, Myoglobin 55.5, Troponin I 0.040H, B-Type Natriuretic Peptide 1255.4H, Total Protein 6.6, Albumin 3.3, Thyroid Stimulating Hormone (TSH) 0.92, Free Thyroxine 1.27 11/01/19 13:25: Urine Opiates Screen NEGATIVE, Urine Oxycodone Screen NEGATIVE, Urine Methadone Screen NEGATIVE, Urine Propoxyphene Screen NEGATIVE, Urine Barbiturates Screen NEGATIVE, Ur Tricyclic Antidepressants Screen NEGATIVE, Urine Phencyclidine Screen NEGATIVE, Urine Amphetamines Screen NEGATIVE, Urine Methamphetamines Screen NEGATIVE, Urine Benzodiazepines Screen NEGATIVE, Urine Cocaine Screen NEGATIVE, Urine Cannabinoids Screen NEGATIVE 11/01/19 14:50: Lactic Acid Level 1.94 11/01/19 15:15: Blood Gas Puncture Site R RADIAL, Blood Gas Patient Temperature 36.4, Arterial Blood pH 7.50H, Arterial Blood Partial Pressure CO2 29L, Arterial Blood Partial Pressure O2 84, Arterial Blood HCO3 23, Arterial Blood Total CO2 23.4, Arterial Blood Oxygen Saturation 98, Arterial Blood Base Excess -0.5, Benjamin Test YES-POS, Blood Gas Ventilator Setting NO, Blood Gas Inspired Oxygen 2 11/01/19 20:46: Glucometer 182H 11/02/19 03:37: White Blood Count 11.0, Red Blood Count 5.02, Hemoglobin 14.8, Hematocrit 46, Mean Corpuscular Volume 91, Mean Corpuscular Hemoglobin 30, Mean Corpuscular Hemoglobin Concent 33, Red Cell Distribution Width 13.6, Platelet Count 374, Mean Platelet Volume 11.0H, Neutrophils (%) (Auto) 82H, Lymphocytes (%) (Auto) 11L, Monocytes (%) (Auto) 7, Eosinophils (%) (Auto) 1, Basophils (%) (Auto) 0, Neutrophils # (Auto) 9.0H, Lymphocytes # (Auto) 1.2, Monocytes # (Auto) 0.7, Eosinophils # (Auto) 0.1, Basophils # (Auto) 0.0, Sodium Level 139, Potassium Level 3.6, Chloride Level 107, Carbon Dioxide Level 17L, Anion Gap 15H, Blood Urea Nitrogen 17, Creatinine 0.86, Estimat Glomerular Filtration Rate > 60, BUN/Creatinine Ratio 20, Glucose Level 169H, Calcium Level 8.7, Corrected Calcium 9.5, Phosphorus Level 3.8, Magnesium Level 1.9, Total Bilirubin 1.8H, Aspartate Amino Transf (AST/SGOT) 39H, Alanine Aminotransferase (ALT/SGPT) 32, Alkaline Phosphatase 82, Total Protein 6.4, Albumin 3.0L, Triglycerides Level 79, Cholesterol Level 109, LDL Cholesterol Direct 94, VLDL Cholesterol 16, HDL Cholesterol 17L 11/02/19 11:31: Glucometer 166H 11/02/19 15:29: Glucometer 146H 11/02/19 20:42: Glucometer 124H 11/03/19 03:13: Sodium Level 140, Potassium Level 3.1L, Chloride Level 105, Carbon Dioxide Level 22, Anion Gap 13, Blood Urea Nitrogen 13, Creatinine 0.82, Estimat Glomerular Filtration Rate > 60, BUN/Creatinine Ratio 16, Glucose Level 123H, Calcium Level 8.3L, Phosphorus Level 3.3, Magnesium Level 1.5L 11/03/19 11:09: Glucometer 144H 11/03/19 15:36: Glucometer 139H 11/03/19 16:37: Sodium Level 142, Potassium Level 3.5L, Chloride Level 103, Carbon Dioxide Level 27, Anion Gap 12, Blood Urea Nitrogen 13, Creatinine 1.03, Estimat Glomerular Filtration Rate > 60, BUN/Creatinine Ratio 13, Glucose Level 112H, Calcium Level 8.3L, Phosphorus Level 2.1L, Magnesium Level 1.6 11/03/19 20:27: Glucometer 133H 11/04/19 03:58: Sodium Level 141, Potassium Level 3.3L, Chloride Level 103, Carbon Dioxide Level 24, Anion Gap 14, Blood Urea Nitrogen 15, Creatinine 0.92, Estimat Glomerular Filtration Rate > 60, BUN/Creatinine Ratio 16, Glucose Level 123H, Calcium Level 8.4L, White Blood Count 11.8H, Red Blood Count 5.31, Hemoglobin 15.7, Hematocrit 48, Mean Corpuscular Volume 90, Mean Corpuscular Hemoglobin 30, Mean Corpuscular Hemoglobin Concent 33, Red Cell Distribution Width 13.9, Platelet Count 367, Mean Platelet Volume 10.3, Neutrophils (%) (Auto) 76H, Lymphocytes (%) (Auto) 1 4, Monocytes (%) (Auto) 8, Eosinophils (%) (Auto) 2, Basophils (%) (Auto) 0, Neutrophils # (Auto) 9.0H, Lymphocytes # (Auto) 1.6, Monocytes # (Auto) 0.9, Eosinophils # (Auto) 0.3, Basophils # (Auto) 0.0, Prothrombin Time 16.7H, INR International Normalized Ratio 1.4H, Mix PT Patient/Normal 1:1 14.3, Mix PT Patient/Normal 1:1 Incubated 15.2, Mix PTT Patient/Normal 1:1 34.8, Mix PTT Patient/Normal 1:1 Incubat 39.4H, Thrombin Time 17.7, Lupus Anticoagulant APTT 41.0, Lupus Anticoagulant PTT Baseline 41.2H, Dil Jorge Viper Venom Time Screen 1.08, DRVVT Confirmation Interpretation , DRVVT Mixing Study , Hexagonal Phase Phospholipid Negative, Coagulation Factor Inhibitor Screen Equivocal, Anticoagulation Therapy Unknown, Corrected Calcium 9.4, Total Bilirubin 1.6H, Aspartate Amino Transf (AST/SGOT) 42H, Alanine Aminotransferase (ALT/SGPT) 58H, Alkaline Phosphatase 71, Total Protein 6.1L, Albumin 2.8L 11/04/19 07:45: Prothrombin Time 16.5H, INR Comment 1.3 11/04/19 13:56: Glucometer 102 11/04/19 16:36: Glucometer 125H 11/05/19 03:25: White Blood Count 11.1H, Red Blood Count 5.43, Hemoglobin 15.9, Hematocrit 49, Mean Corpuscular Volume 91, Mean Corpuscular Hemoglobin 29, Mean Corpuscular Hemoglobin Concent 32, Red Cell Distribution Width 14.1, Platelet Count 443H, Mean Platelet Volume 10.1, Neutrophils (%) (Auto) 71, Lymphocytes (%) (Auto) 20, Monocytes (%) (Auto) 6, Eosinophils (%) (Auto) 3, Basophils (%) (Auto) 0, Neutrophils # (Auto) 7.8, Lymphocytes # (Auto) 2.2, Monocytes # (Auto) 0.7, Eosinophils # (Auto) 0.3, Basophils # (Auto) 0.0, Sodium Level 142, Potassium Level 3.7, Chloride Level 102, Carbon Dioxide Level 25, Anion Gap 15H, Blood Urea Nitrogen 15, Creatinine 1.01, Estimat Glomerular Filtration Rate > 60, BUN/Creatinine Ratio 15, Glucose Level 118H, Calcium Level 8.5, Corrected Calcium 9.3, Total Bilirubin 1.5H, Aspartate Amino Transf (AST/SGOT) 48H, Alanine Aminotransferase (ALT/SGPT) 55, Alkaline Phosphatase 82, Total Protein 6.3L, Albumin 3.0L 11/05/19 11:21: Glucometer 111H 11/05/19 16:34: Glucometer 119H 11/05/19 20:12: Glucometer 136H 11/06/19 04:45: White Blood Count 10.8, Red Blood Count 5.44, Hemoglobin 16.2, Hematocrit 50, Mean Corpuscular Volume 92, Mean Corpuscular Hemoglobin 30, Mean Corpuscular Hemoglobin Concent 33, Red Cell Distribution Width 14.7H, Platelet Count 319, Mean Platelet Volume 10.4, Neutrophils (%) (Auto) 71, Lymphocytes (%) (Auto) 19, Monocytes (%) (Auto) 6, Eosinophils (%) (Auto) 4, Basophils (%) (Auto) 0, Neutrophils # (Auto) 7.6, Lymphocytes # (Auto) 2.1, Monocytes # (Auto) 0.6, Eosinophils # (Auto) 0.4H, Basophils # (Auto) 0.0, Sodium Level 141, Potassium Level 3.6, Chloride Level 102, Carbon Dioxide Level 25, Anion Gap 14, Blood Urea Nitrogen 19H, Creatinine 1.02, Estimat Glomerular Filtration Rate > 60, BUN/Creatinine Ratio 19, Glucose Level 117H, Calcium Level 8.6, Corrected Calcium 9.5, Total Bilirubin 1.3H, Aspartate Amino Transf (AST/SGOT) 44H, A lanine Aminotransferase (ALT/SGPT) 48, Alkaline Phosphatase 61, Total Protein 6.3L, Albumin 2.9L 11/06/19 05:46: Glucometer 113H 11/07/19 04:45: White Blood Count 10.5, Red Blood Count 5.46, Hemoglobin 16.0, Hematocrit 49, Mean Corpuscular Volume 90, Mean Corpuscular Hemoglobin 29, Mean Corpuscular Hemoglobin Concent 33, Red Cell Distribution Width 14.1, Platelet Count 413H, Mean Platelet Volume 9.9, Neutrophils (%) (Auto) 70, Lymphocytes (%) (Auto) 19, Monocytes (%) (Auto) 7, Eosinophils (%) (Auto) 4, Basophils (%) (Auto) 0, Neutrophils # (Auto) 7.4, Lymphocytes # (Auto) 2.0, Monocytes # (Auto) 0.7, Eosinophils # (Auto) 0.4H, Basophils # (Auto) 0.0, Sodium Level 140, Potassium Level 3.3L, Chloride Level 102, Carbon Dioxide Level 25, Anion Gap 13, Blood Urea Nitrogen 21H, Creatinine 0.89, Estimat Glomerular Filtration Rate > 60, BUN/Creatinine Ratio 24, Glucose Level 114H, Calcium Level 8.6, Corrected Calcium 9.5, Magnesium Level 1.4L, Total Bilirubin 1.1H, Aspartate Amino Transf (AST/SGOT) 31, Alanine Aminotransferase (ALT/SGPT) 40, Alkaline Phosphatase 61, Total Protein 6.2L, Albumin 2.9L 11/07/19 11:32: Glucometer 105 11/08/19 04:36: White Blood Count 10.8, Red Blood Count 5.39, Hemoglobin 15.6, Hematocrit 49, Mean Corpuscular Volume 91, Mean Corpuscular Hemoglobin 29, Mean Corpuscular Hemoglobin Concent 32, Red Cell Distribution Width 14.0, Platelet Count 412H, Mean Platelet Volume 10.1, Neutrophils (%) (Auto) 71, Lymphocytes (%) (Auto) 20, Monocytes (%) (Auto) 6, Eosinophils (%) (Auto) 3, Basophils (%) (Auto) 0, Neutrophils # (Auto) 7.6, Lymphocytes # (Auto) 2.1, Monocytes # (Auto) 0.7, Eosinophils # (Auto) 0.3, Basophils # (Auto) 0.0, Sodium Level 140, Potassium Level 3.8, Chloride Level 103, Carbon Dioxide Level 24, Anion Gap 13, Blood Urea Nitrogen 28H, Creatinine 0.96, Estimat Glomerular Filtration Rate > 60, BUN/Creatinine Ratio 29, Glucose Level 103, Calcium Level 8.7, Corrected Calcium 9.5, Total Bilirubin 0.9, Aspartate Amino Transf (AST/SGOT) 32, Alanine Aminotransferase (ALT/SGPT) 35, Alkaline Phosphatase 66, Total Protein 6.5, Albumin 3.0L Microbiology 11/01/19 MRSA Screen - Final, Complete MRSA not isolated 11/01/19 Blood Culture - Final, Complete No growth Pending Labs Microbiology Date/Time Source Procedure Growth Status 11/01/19 15:35 Nasal MRSA Screen - Final MRSA not isolated Complete 11/01/19 14:50 Peripheral Rt Hand Blood Culture - Final No growth Complete 11/01/19 14:16 Nasopharynx Influenza Types A,B Antigen (JENNIFER) - Final Complete 11/01/19 12:08 Peripheral Lt Ac Blood Culture - Final No growth Complete Laboratory Tests 11/01/19 12:08: White Blood Count 13.0, Red Blood Count 5.42, Hemoglobin 16.2, Hematocrit 49, Mean Corpuscular Volume 90, Mean Corpuscular Hemoglobin 30, Mean Corpuscular He moglobin Concent 33, Red Cell Distribution Width 13.7, Platelet Count 376, Mean Platelet Volume 10.5, Neutrophils (%) (Auto) 81, Lymphocytes (%) (Auto) 12, Monocytes (%) (Auto) 7, Eosinophils (%) (Auto) 1, Basophils (%) (Auto) 0, Neutrophils # (Auto) 10.5, Lymphocytes # (Auto) 1.5, Monocytes # (Auto) 0.9, Eosinophils # (Auto) 0.1, Basophils # (Auto) 0.0, Prothrombin Time 16.3, INR Comment 1.3, Activated Partial Thromboplast Time 37, Sodium Level 140, Potassium Level 3.3, Chloride Level 103, Carbon Dioxide Level 21, Anion Gap 16, Blood Urea Nitrogen 13, Creatinine 0.82, Estimat Glomerular Filtration Rate > 60, BUN/Creatinine Ratio 16, Glucose Level 139, Calcium Level 8.9, Corrected Calcium 9.5, Magnesium Level 1.6, Total Bilirubin 2.7, Aspartate Amino Transf (AST/SGOT) 26, Alanine Aminotransferase (ALT/SGPT) 32, Alkaline Phosphatase 78, Myoglobin 55.5, Troponin I 0.040, B-Type Natriuretic Peptide 1255.4, Total Protein 6.6, Albumin 3.3, Thyroid Stimulating Hormone (TSH) 0.92, Free Thyroxine 1.27 11/01/19 13:25: Urine Opiates Screen NEGATIVE, Urine Oxycodone Screen NEGATIVE, Urine Methadone Screen NEGATIVE, Urine Propoxyphene Screen NEGATIVE, Urine Barbiturates Screen NEGATIVE, Ur Tricyclic Antidepressants Screen NEGATIVE, Urine Phencyclidine Screen NEGATIVE, Urine Amphetamines Screen NEGATIVE, Urine Methamphetamines Screen NEGATIVE, Urine Benzodiazepines Screen NEGATIVE, Urine Cocaine Screen NEGATIVE, Urine Cannabinoids Screen NEGATIVE 11/01/19 14:50: Lactic Acid Level 1.94 11/01/19 15:15: Blood Gas Puncture Site R RADIAL, Blood Gas Patient Temperature 36.4, Arterial Blood pH 7.50, Arterial Blood Partial Pressure CO2 29, Arterial Blood Partial Pressure O2 84, Arterial Blood HCO3 23, Arterial Blood Total CO2 23.4, Arterial Blood Oxygen Saturation 98, Arterial Blood Base Excess -0.5, Benjamin Test YES-POS, Blood Gas Ventilator Setting NO, Blood Gas Inspired Oxygen 2 11/01/19 20:46: Glucometer 182 11/02/19 03:37: White Blood Count 11.0, Red Blood Count 5.02, Hemoglobin 14.8, Hematocrit 46, Mean Corpuscular Volume 91, Mean Corpuscular Hemoglobin 30, Mean Corpuscular Hemoglobin Concent 33, Red Cell Distribution Width 13.6, Platelet Count 374, Mean Platelet Volume 11.0, Neutrophils (%) (Auto) 82, Lymphocytes (%) (Auto) 11, Monocytes (%) (Auto) 7, Eosinophils (%) (Auto) 1, Basophils (%) (Auto) 0, Neutrophils # (Auto) 9.0, Lymphocytes # (Auto) 1.2, Monocytes # (Auto) 0.7, Eosinophils # (Auto) 0.1, Basophils # (Auto) 0.0, Sodium Level 139, Potassium Level 3.6, Chloride Level 107, Carbon Dioxide Level 17, Anion Gap 15, Blood Urea Nitrogen 17, Creatinine 0.86, Estimat Glomerular Filtration Rate > 60, BUN/Creatinine Ratio 20, Glucose Level 169, Calcium Level 8.7, Corrected Calcium 9.5, Phosphorus Level 3.8, Magnesium Level 1.9, Total Bilirubin 1.8, Aspartate Amino Transf (AST/SGOT) 39, Alanine Aminotransferase (ALT/SGPT) 32, Alkaline Phosphatase 82, Total Protein 6.4, Albumin 3.0, Triglycerides Level 79, Cholesterol Level 109, LDL Cholesterol Direct 94, VLDL Cholesterol 16, HDL Cholesterol 17 11/02/19 11:31: Glucometer 166 11/02/19 15:29: Glucometer 146 11/02/19 20:42: Glucometer 124 11/03/19 03:13: Sodium Level 140, Potassium Level 3.1, Chloride Level 105, Carbon Dioxide Level 22, Anion Gap 13, Blood Urea Nitrogen 13, Creatinine 0.82, Estimat Glomerular Filtration Rate > 60, BUN/Creatinine Ratio 16, Glucose Level 123, Calcium Level 8.3, Phosphorus Level 3.3, Magnesium Level 1.5 11/03/19 11:09: Glucometer 144 11/03/19 15:36: Glucometer 139 11/03/19 16:37: Sodium Level 142, Potassium Level 3.5, Chloride Level 103, Carbon Dioxide Level 27, Anion Gap 12, Blood Urea Nitrogen 13, Creatinine 1.03, Estimat Glomerular Filtration Rate > 60, BUN/Creatinine Ratio 13, Glucose Level 112, Calcium Level 8.3, Phosphorus Level 2.1, Magnesium Level 1.6 11/03/19 20:27: Glucometer 133 11/04/19 03:58: Sodium Level 141, Potassium Level 3.3, Chloride Level 103, Carbon Dioxide Level 24, Anion Gap 14, Blood Urea Nitrogen 15, Creatinine 0.92, Estimat Glomerular Filtration Rate > 60, BUN/Creatinine Ratio 16, Glucose Level 123, Calcium Level 8.4, White Blood Count 11.8, Red Blood Count 5.31, Hemoglobin 15.7, Hematocrit 48, Mean Corpuscular Volume 90, Mean Corpuscular Hemoglobin 30, Mean Corpuscular Hemoglobin Concent 33, Red Cell Distribution Width 13.9, Platelet Count 367, Mean Platelet Volume 10.3, Neutrophils (%) (Auto) 76, Lymphocytes (%) (Auto) 14, Monocytes (%) (Auto) 8, Eosinophils (%) (Auto) 2, Basophils (%) (Auto) 0, Neutrophils # (Auto) 9.0, Lymphocytes # (Auto) 1.6, Monocytes # (Auto) 0.9, Eosinophils # (Auto) 0.3, Basophils # (Auto) 0.0, Prothrombin Time 16.7, INR International Normalized Ratio 1.4, Mix PT Patient/Normal 1:1 14.3, Mix PT Patient/Normal 1:1 Incubated 15.2, Mix PTT Patient/Normal 1:1 34.8, Mix PTT Patient/Normal 1:1 Incubat 39.4, Thrombin Time 17.7, Lupus Anticoagulant APTT 41.0, Lupus Anticoagulant PTT Baseline 41.2, Dil Jorge Viper Venom Time Screen 1.08, DRVVT Confirmation Interpretation , DRVVT Mixing Study , Hexagonal Phase Phospholipid Negative, Coagulation Factor Inhibitor Screen Equivocal, Anticoagulation Therapy Unknown, Corrected Calcium 9.4, Total Bilirubin 1.6, Aspartate Amino Transf (AST/SGOT) 42, Alanine Aminotransferase (ALT/SGPT) 58, Alkaline Phosphatase 71, Total Protein 6.1, Albumin 2.8 11/04/19 07:45: Prothrombin Time 16.5, INR Comment 1.3 11/04/19 13:56: Glucometer 102 11/04/19 16:36: Glucometer 125 11/05/19 03:25: White Blood Count 11.1, Red Blood Count 5.43, Hemoglobin 15.9, Hematocrit 49, Mean Corpuscular Volume 91, Mean Corpuscular Hemoglobin 29, Mean Corpuscular Hemoglobin Concent 32, Red Cell Distribution Width 14.1, Platelet Count 443, Mean Platelet Volume 10.1, Neutrophils (%) (Auto) 71, Lymphocytes (%) (Auto) 20, Monocytes (%) (Auto) 6, Eosinophils (%) (Auto) 3, Basophils (%) (Auto) 0, Neutrophils # (Auto) 7.8, Lymphocytes # (Auto) 2.2, Monocytes # (Auto) 0.7, Eosinophils # (Auto) 0.3, Basophils # (Auto) 0.0, Sodium Level 142, Potassium Level 3.7, Chloride Level 102, Carbon Dioxide Level 25, Anion Gap 15, Blood Urea Nitrogen 15, Creatinine 1.01, Estimat Glomerular Filtration Rate > 60, BUN/Creatinine Ratio 15, Glucose Level 118, Calcium Level 8.5, Corrected Calcium 9.3, Total Bilirubin 1.5, Aspartate Amino Transf (AST/SGOT) 48, Alanine Aminotransferase (ALT/SGPT) 55, Alkaline Phosphatase 82, Total Protein 6.3, Albumin 3.0 11/05/19 11:21: Glucometer 111 11/05/19 16:34: Glucometer 119 11/05/19 20:12: Glucometer 136 11/06/19 04:45: White Blood Count 10.8, Red Blood Count 5.44, Hemoglobin 16.2, Hematocrit 50, Mean Corpuscular Volume 92, Mean Corpuscular Hemoglobin 30, Mean Corpuscular Hemoglobin Concent 33, Red Cell Distribution Width 14.7, Platelet Count 319, Mean Platelet Volume 10.4, Neutrophils (%) (Auto) 71, Lymphocytes (%) (Auto) 19, Monocytes (%) (Auto) 6, Eosinophils (%) (Auto) 4, Basophils (%) (Auto) 0, Neutrophils # (Auto) 7.6, Lymphocytes # (Auto) 2.1, Monocytes # (Auto) 0.6, Eosinophils # (Auto) 0.4, Basophils # (Auto) 0.0, Sodium Level 141, Potassium Level 3.6, Chloride Level 102, Carbon Dioxide Level 25, Anion Gap 14, Blood Urea Nitrogen 19, Creatinine 1.02, Estimat Glomerular Filtration Rate > 60, BUN/Creatinine Ratio 19, Glucose Level 117, Calcium Level 8.6, Corrected Calcium 9.5, Total Bilirubin 1.3, Aspartate Amino Transf (AST/SGOT) 44, Alanine Aminotransferase (ALT/SGPT) 48, Alkaline Phosphatase 61, Total Protein 6.3, Albumin 2.9 11/06/19 05:46: Glucometer 113 11/07/19 04:45: White Blood Count 10.5, Red Blood Count 5.46, Hemoglobin 16.0, Hematocrit 49, Mean Corpuscular Volume 90, Mean Corpuscular Hemoglobin 29, Mean Corpuscular Hemoglobin Concent 33, Red Cell Distribution Width 14.1, Platelet Count 413, Mean Platelet Volume 9.9, Neutrophils (%) (Auto) 70, Lymphocytes (%) (Auto) 19, Monocytes (%) (Auto) 7, Eosinophils (%) (Auto) 4, Basophils (%) (Auto) 0, Neutrophils # (Auto) 7.4, Lymphocytes # (Auto) 2.0, Monocytes # (Auto) 0.7, Eosinophils # (Auto) 0.4, Basophils # (Auto) 0.0, Sodium Level 140, Potassium Level 3.3, Chloride Level 102, Carbon Dioxide Level 25, Anion Gap 13, Blood Urea Nitrogen 21, Creatinine 0.89, Estimat Glomerular Filtration Rate > 60, BUN/Creatinine Ratio 24, Glucose Level 114, Calcium Level 8.6, Corrected Calcium 9.5, Magnesium Level 1.4, Total Bilirubin 1.1, Aspartate Amino Transf (AST/SGOT) 31, Alanine Aminotransferase (ALT/SGPT) 40, Alkaline Phosphatase 61, Total Protein 6.2, Albumin 2.9 11/07/19 11:32: Glucometer 105 11/08/19 04:36: White Blood Count 10.8, Red Blood Count 5.39, Hemoglobin 15.6, Hematocrit 49, Mean Corpuscular Volume 91, Mean Corpuscular Hemoglobin 29, Mean Corpuscular Hemoglobin Concent 32, Red Cell Distribution Width 14.0, Platelet Count 412, Mean Platelet Volume 10.1, Neutrophils (%) (Auto) 71, Lymphocytes (%) (Auto) 20, Monocytes (%) (Auto) 6, Eosinophils (%) (Auto) 3, Basophils (%) (Auto) 0, Neutrophils # (Auto) 7.6, Lymphocytes # (Auto) 2.1, Monocytes # (Auto) 0.7, Eosinophils # (Auto) 0.3, Basophils # (Auto) 0.0, Sodium Level 140, Potassium Level 3.8, Chloride Level 103, Carbon Dioxide Level 24, Anion Gap 13, Blood Urea Nitrogen 28, Creatinine 0.96, Estimat Glomerular Filtration Rate > 60, BUN/Creatinine Ratio 29, Glucose Level 103, Calcium Level 8.7, Corrected Calcium 9.5, Total Bilirubin 0.9, Aspartate Amino Transf (AST/SGOT) 32, Alanine Aminotransferase (ALT/SGPT) 35, Alkaline Phosphatase 66, Total Protein 6.5, Albumin 3.0 Discharge Home Medications: Active Scripts Active Lasix (Furosemide) 40 Mg Tablet 40 Mg PO DAILY Entresto 49 mg-51 mg Tablet (Sacubitril/Valsartan) 1 Each Tablet 1 Tab PO BID Metoprolol Succinate 25 Mg Tab.er.24h 50 Mg PO BID Eliquis (Apixaban) 5 Mg Tablet 10 Mg PO BID 2 pills twice daily for 6 days then 1 pill twice daily until futher notice Instructions to patient/family Please see electronic discharge instructions given to patient. Diagnosis/Problems Diagnosis/Problems (1) Bilateral pulmonary embolism (2) Acute CHF Status: Acute Qualifiers: Qualified Codes: I50.9 - Heart failure, unspecified (3) Atrial fibrillation with rapid ventricular response Status: Acute (4) Acute cor pulmonale Status: Acute (5) Anxiety (6) Abnormal albumin (7) Elevated troponin (8) History of melanoma (9) Left leg DVT (10) Elevated brain natriuretic peptide (BNP) level (11) Cardiomyopathy (12) S/P cardiac cath Clinical Quality Measures DVT/VTE Risk/Contraindication: Risk Factor Score Per Nursin RFS Level Per Nursing on Admit: 4+=Very High PATY MENDOZA DO Nov 08, 2019 08:24
[2019-11-08 08:55] VITALS: BP 95/63
[2019-11-08] MEDS: APIXABAN 5 MG (ELIQUIS) TABLET PO SCH (10:06)
[2019-11-08] MEDS: SACUBITRIL/VALSARTAN 24/26 MG (ENTRESTO) TABLET PO SCH (10:06)
[2019-11-08] MEDS: PANTOPRAZOLE 40 MG (PROTONIX) TAB PO SCH (10:06)
--- NOTE | 2019-11-08 10:25 | Progress Note ---
LEDY SINCLAIR MED STUDENT 11/08/19 1025: Progress Note Pt presented to ED 11/01/2019 after discovery of right sided pleural effusion and presentation of shortness of breath and dizziness at [facility]. CT demonstrated bilateral pulmonary emboli and EKG performed revealed atrial fibrillation with rapid ventricular response. Patient was admitted for PE/DVT treatment and management of acute cor pulmonale. Cardiology was consulted and led care for acute cor pulmonale and atrial fibrillation. Patient was started on amiodarone and conversion was declined by patient. Surgery and pulmonolgy was consulted and provided support of pleural effusion. Patient's shortness of breath and cough markedly improved after lasix therapy, physical therapy and occupational. Resolution of pleural effusion was confirmed with serial chest xrays. Total hospital stay was 8 days, and patient was discharged 11/08/2019 with Life Vest and close follow up with primary doctor. JUSTYNA HIGHTOWER DO 11/09/19 0605: Supervisory-Addendum Brief Verification & Attestation Participated in pt care: history, MDM, physical Personally performed: exam, history, MDM, supervision of care Care discussed with: Medical Student Procedures: n/a Results interpretation: Verified all documentation Verification and Attestation of Medical Student E/M Service A medical student performed and documented this service in my presence. I reviewed and verified all information documented by the medical student and made modifications to such information, when appropriate. I personally performed the physical exam and medical decision making. Justyna Hightower, Nov 09, 2019,06:04 LEDY SINCLAIR MED STUDENT Nov 08, 2019 10:25 JUSTYNA HIGHTOWER DO Nov 09, 2019 06:05
--- NOTE | 2019-11-08 11:14 | Occ Therapy Progress Note ---
Therapy Progress Note Pt upright in recliner stating he is waiting on his Life Vest to come today and then he will hopefully be able to discharge later this afternoon. He pleasantly declined OT tx at this time stating he is "mentally worn out" and that he would prefer to rest. OT will attempt again later. 1, visit 1110 JAZ PANIAGUA OT Nov 08, 2019 11:14
--- NOTE | 2019-11-08 11:59 | NUR ---
CM/SS follow up with patient. The patients nurse stated the patient needed Eliquis and Entresto. The patient does not have insurance and declined filling out the Medicaid application that Financial Services tried to assist him with. CM/SS discussed medications with the Pharmacist, Sadi. A 30 day trial/coupon was provided to the patient for both medications; however, for additional refills the patient will need to follow up with his [place] assessor due to there not being a generic for Entresto. CM/SS did give him a number to call to apply for financial assistance with the drug company. Life vest: CM/SS talked with Shayne who stated the patient did not have the money for the down payment of $250.00. CM/SS called the foundation who stated they would be willing to cover the cost. The life vest should be fit on the patient today. The patient stated that he did not have any other needs and was thankful for the assistance from CM/SS.
[2019-11-08 12:45] VITALS: BP 101/70
--- NOTE | 2019-11-08 16:00 | NUR ---
THIS RN TOOK OVER PATIENT CARE AT THIS TIME. PATIENT TO DC TONIGHT ONCE LIFE VEST IS FITTED ON PATIENT. PATIENT ALERT AND ORIENTATED AND VERBALIZES NO OTHER CONCERNS AT THIS TIME
--- NOTE | 2019-11-08 18:00 | NUR ---
NO IV ACCESS. PT PULLED OUT HIS IV. STATED "HE DIDN'T WANT IT ANYMORE"
--- NOTE | 2019-11-08 18:46 | Cardiology Progress Note ---
Cardiology SOAP Progress Note Subjective: Significantly improved shortness of breath. Objective: I&O/Vital Signs 11/08/19 11/08/19 11/08/19 11/08/19 07:00 08:55 09:00 12:40 Temp 36.7 Pulse 98 103 98 Resp 20 B/P (MAP) 95/63 (74) Pulse Ox 96 O2 Delivery Room Air Room Air 11/08/19 11/08/19 12:45 15:44 Temp 36.4 Pulse 86 Resp 20 B/P (MAP) 101/70 (80) Pulse Ox 97 O2 Delivery Room Air 11/08/19 00:00 Intake Total 1400 ml Output Total 300 ml Balance 1100 ml Constitutional: appears stated age, AAO x 3 Respiratory: chest is bilaterally symmetric, other (decreased air entry bilaterally) Cardiovascular: irregularly irregular, S1 and S2 Gastrointestional: soft, audible bowel sounds; No spleenomegaly Extremities: normal range of motion, non-tender, normal inspection; No cl ubbing, No cyanosis; no lower extremity edema bilateral; No significant edema Neurologic/Psychiatric: no motor/sensory deficits, alert, normal mood/affect, oriented x 3, power is 5/5 both on sides Skin: normal color, warm/dry; No rash, No ulcerations Results/Procedures: Labs Laboratory Tests 11/08/19 04:36: White Blood Count 10.8, Red Blood Count 5.39, Hemoglobin 15.6, Hematocrit 49, Mean Corpuscular Volume 91, Mean Corpuscular Hemoglobin 29, Mean Corpuscular Hemoglobin Concent 32, Red Cell Distribution Width 14.0, Platelet Count 412H, M ana laura Platelet Volume 10.1, Neutrophils (%) (Auto) 71, Lymphocytes (%) (Auto) 20, Monocytes (%) (Auto) 6, Eosinophils (%) (Auto) 3, Basophils (%) (Auto) 0, Neutrophils # (Auto) 7.6, Lymphocytes # (Auto) 2.1, Monocytes # (Auto) 0.7, Eosinophils # (Auto) 0.3, Basophils # (Auto) 0.0, Sodium Level 140, Potassium Level 3.8, Chloride Level 103, Carbon Dioxide Level 24, Anion Gap 13, Blood Urea Nitrogen 28H, Creatinine 0.96, Estimat Glomerular Filtration Rate > 60, BUN/Creatinine Ratio 29, Glucose Level 103, Calcium Level 8.7, Corrected Calcium 9.5, Total Bilirubin 0.9, Aspartate Amino Transf (AST/SGOT) 32, Alanine Amino transferase (ALT/SGPT) 35, Alkaline Phosphatase 66, Total Protein 6.5, Albumin 3.0L Microbiology 11/01/19 MRSA Screen - Final, Complete MRSA not isolated 11/01/19 Blood Culture - Final, Complete No growth A/P: Assessment/Dx: Bilateral PE, Severe right-sided pneumonia, Non-STEMI, Atrial fibrillation with rapid ventricular rate, Severe cardiomyopathy Plan: Bilateral PE, ,Eliquis Positive DVT. Severe right-sided pneumonia, broad-spectrum antibiotics. Defer to the primary team. Non-STEMI, could be type II myocardial infarction secondary to severe systemic illness including bilateral PE and severe right-sided pneumonia. Coronary angiography done 11/04/2019 showed no CAD. Atrial fibrillation with more controlled ventricular rate., anticoagulation and rate control. IV amiodarone as well. Unlikely to convert till resolution of severe systemic illness. Change Cardizem to Lopressor. I spoke to him today about transesophageal echocardiogram assisted cardioversion. Patient was very hesitant to undergo cardioversion. I asked the patient again today and he is refusing cardioversion. Severe dilated nonischemic cardiomyopathy, new onset. Coronary angiography 11/04/2019 showed normal coronaries. treat for severe acute congestive heart failure and cardiomyopathy with IV Lasix. On Entresto and Lopressor. LifeVest for primary prevention of sudden cardiac . Still waiting for the LifeVest. Thank you for your consultation. Please call me if you have any questions. Bruce Fine MD, FACP, FACC, FSCAI, FHRS, CCDS Interventional Cardiology Cardiac Electrophysiology Vascular Medicine and Endovascular Interventions Vincent FINE MD Nov 08, 2019 18:45
== END 2019-11-08 19:45 | disposition home or self-care (01) | DRG 280 ==
LOC: EDUNIT# 11:57 → ER 11:59 → ICU 13:40 → CSD 11-03 15:27 → ICU 11-04 12:10 → CSD 11-04 16:10 → 4TH 11-05 16:11
PROVIDERS: ADMIT Internal Medicine; ATTEND Internal Medicine
PROC: 4A023N7 Measurement of Cardiac Sampling and Pressure, Left Heart, Percutaneous Approach (ICD-10-PCS; principal; 2019-11-04)
PROC: B211YZZ Fluoroscopy of Multiple Coronary Arteries using Other Contrast (ICD-10-PCS; 2019-11-04)
DX: I11.0 Hypertensive heart disease with heart failure (principal); I21.A1 Myocardial infarction type 2; I50.21 Acute systolic (congestive) heart failure; I26.09 Other pulmonary embolism with acute cor pulmonale; J18.9 Pneumonia, unspecified organism; I82.4Z2 Acute embolism and thrombosis of unspecified deep veins of left distal lower extremity; J90 Pleural effusion, not elsewhere classified; E87.2 Acidosis; I42.9 Cardiomyopathy, unspecified; I48.91 Unspecified atrial fibrillation; R09.02 Hypoxemia; E87.6 Hypokalemia; R00.0 Tachycardia, unspecified; F41.9 Anxiety disorder, unspecified; E88.09 Other disorders of plasma-protein metabolism, not elsewhere classified; Z85.820 Personal history of malignant melanoma of skin
CPT/HCPCS: 36415; 36600; 71045; 71046; 71275; 80048; 80053; 80061; 80306; 82805; 82962; 83605; 83735; 83874; 83880; 84100; 84439; 84443; 84484; 85025; 85597; 85610; 85613; 85670; 85705; 85730; 87040; 87081; 87804; 93005; 93041; 93306; 93458; 93970; 94640; 94664; 94760; 96365; 96366; 96367; 96368; 96372; 96375